=== PATIENT | female | born 1940 | race Caucasian/White ===

== ENCOUNTER 2021-10-31 10:15 | Emergency (ER) | payer OTHER ==
--- OUTSIDE RECORDS SUMMARY | 2021-10-31 10:18 | XMS REPORT | Continuity of Care Document ---
:1940 Author Organization [facility] t Address [address] [place] [address] Care Team Providers Name Role Phone Colleen Singh Attending Clinician Unavailable Millender Attending Clinician Unavailable Problems This patient has no known problems. Allergies, Adverse Reactions, Alerts This patient has no known allergies or adverse reactions. Medications This patient has no known medications. Procedures This patient has no known procedures. Encounters Start End Encounter Admission Attending Care Care Encounter Source Date/Time Date/Time Type Type Clinicians Facility Department ID 2021-09-29 Outpatient Singh, Na STLML[facility] ST[facility] [id number] 2 Common 09:09:02 [facility] 2021-07-03 Outpatient Singh, Na STLMLC STL[facility]C [id number] 2 Common 14:46:00 [facility] 2021-06-21 Outpatient Singh, Na STLMLC STLMLC [id number] 2 Common 14:22:28 [id number] [facility] 2021-06-21 Outpatient Singh, Na STLMLC STLMLC [id number] 2 Common 13:42:15 [id number] [facility] 2021-06-21 Outpatient Singh, Na STLMLC STLMLC [id number] 2 Common 13:29:49 [id number] [facility] 2021-06-21 Outpatient Singh, Na STLMLC STLMLC [id number] 2 Common 13:29:15 [id number] [facility] 2021-06-21 Outpatient Singh, Na STLMLC STLMLC [id number] 2 Common 13:13:13 [id number] [facility] 2021-06-21 Outpatient Singh, Na STLMLC STLMLC [id number] 2 Common 13:12:38 [id number] [facility] 2021-06-21 Outpatient Singh, Na STLMLC STLMLC [id number] 2 Common 12:39:38 [id number] [facility] 2021-06-21 Outpatient Singh, Na STLMLC STLMLC [id number] 2 Common 12:38:55 [id number] [facility] 2021-06-21 Outpatient Singh, Na STLMLC STLMLC [id number] 2 Common 12:05:32 [id number] [facility] 2021-06-21 Outpatient Singh, Na STLMLC STLMLC [id number] 2 Common 12:05:08 [id number] [facility] 2021-06-21 Outpatient Singh, Na STLMLC STLMLC [id number] 2 Common 12:04:34 [id number] [facility] 2021-06-21 Outpatient Millender, STLMLC STLMLC [id number]- Common 12:03:18 Elsy [id number] [facility] 2021-06-21 Outpatient Millender, STLMLC STLMLC [id number]- Common 11:49:01 Elsy [id number] [facility] 2021-06-21 Outpatient Millender, STLMLC STLMLC [id number]- Common 11:48:17 Elsy [id number] [facility] 2021-06-21 Outpatient Millender, STLMLC STLMLC [id number]- Common 11:40:18 Elsy [id number] [facility] 2021-10-03 2021-10-03 ambulatory STLMLC STLMLC [id number] Common 00:00:00 00:00:00 [facility] 2021-07-04 2021-07-04 ambulatory STLMLC STLMLC [id number] Common 00:00:00 00:00:00 [facility] 2021-05-11 2021-05-11 ambulatory STLMLC STLMLC [id number] Common 00:00:00 00:00:00 [facility] 2021-05-03 2021-05-03 ambulatory STLMLC STL[facility]C [id number] Common 00:00:00 00:00:00 [facility] 2021-04-17 2021-04-17 ambulatory STLMLC STL[facility]C [id number] Common 00:00:00 00:00:00 [facility] 2021-01-17 2021-01-17 Outpatient STLMLC STL[facility]C [id number] Common 00:00:00 00:00:00 [facility] 2020-12-28 2020-12-28 Outpatient STLMLC STL[facility]C [id number] Common 00:00:00 00:00:00 [facility] 2020-12-19 2020-12-19 Outpatient STLMLC STL[facility]C [id number] Common 00:00:00 00:00:00 [facility] 2020-12-16 2020-12-16 Outpatient [facility]LMLC STL[facility]C [id number] Common 00:00:00 00:00:00 [facility] 2020-12-08 2020-12-08 Outpatient [facility]C STL[facility]C [id number] Common 00:00:00 00:00:00 [facility] 2020-11-20 2020-11-20 Outpatient [facility]C ST[facility]C [id number] Common 00:00:00 00:00:00 [facility] 2020-11-04 2020-11-04 Outpatient [facility] ST[facility]C [id number] Common 00:00:00 00:00:00 [facility] 2020-08-05 2020-08-05 Outpatient [facility] ST[facility] [id number] Common 00:00:00 00:00:00 [facility] 2020-04-19 2020-04-19 Outpatient [facility] ST[facility]C [id number] Common 00:00:00 00:00:00 [facility] 2020-04-11 2020-04-11 [facility] [id number] Common 00:00:00 00:00:00 [facility] 2020-02-18 2020-02-18 [facility] [id number] Common 00:00:00 00:00:00 [facility] Results This patient has no known results.
[2021-10-31] MEDS ORDERED: NA CHLORIDE 0.9% 500 ML ONE (11:20)
[2021-10-31 11:32] LABS: Absolute Lymphocytes (CBC) 2.2 K/uL (0.7-4.9); Hematocrit 38.2 % (36.0-45.0); Lymphocytes % 35.4 % (15.3-44.8); MPV 9.4 fL (7.6-11.3); RBC Red Blood Cell Count 4.57 M/uL (3.86-4.86)
[2021-10-31 11:35] LABS: Protime INR 0.99
--- NOTE | 2021-10-31 11:38 | RAD REPORT ---
EXAM DESCRIPTION: CT - Head Brain Wo Cont - 10/31/2021 11:24 am CLINICAL HISTORY: Headache, new or worsening COMPARISON: No comparisons TECHNIQUE: Axial 5 mm thick images of the head were obtained without IV contrast. All CT scans are performed using dose optimization technique as appropriate and may include automated exposure control or mA/KV adjustment according to patient size. FINDINGS: No intracranial hemorrhage, mass, edema or shift of mid-line structures. No acute infarcti on changes seen. No abnormal extra-axial fluid collections. Ventricles are normal. No significant atr ophy or chronic ischemic change. Arterial tree calcifications are present. Mastoid air cells and visualized portions of the paranasal sinuses are clear. No acute bony findings. IMPRESSION: Negative non-contrast CT head examination for acute or significant finding.
[2021-10-31 12:03] LABS: ALT/SGPT 21 U/L (12-78); AST/SGOT 14 U/L (15-37); Albumin 3.8 g/dL (3.4-5.0); Alkaline Phosphatase 89 U/L (45-117); BUN Blood Urea Nitrogen 17 mg/dL (7-18); Bicarbonate 26 mmol/L (21-32); Bilirubin Total 0.3 mg/dL (0.2-1.0); Glomerular Filtration Rate 58 ml/min (=/>90); Glucose Level 124 mg/dL (74-106); Magnesium 2.2 mg/dL (1.8-2.4); Protein, Total 7.7 g/dL (6.4-8.2); Sodium Level 139 mmol/L (136-145)
[2021-10-31 12:04] LABS: Bilirubin Direct < 0.1 mg/dL (0-0.2)
--- NOTE | 2021-10-31 12:50 | EDPHYS ---
Physician Documentation [facility] Name: Sol Whittaker Age: 80 yrs Sex: Female : 1940 Arrival Date: 10/31/2021 Time: 10:19 Bed 6 Private MD: Shirley Singh ED Physician Jorge Colvin HPI: 10/31 12:41 This 80 yrs old Female presents to ER via Wheelchair with complaints of Dizziness. rn 12:41 The patient presents with dizziness. Onset: The symptoms/episode began/occurred 3 rn week(s) ago. Modifying factors: The symptoms are alleviated by lying down, the symptoms are aggravated by standing up, changing position. Severity of symptoms: At their worst the symptoms were moderate in the emergency department the symptoms have improved. The patient has experienced similar episodes in the past. The patient has been recently seen by a physician:. Reports intermittent dizziness, for 3 weeks, seen by pcp and told to stay hydrated. Pt reports worse in morning and when changing position. Was doing ok and then dizziness hit her again the last few days. Does not feel unsteady or falling, gets better on its own throughout the day, and best when not moving. NO chest pain/sob/abd pain/vomiting/diarrhea. No blood in stool. No recent head injury.. Historical: - Allergies: 10:27 MING INHIBITORS; ap3 10:27 Codeine; ap3 10:27 metoclopramide HCl; ap3 10:27 sulfamethoxazole; ap3 10:27 TRIMETHOPRIM; ap3 - PMHx: 10:27 Diabetes mellitus; Hypertensive disorder; ap3 - PSHx: 10:27 Appendectomy; Cholecystectomy; ap3 - Immunization history:: Client reports receiving the 2nd dose of the Covid vaccine. - Social history:: Smoking status: Patient/guardian denies using tobacco, the patient reports quitting approximately 30 years ago. - Family history:: not pertinent. - Hospitalizations: : No recent hospitalization is reported. ROS: 12:41 Constitutional: Negative for fever, chills, and weight loss, Eyes: Negative for injury, rn pain, redness, and discharge, Neck: Negative for injury, pain, and swelling, Cardiovascular: Negative for chest pain, palpitations, and edema, Respiratory: Negative for shortness of breath, cough, wheezing, and pleuritic chest pain, Abdomen/GI: Negative for abdominal pain, nausea, vomiting, diarrhea, and constipation, Back: Negative for injury and pain, : Negative for injury, bleeding, discharge, and swelling, MS/Extremity: Negative for injury and deformity, Skin: Negative for injury, rash, and discoloration, Neuro: Negative for headache, weakness, numbness, tingling, and seizure. Exam: 12:41 Constitutional: This is a well developed, well nourished patient who is awake, alert, rn and in no acute distress. Head/Face: Normocephalic, atraumatic. Eyes: Pupils equal round and reactive to light, extra-ocular motions intact. Lids and lashes normal. Conjunctiva and sclera are non-icteric and not injected. Cornea within normal limits. Periorbital areas with no swelling, redness, or edema. Neck: Trachea midline, no masses palpated, and no cervical lymphadenopathy. Supple, full range of motion without nuchal rigidity, or vertebral point tenderness. No Meningismus. Cardiovascular: Regular rate and rhythm. No pulse deficits. Respiratory: No increased work of breathing, no retractions or nasal flaring. Abdomen/GI: soft, non-tender, no masses Skin: Warm, dry MS/ Extremity: Pulses equal, no cyanosis. Neuro: Awake and alert, GCS 15, oriented to person, place, time, and situation. Cranial nerves II-XII grossly intact. Motor strength 5/5 in all extremities. Sensory grossly intact. Cerebellar exam normal. Vital Signs: 10:23 Pulse 72; Resp 17; Temp 97.7; Pulse Ox 97% ; Weight 79.83 kg; Height 5 ft. 6 in. ap3 (167.64 cm); 10:23 BP 155 / 79; ap3 11:49 BP 171 / 78; Pulse 64; Resp 14; Pulse Ox 93% ; bp 13:01 BP 165 / 84; Pulse 65; Resp 10; Pulse Ox 99% ; bp 10:23 Body Mass Index 28.41 (79.83 kg, 167.64 cm) ap3 MDM: 10:24 Patient medically screened. rn 12:41 Differential diagnosis: CVA, generalized weakness, hypovolemia, idiopathic dizziness, rn vertigo. Data reviewed: vital signs, nurses notes, lab test result(s), EKG, radiologic studies, CT scan, and as a result, I will discharge patient. Counseling: I had a detailed discussion with the patient and/or guardian regarding: the historical points, exam findings, and any diagnostic results supporting the discharge/admit diagnosis, lab results, radiology results, the need for outpatient follow up, to return to the emergency department if symptoms worsen or persist or if there are any questions or concerns that arise at home. Response to treatment: the patient's symptoms have markedly improved after treatment, and as a result, I will discharge patient. Special discussion: I discussed with the patient/guardian in detail that at this point there is no indication for admission to the hospital. It is understood, however, that if the symptoms persist or worsen the patient needs to return immediately for re-evaluation. Based on the history and exam findings, there is no indication for further emergent testing or inpatient evaluation. I discussed with the patient/guardian the need to see the neurologist for further evaluation of the symptoms. ED course: Pt improved without intervention, no acute findings in w/u here, normal renal function, normal h/h, neg ct head, no ischemia on ecg, stable vitals. Will dc home with neuro f/u if symptoms do not improve. Given return precautions.. 10/31 10:42 Order name: Glucose, Ancillary Testing; Complete Time: 10:46 EDMS 10/31 11:03 Order name: Basic Metabolic Panel; Complete Time: 12: rn 10/31 11:03 Order name: CBC with Diff; Complete Time: rn 10/31 11:03 Order name: Hepatic Function; Complete Time: 12: rn 10/31 11:03 Order name: Magnesium; Complete Time: 12: rn 10/31 11:03 Order name: Protime (+inr); Complete Time: rn 10/31 11:03 Order name: Ptt, Activated; Complete Time: : rn 10/31 11:03 Order name: CT Head Brain wo Cont; Complete Time: : rn 10/31 11:03 Order name: EKG; Complete Time: 11: rn 10/31 11:03 Order name: Cardiac monitoring; Complete Time: :10/31 13:10 Order name: Urine Dipstick-Ancillary EDMS 10/31 11:03 Order name: EKG - Nurse/Tech; Complete Time: 10/31 11:03 Order name: IV Saline Lock; Complete Time: 11:20 rn 10/31 11:03 Order name: Labs collected and sent; Complete Time: 11:20 rn 10/31 11:03 Order name: O2 Per Protocol; Complete Time: 11:04 rn 10/31 11:03 Order name: O2 Sat Monitoring; Complete Time: 11:04 rn 10/31 11:03 Order name: Urine Dipstick-Ancillary (obtain specimen); Complete Time: 13:18 rn Administered Medications: 11:15 Drug: NS 0.9% 500 ml Route: IV; Rate: bolus; Site: right forearm; bp 13:19 Follow up: IV Status: Completed infusion; IV Intake: 500ml bp 12:45 Drug: Meclizine 25 mg Route: PO; bp 13:18 Follow up: Response: Marked relief of symptoms bp 13:15 Drug: Cipro (ciprofloxacin) 500 mg Route: PO; bp 13:18 Follow up: Response: No adverse reaction bp Point of Care Testing: Blood Glucose: 10:30 Blood Glucose: 119 mg/dL; ap3 Ranges: Critical Glucose Levels:Adult <50 mg/dl or >400 mg/dl <40 mg/dl or >180 mg/dl Disposition Summary: 10/31/21 12:49 Discharge Ordered Location: Home rn Problem: new rn Symptoms: have improved rn Condition: Stable rn Diagnosis - Dizziness and giddiness rn - UTI/ Urinary tract infection, site not specified rn Followup: rn - With: Frederick Greer MD - When: As needed - Reason: Recheck today's complaints, Re-evaluation by your physician Discharge Instructions: - Discharge Summary Sheet rn - Dizziness rn - Urinary Tract Infection, Adult rn Forms: - Medication Reconciliation Form rn - Thank You Letter rn - 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
--- NOTE | 2021-10-31 12:50 | ER ---
Nurse's Notes [facility] Name: Sol Whittaker Age: 80 yrs Sex: Female : 1940 Arrival Date: 10/31/2021 Time: 10:19 Bed 6 Private MD: Shirley Singh Diagnosis: Dizziness and giddiness;UTI/ Urinary tract infection, site not specified Presentation: 10/31 10:23 Chief complaint: Patient states: that for a few weeks, she has had a few days where she ap3 wakes up feeling dizzy. Patient reports the dizzy feeling wears off as the day goes on. Patient states that she had a video call with her PCP, and was informed to come be evaluated by the ED. Coronavirus screen: At this time, the client does not indicate any symptoms associated with coronavirus-19. Ebola Screen: No symptoms or risks identified at this time. Initial Sepsis Screen: Does the patient meet any 2 criteria? No. Patient's initial sepsis screen is negative. Does the patient have a suspected source of infection? No. Patient's initial sepsis screen is negative. Risk Assessment: Do you want to hurt yourself or someone else? Patient reports no desire to harm self or others. Onset of symptoms was September 2021. 10:23 Method Of Arrival: Wheelchair ap3 10:25 Acuity: ANGELA 3 ap3 Triage Assessment: 10:27 General: Appears in no apparent distress. General: Behavior is calm, cooperative. Pain: ap3 Denies pain. Neuro: Reports dizziness. Cardiovascular: Patient's skin is warm and dry. Respiratory: Airway is patent Respiratory effort is even, unlabored. Historical: - Allergies: 10:27 MING INHIBITORS; ap3 10:27 Codeine; ap3 10:27 metoclopramide HCl; ap3 10:27 sulfamethoxazole; ap3 10:27 TRIMETHOPRIM; ap3 - PMHx: 10:27 Diabetes mellitus; Hypertensive disorder; ap3 - PSHx: 10:27 Appendectomy; Cholecystectomy; ap3 - Immunization history:: Client reports receiving the 2nd dose of the Covid vaccine. - Social history:: Smoking status: Patient/guardian denies using tobacco, the patient reports quitting approximately 30 years ago. - Family history:: not pertinent. - Hospitalizations: : No recent hospitalization is reported. Screenin:28 Abuse screen: Denies threats or abuse. Nutritional screening: No deficits noted. ap3 Tuberculosis screening: No symptoms or risk factors identified. 10:30 Fall Risk None identified. bp Assessment: 10:30 General: SEE TRIAGE NOTE. bp 11:49 Reassessment: No changes from previously documented assessment. Patient and/or family bp updated on plan of care and expected duration. Pain level reassessed. 13:19 Reassessment: PT D/C HOME VIA W/C WITH FAMILY, DX WITH DIZZINESS AND UTI. bp Vital Signs: 10:23 Pulse 72; Resp 17; Temp 97.7; Pulse Ox 97% ; Weight 79.83 kg; Height 5 ft. 6 in. ap3 (167.64 cm); 10:23 BP 155 / 79; ap3 11:49 BP 171 / 78; Pulse 64; Resp 14; Pulse Ox 93% ; bp 13:01 BP 165 / 84; Pulse 65; Resp 10; Pulse Ox 99% ; bp 10:23 Body Mass Index 28.41 (79.83 kg, 167.64 cm) ap3 ED Course: 10:19 Patient arrived in ED. am2 10:20 Shirley Singh MD is Private Physician. am2 10:24 Jorge Colvin MD is Attending Physician. rn 10:25 Triage completed. ap3 10:28 Arm band placed on right wrist. ap3 10:30 Patient has correct armband on for positive identification. Bed in low position. Call bp light in reach. Side rails up X2. 10:49 Pan Dorantes, RN is Primary Nurse. bp 11:10 Inserted saline lock: 20 gauge in right forearm, using aseptic technique. Blood bp collected. 11:26 CT Head Brain wo Cont In Process Unspecified. EDMS 12:49 Frederick Greer MD is Referral Physician. rn 13:18 No provider procedures requiring assistance completed. IV discontinued, intact, bp bleeding controlled, No redness/swelling at site. Pressure dressing applied. Administered Medications: 11:15 Drug: NS 0.9% 500 ml Route: IV; Rate: bolus; Site: right forearm; bp 13:19 Follow up: IV Status: Completed infusion; IV Intake: 500ml bp 12:45 Drug: Meclizine 25 mg Route: PO; bp 13:18 Follow up: Response: Marked relief of symptoms bp 13:15 Drug: Cipro (ciprofloxacin) 500 mg Route: PO; bp 13:18 Follow up: Response: No adverse reaction bp Medication: 10:30 VIS not applicable for this client. bp Point of Care Testing: Blood Glucose: 10:30 Blood Glucose: 119 mg/dL; ap3 Ranges: Intake: 13:19 IV: 500ml; Total: 500ml. bp Outcome: 12:49 Discharge ordered by . rn 13:18 Discharged to home via wheelchair, with family. bp 13:18 Condition: stable 13:18 Discharge instructions given to patient, Instructed on discharge instructions, follow up and referral plans. medication usage, Demonstrated understanding of instructions, follow-up care, medications, Prescriptions given X 2. 13:25 Patient left the ED. bp Signatures: Dispatcher [employer] EDMS Jorge Colvin MD MD rn Moreno, Amanda am2 Peltier, Brian RN RN bp Kathie Ag, RN RN ap3
[2021-10-31] MEDS ORDERED: MECLIZINE HCL 12.5 MG TAB ONE (12:52)
[2021-10-31 13:10] LABS: Urine Blood 1+ (Negative); Urine Glucose Negative (Negative); Urine Protein Negative (Negative); Urine Specific Gravity 1.015 (1.005-1.030); Urine pH 6.5 (5.0-7.0)
[2021-10-31] MEDS ORDERED: CIPROFLOXACIN HCL 500 MG TAB ONE (13:20)
[2021-10-31 13:36] VITALS: TEMP 97.7
[2021-10-31 13:41] VITALS: BP 165/84; O2SAT 99
--- NOTE | 2021-11-01 07:56 | EKG ---
Test Date: 2021-10-31 Test Time: 11:12:03 Train Attendant: SANGEETA MEASUREMENT RESULTS: Intervals: Rate: 61 SC: 174 QRSD: 80 QT: 418 QTc: [address]: P: 73 SC: 174 QRS: 73 T: 72 INTERPRETIVE STATEMENTS: Sinus rhythm with occasional premature ventricular complexes Otherwise normal ECG Compared to ECG 09/18/2015 08:17:24 Ventricular premature complex(es) now present Electronically Signed On 11-01-21 07:52:43 CDT by Oral Londono
== END 2021-10-31 13:25 | disposition home or self-care (01) ==
LOC: ER 10:15
DX: N39.0 Urinary tract infection, site not specified (principal); E11.9 Type 2 diabetes mellitus without complications; I10 Essential (primary) hypertension; Z88.2 Allergy status to sulfonamides; Z88.5 Allergy status to narcotic agent; Z91.018 Allergy to other foods
CPT/HCPCS: 96361; 93005; 85025; 80048; 36415; 83735; 85610; 82947; 80076; 85730; 81003; 70450; 96360; 99284; J8597; J7040

== ENCOUNTER 2023-09-24 07:47 | Emergency (ER) | payer OTHER ==
--- OUTSIDE RECORDS SUMMARY | 2023-09-24 07:58 | XMS REPORT | Continuity of Care Document ---
Author Name Unknown Address [address] [facility] [place]. [address] th[address] Address [address] [facility] [place]. [address] [place] [address] Care Team Providers Care Testing Director Name Role Phone Fabio Lucas Attending Clinician Unavailable Shirley MAR Attending Clinician Unavailable Elsy Rosado Attending Clinician Unavailable Payers Payer Name Policy Type Policy Number Effective Date Expiration Date Source [employer] Supplement Plan C1 [id number] 2018 00:00:00 [facility] MEDICARE NOVITAS MB [id number] 2007 00:00:00 [facility] Problems Condition Name Condition Details Condition Category Status Onset Date Resolution Date Last Treatment Date Treating Clinician Comments Source [id number] Chronic cystitis Problem [facility] [id number] Asymptomat ic bacteriuri a Problem [facility] [id number] Bilateral carpal tunnel syndrome Problem [facility] [id number] Type 2 diabetes mellitus with diabetic chronic kidney disease Problem [facility] [id number] Stage 3a chronic kidney disease (CKD) Problem [facility] [id number] Environmen rashad allergies Problem [facility] [id number] JIMBO (generaliz ed anxiety disorder) Problem [facility] [id number] Type 2 diabetes mellitus with other diabetic kidney complicati on Problem [facility] [id number] Moderate major depression , single episode Problem [facility] Type II diabetes mellitus without complicati on Controlled type 2 diabetes mellitus without complicati on, without long-term current use of insulin Problem [facility] [id number] Pain in left knee Problem [facility] [id number] Left arm pain Problem [facility] [id number] Other chronic pain Problem [facility] [id number] Abnormal laboratory test result Problem [facility] [id number] Bladder wall thickening Problem [facility] [id number] Acute cystitis with hematuria Problem [facility] [id number] Microscopi c hematuria Problem [facility] [id number] History of recurrent UTIs Problem [facility] [id number] Depression with anxiety Problem [facility] Gastroesop hageal reflux disease GERD without esophagiti s Problem [facility] [id number] Abnormal kidney function Problem [facility] [id number] Anemia, unspecifie d type Problem [facility] Hypertensi on Hypertensi on, unspecifie d type Problem [facility] [id number] 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 Problem [facility] Hyperlipid emia Hyperlipid emia, unspecifie d hyperlipid emia type Problem [facility] Low back pain Low back pain Problem [facility] [id number] Pain of lower extremity, unspecifie d laterality Problem [facility] [id number] Carotid atheroscle rosis, unspecifie d laterality Problem [facility] [id number] Difficulty sleeping Problem [facility] [id number] Diminished pulses in lower extremity Problem [facility] [id number] Motion sickness, sequela Problem [facility] [id number] Leukocytos is, unspecifie d type Problem [facility] [id number] Pain of left thumb Problem [facility] [id number] Seasonal allergic rhinitis, unspecifie d trigger Problem [facility] [id number] Right hip pain Problem [facility] [id number] Right leg pain Problem [facility] [id number] Bacterial infection of knee joint Problem [facility] [id number] Oral thrush Problem [facility] [id number] Polyarthra lgia Problem [facility] [id number] Dizziness Problem [facility] Allergies, Adverse Reactions, Alerts Allergy Name Allergy Type Status Severity Reaction(s) Onset Date Inactive Date Treating Clinician Comments Source metoclop ramide metoclop ramide Active Unknown [facility] sulfamet hoxazole / trimetho prim sulfamet hoxazole / trimetho prim Active Unknown [facility] Codeine Codeine Active Unknown [facility] Social History Social Habit Start Date Stop Date Quantity Comments Source History of Tobacco Use [facility] Sex Assigned At [facility] Smoking Status Start Date Stop Date Source Never Smoker [facility] Former Smoker 2023-04-26 00:00:00 2023-04-26 00:00:00 [facility] Medications Ordered Medication Name Filled Medication Name Start Date Stop Date Current Medication? Ordering Clinician Indication Dosage Frequency Signature (SIG) Comments Components Source Cephalexin 500 MG Cephalexin 500 MG 08-25 00:00: 00 No 1{capsu le} TID Cephalexin 500 MG Nitrofurant oin Monohyd Macro 100 MG Nitrofurant oin Monohyd Macro 100 MG 08-25 00:00: 00 No 1{capsu le_with _food} QD Nitrofuran toin Monohyd Macro 100 MG Cephalexin 500 MG Cephalexin 500 MG 08-25 00:00: 00 No 1{capsu le} TID Cephalexin 500 MG Nitrofurant oin Monohyd Macro 100 MG Nitrofurant oin Monohyd Macro 100 MG 08-25 00:00: 00 No 1{capsu le_with _food} QD Nitrofuran toin Monohyd Macro 100 MG Clotrimazol e-Betametha sone 1-0.05 % Clotrimazol e-Betametha sone 1-0.05 % 2022-05 00:00: 00 No 1{appli cation} BID Clotrimazo le-Betamet hasone 1-0.05 % Clotrimazol e-Betametha sone 1-0.05 % Clotrimazol e-Betametha sone 1-0.05 % 2022-05 00:00: 00 No 1{appli cation} BID Clotrimazo le-Betamet hasone 1-0.05 % Clotrimazol e-Betametha sone 1-0.05 % Clotrimazol e-Betametha sone 1-0.05 % 2022-05 00:00: 00 No 1{appli cation} BID Clotrimazo le-Betamet hasone 1-0.05 % Clotrimazol e-Betametha sone 1-0.05 % Clotrimazol e-Betametha sone 1-0.05 % 2022-05 00:00: 00 No 1{appli cation} BID Clotrimazo le-Betamet hasone 1-0.05 % Clotrimazol e-Betametha sone 1-0.05 % Clotrimazol e-Betametha sone 1-0.05 % 2022-05 00:00: 00 No 1{appli cation} BID Clotrimazo le-Betamet hasone 1-0.05 % Clotrimazol e-Betametha sone 1-0.05 % Clotrimazol e-Betametha sone 1-0.05 % 2022-05 00:00: 00 No 1{appli cation} BID Clotrimazo le-Betamet hasone 1-0.05 % Cephalexin 500 MG Cephalexin 500 MG 2022-05 00:00: 00 No 1{capsu le} QID Cephalexin 500 MG Clotrimazol e-Betametha sone 1-0.05 % Clotrimazol e-Betametha sone 1-0.05 % 2022-05 00:00: 00 No 1{appli cation} BID Clotrimazo le-Betamet hasone 1-0.05 % Cephalexin 500 MG Cephalexin 500 MG 2022-05 00:00: 00 No 1{capsu le} QID Cephalexin 500 MG Clotrimazol e-Betametha sone 1-0.05 % Clotrimazol e-Betametha sone 1-0.05 % 2022-05 00:00: 00 No 1{appli cation} BID Clotrimazo le-Betamet hasone 1-0.05 % Cephalexin 500 MG Cephalexin 500 MG 2022-05 00:00: 00 No 1{capsu le} QID Cephalexin 500 MG Clotrimazol e-Betametha sone 1-0.05 % Clotrimazol e-Betametha sone 1-0.05 % 2022-05 00:00: 00 No 1{appli cation} BID Clotrimazo le-Betamet hasone 1-0.05 % Clotrimazol e-Betametha sone 1-0.05 % Clotrimazol e-Betametha sone 1-0.05 % 2022-05 00:00: 00 No 1{appli cation} BID Clotrimazo le-Betamet hasone 1-0.05 % Clotrimazol e-Betametha sone 1-0.05 % Clotrimazol e-Betametha sone 1-0.05 % 2022-05 00:00: 00 No 1{appli cation} BID Clotrimazo le-Betamet hasone 1-0.05 % Clotrimazol e-Betametha sone 1-0.05 % Clotrimazol e-Betametha sone 1-0.05 % 2022-05 00:00: 00 No 1{appli cation} BID Clotrimazo le-Betamet hasone 1-0.05 % Clotrimazol e-Betametha sone 1-0.05 % Clotrimazol e-Betametha sone 1-0.05 % 2022-05 2- 00:00: 00 No 1{appli cation} BID Clotrimazo le-Betamet hasone 1-0.05 % Cephalexin 500 MG Cephalexin 500 MG 2022-05 2- 00:00: 00 No 1{capsu le} TID Cephalexin 500 MG Cephalexin 500 MG Cephalexin 500 MG 2022-05 2- 00:00: 00 No 1{capsu le} TID Cephalexin 500 MG Cephalexin 500 MG Cephalexin 500 MG 2022-05 2- 00:00: 00 No 1{capsu le} TID Cephalexin 500 MG Cephalexin 500 MG Cephalexin 500 MG 2022-05 2- 00:00: 00 No 1{capsu le} TID Cephalexin 500 MG Cephalexin 500 MG Cephalexin 500 MG 2022-05 2- 00:00: 00 No 1{capsu le} TID Cephalexin 500 MG Cephalexin 500 MG Cephalexin 500 MG 2022-05 2- 00:00: 00 No 1{capsu le} TID Cephalexin 500 MG Cephalexin 500 MG Cephalexin 500 MG 2022-05 2- 00:00: 00 No 1{capsu le} TID Cephalexin 500 MG Cephalexin 500 MG Cephalexin 500 MG 2022-05 2- 00:00: 00 No 1{capsu le} TID Cephalexin 500 MG Cephalexin 500 MG Cephalexin 500 MG 2022-05 2- 00:00: 00 No 1{capsu le} TID Cephalexin 500 MG Cephalexin 500 MG Cephalexin 500 MG 2022-05 2- 00:00: 00 No 1{capsu le} TID Cephalexin 500 MG Cephalexin 500 MG Cephalexin 500 MG 2022-05 2- 00:00: 00 No 1{capsu le} TID Cephalexin 500 MG Cephalexin 500 MG Cephalexin 500 MG 2022-05 2- 00:00: 00 No 1{capsu le} TID Cephalexin 500 MG Cephalexin 500 MG Cephalexin 500 MG 2022-05 2- 00:00: 00 No 1{capsu le} TID Cephalexin 500 MG Cephalexin 500 MG Cephalexin 500 MG 2022-05 2- 00:00: 00 No 1{capsu le} TID Cephalexin 500 MG Cephalexin 500 MG Cephalexin 500 MG 2022-05 2- 00:00: 00 No 1{capsu le} TID Cephalexin 500 MG Cephalexin 500 MG Cephalexin 500 MG 2022-05 2 00:00: 00 No 1{capsu le} TID Cephalexin 500 MG Azelastine HCl 0.1 % Azelastine HCl 0.1 % 2021-05 2 00:00: 00 No 2{spray s_in_ea ch_nost ril} QD Azelastine HCl 0.1 % Azelastine HCl 0.1 % Azelastine HCl 0.1 % 2021-05 2 00:00: 00 No 2{spray s_in_ea ch_nost ril} QD Azelastine HCl 0.1 % Azelastine HCl 0.1 % Azelastine HCl 0.1 % 2021-05 2 00:00: 00 No 2{spray s_in_ea ch_nost ril} QD Azelastine HCl 0.1 % Azelastine HCl 0.1 % Azelastine HCl 0.1 % 2021-05 00:00: 00 No 2{spray s_in_ea ch_nost ril} QD Azelastine HCl 0.1 % Clotrimazol e 10 MG Clotrimazol e 10 MG 2021-05 2 00:00: 00 05-10 00:00 :00 No Clotrimazo le 10 MG Clotrimazol e 10 MG Clotrimazol e 10 MG 2021-05 2 00:00: 00 05-10 00:00 :00 No Clotrimazo le 10 MG Clotrimazol e 10 MG Clotrimazol e 10 MG 2021-05 2 00:00: 00 05-10 00:00 :00 No Clotrimazo le 10 MG Nystatin [id number] UNIT/ML Nystatin 863346 UNIT/ML 11-08 00:00: 00 11-18 00:00 :00 No QID Nystatin 758842 UNIT/ML Rosuvastati n Calcium 20 MG Rosuvastati n Calcium 20 MG 2020-05 00:00: 00 No 1{table t} QD Rosuvastat in Calcium 20 MG Rosuvastati n Calcium 20 MG Rosuvastati n Calcium 20 MG 2020-05 00:00: 00 No 1{table t} QD Rosuvastat in Calcium 20 MG Rosuvastati n Calcium 20 MG Rosuvastati n Calcium 20 MG 2020-05 00:00: 00 No 1{table t} QD Rosuvastat in Calcium 20 MG Rosuvastati n Calcium 20 MG Rosuvastati n Calcium 20 MG 2020-05 00:00: 00 No 1{table t} QD Rosuvastat in Calcium 20 MG Rosuvastati n Calcium 20 MG Rosuvastati n Calcium 20 MG 2020-05 00:00: 00 No 1{table t} QD Rosuvastat in Calcium 20 MG Blood Glucose Test Strip Blood Glucose Test Strip 0 10-02 00:00: 00 No Blood Glucose Test Strip Blood Glucose Monitor Blood Glucose Monitor 0 10-02 00:00: 00 No Blood Glucose Monitor Blood Glucose Test Strip Blood Glucose Test Strip 0 10-02 00:00: 00 No Blood Glucose Test Strip Blood Glucose Test Strip Blood Glucose Test Strip 0 10-02 00:00: 00 No Blood Glucose Test Strip Blood Glucose Test Strip Blood Glucose Test Strip 0 10-02 00:00: 00 No Blood Glucose Test Strip Blood Glucose Test Strip Blood Glucose Test Strip 0 10-02 00:00: 00 No Blood Glucose Test Strip Blood Glucose Test Strip Blood Glucose Test Strip 0 10-02 00:00: 00 No Blood Glucose Test Strip Blood Glucose Test Strip Blood Glucose Test Strip 0 10-02 00:00: 00 No Blood Glucose Test Strip Blood Glucose Test Strip Blood Glucose Test Strip 0 10-02 00:00: 00 No Blood Glucose Test Strip Blood Glucose Test Strip Blood Glucose Test Strip 0 10-02 00:00: 00 No Blood Glucose Test Strip Blood Glucose Test Strip Blood Glucose Test Strip 0 10-02 00:00: 00 No Blood Glucose Test Strip Blood Glucose Test Strip Blood Glucose Test Strip 0 10-02 00:00: 00 No Blood Glucose Test Strip Blood Glucose Test Strip Blood Glucose Test Strip 10-02 00:00: 00 No Blood Glucose Test Strip Blood Glucose Test Strip Blood Glucose Test Strip 10-02 00:00: 00 No Blood Glucose Test Strip Blood Glucose Test Strip Blood Glucose Test Strip 10-02 00:00: 00 No Blood Glucose Test Strip Blood Glucose Test Strip Blood Glucose Test Strip 10-02 00:00: 00 No Blood Glucose Test Strip Blood Glucose Test Strip Blood Glucose Test Strip 10-02 00:00: 00 No Blood Glucose Test Strip Blood Glucose Test Strip Blood Glucose Test Strip 10-02 00:00: 00 No Blood Glucose Test Strip Cyclobenzap rine HCl 10 MG Cyclobenzap rine HCl 10 MG No 1{table t_as_ne eded} TID Cyclobenza veto HCl 10 MG Crestor 20 mg Crestor 20 mg No QD Crestor 20 mg busPIRone HCl 15 MG busPIRone HCl 15 MG No QD busPIRone HCl 15 MG D-Mannose 500 MG D-Mannose 500 MG No D-Mannose 500 MG Citalopram Hydrobromid e 20 MG Citalopram Hydrobromid e 20 MG No 1{table t} QD Citalopram Hydrobromi de 20 MG metFORMIN HCl 500 MG metFORMIN HCl 500 MG No metFORMIN HCl 500 MG Lansoprazol e 30 MG Lansoprazol e 30 MG No Lansoprazo le 30 MG Gabapentin 300 MG Gabapentin 300 MG No 1{table t} QD Gabapentin 300 MG Cozaar 25 MG Cozaar 25 MG No 1{table t} QD Cozaar 25 MG Cozaar 25 MG Cozaar 25 MG No QD Cozaar 25 MG Super B Complex Super B Complex No Super B Complex Famotidine 20 MG Famotidine 20 MG No 1{table t_at_be dtime_a s_neede d} QD Famotidine 20 MG Lansoprazol e 30 MG Lansoprazol e 30 MG No 1{capsu le_befo re_a_me al} QD Lansoprazo le 30 MG Amitriptyli ne HCl 50 MG Amitriptyli ne HCl 50 MG No QD Amitriptyl ine HCl 50 MG Crestor 20 mg Crestor 20 mg No QD Crestor 20 mg busPIRone HCl 15 MG busPIRone HCl 15 MG No QD busPIRone HCl 15 MG D-Mannose 500 MG D-Mannose 500 MG No D-Mannose 500 MG Citalopram Hydrobromid e 20 MG Citalopram Hydrobromid e 20 MG No 1{table t} QD Citalopram Hydrobromi de 20 MG metFORMIN HCl 500 MG metFORMIN HCl 500 MG No metFORMIN HCl 500 MG Gabapentin 300 MG Gabapentin 300 MG No 1{table t} QD Gabapentin 300 MG Lansoprazol e 30 MG Lansoprazol e 30 MG No 1{capsu le} QD Lansoprazo le 30 MG Crestor 20 mg Crestor 20 mg No QD Crestor 20 mg Cozaar 25 MG Cozaar 25 MG No QD Cozaar 25 MG Super B Complex Super B Complex No Super B Complex Famotidine 20 MG Famotidine 20 MG No 1{table t_at_be dtime_a s_neede d} QD Famotidine 20 MG Lansoprazol e 30 MG Lansoprazol e 30 MG No 1{capsu le_befo re_a_me al} QD Lansoprazo le 30 MG Crestor 20 mg Crestor 20 mg No QD Crestor 20 mg busPIRone HCl 15 MG busPIRone HCl 15 MG No QD busPIRone HCl 15 MG D-Mannose 500 MG D-Mannose 500 MG No D-Mannose 500 MG Citalopram Hydrobromid e 20 MG Citalopram Hydrobromid e 20 MG No 1{table t} QD Citalopram Hydrobromi de 20 MG metFORMIN HCl 500 MG metFORMIN HCl 500 MG No metFORMIN HCl 500 MG Gabapentin 300 MG Gabapentin 300 MG No 1{table t} QD Gabapentin 300 MG Lancets - Lancets - No Lancets - metFORMIN HCl 500 MG metFORMIN HCl 500 MG No metFORMIN HCl 500 MG Gabapentin 300 MG Gabapentin 300 MG No 1{table t} QD Gabapentin 300 MG Citalopram Hydrobromid e 20 MG Citalopram Hydrobromid e 20 MG No 1{table t} QD Citalopram Hydrobromi de 20 MG Famotidine 20 MG Famotidine 20 MG No 1{table t_at_be dtime_a s_neede d} QD Famotidine 20 MG Lansoprazol e 30 MG Lansoprazol e 30 MG No 1{capsu le_befo re_a_me al} QD Lansoprazo le 30 MG Crestor 20 mg Crestor 20 mg No QD Crestor 20 mg Ativan 2 MG Ativan 2 MG No QD At micheal 2 MG busPIRone HCl 15 MG busPIRone HCl 15 MG No QD busPIRone HCl 15 MG D-Mannose 500 MG D-Mannose 500 MG No D-Mannose 500 MG Cozaar 25 MG Cozaar 25 MG No QD Cozaar 25 MG Aspir-81 Aspir-81 No Aspir-81 busPIRone HCl 15 MG busPIRone HCl 15 MG No QD busPIRone HCl 15 MG metFORMIN HCl 500 MG metFORMIN HCl 500 MG No 1{table t_with_ a_meal} BID metFORMIN HCl 500 MG Super B Complex Super B Complex No Super B Complex metFORMIN HCl 500 MG metFORMIN HCl 500 MG No metFORMIN HCl 500 MG Gabapentin 300 MG Gabapentin 300 MG No 1{table t} QD Gabapentin 300 MG Citalopram Hydrobromid e 20 MG Citalopram Hydrobromid e 20 MG No 1{table t} QD Citalopram Hydrobromi de 20 MG Amoxicillin -Pot Clavulanate 500-125 MG Amoxicillin -Pot Clavulanate 500-125 MG No 1{table t} Amoxicilli n-Pot Clavulanat e 500-125 MG Famotidine 20 MG Famotidine 20 MG No 1{table t_at_be dtime_a s_neede d} QD Famotidine 20 MG Crestor 20 mg Crestor 20 mg No QD Crestor 20 mg busPIRone HCl 15 MG busPIRone HCl 15 MG No QD busPIRone HCl 15 MG Cozaar 25 MG Cozaar 25 MG No QD Cozaar 25 MG Lansoprazol e 30 MG Lansoprazol e 30 MG No 1{capsu le_befo re_a_me al} QD Lansoprazo le 30 MG D-Mannose 500 MG D-Mannose 500 MG No D-Mannose 500 MG Citalopram Hydrobromid e 20 MG Citalopram Hydrobromid e 20 MG No 1{table t} QD Citalopram Hydrobromi de 20 MG Aspir-81 Aspir-81 No Aspir-81 metFORMIN HCl 500 MG metFORMIN HCl 500 MG No metFORMIN HCl 500 MG Gabapentin 300 MG Gabapentin 300 MG No 1{table t} QD Gabapentin 300 MG Citalopram Hydrobromid e 20 MG Citalopram Hydrobromid e 20 MG No 1{table t} QD Citalopram Hydrobromi de 20 MG Famotidine 20 MG Famotidine 20 MG No 1{table t_at_be dtime_a s_neede d} QD Famotidine 20 MG Crestor 20 mg Crestor 20 mg No QD Crestor 20 mg busPIRone HCl 15 MG busPIRone HCl 15 MG No QD busPIRone HCl 15 MG Cozaar 25 MG Cozaar 25 MG No QD Cozaar 25 MG Lansoprazol e 30 MG Lansoprazol e 30 MG No 1{capsu le_befo re_a_me al} QD Lansoprazo le 30 MG D-Mannose 500 MG D-Mannose 500 MG No D-Mannose 500 MG Metoprolol Tartrate 25 MG Metoprolol Tartrate 25 MG No BID Metoprolol Tartrate 25 MG metFORMIN HCl 500 MG metFORMIN HCl 500 MG No 1{table t_with_ a_meal} BID metFORMIN HCl 500 MG Amitriptyli ne HCl 50 MG Amitriptyli ne HCl 50 MG No QD Amitriptyl ine HCl 50 MG Lancets - Lancets - No Lancets - Citalopram Hydrobromid e 20 MG Citalopram Hydrobromid e 20 MG No 1{table t} QD Citalopram Hydrobromi de 20 MG Amoxicillin -Pot Clavulanate 500-125 MG Amoxicillin -Pot Clavulanate 500-125 MG No 1{table t} Amoxicilli n-Pot Clavulanat e 500-125 MG busPIRone HCl 15 MG busPIRone HCl 15 MG No QD busPIRone HCl 15 MG Cozaar 25 MG Cozaar 25 MG No 1{table t} QD Cozaar 25 MG Metoprolol Tartrate 25 MG Metoprolol Tartrate 25 MG No Metoprolol Tartrate 25 MG Crestor 20 mg Crestor 20 mg No QD Crestor 20 mg Lansoprazol e 30 MG Lansoprazol e 30 MG No 1{capsu le} QD Lansoprazo le 30 MG Cyclobenzap rine HCl 10 MG Cyclobenzap rine HCl 10 MG No 1{table t_as_ne eded} TID Cyclobenza veto HCl 10 MG Ativan 2 MG Ativan 2 MG No QD At micheal 2 MG Lancets - Lancets - No Lancets - Losartan Potassium 25 MG Losartan Potassium 25 MG No Losartan Potassium 25 MG Gabapentin 600 MG Gabapentin 600 MG No QD Gabapentin 600 MG Gabapentin 300 MG Gabapentin 300 MG No QD Gabapentin 300 MG Lancets - Lancets - No Lancets - Metoprolol Tartrate 25 MG Metoprolol Tartrate 25 MG No Metoprolol Tartrate 25 MG Gabapentin 300 MG Gabapentin 300 MG No QD Gabapentin 300 MG Gabapentin 600 MG Gabapentin 600 MG No QD Gabapentin 600 MG Lansoprazol e 30 MG Lansoprazol e 30 MG No Lansoprazo le 30 MG Citalopram Hydrobromid e 20 MG Citalopram Hydrobromid e 20 MG No 1{table t} QD Citalopram Hydrobromi de 20 MG metFORMIN HCl 500 MG metFORMIN HCl 500 MG No metFORMIN HCl 500 MG Crestor 20 mg Crestor 20 mg No QD Crestor 20 mg busPIRone HCl 15 MG busPIRone HCl 15 MG No QD busPIRone HCl 15 MG Losartan Potassium 25 MG Losartan Potassium 25 MG No Losartan Potassium 25 MG Amitriptyli ne HCl 50 MG Amitriptyli ne HCl 50 MG No QD Amitriptyl ine HCl 50 MG Lancets - Lancets - No Lancets - Citalopram Hydrobromid e 20 MG Citalopram Hydrobromid e 20 MG No 1{table t} QD Citalopram Hydrobromi de 20 MG Losartan Potassium 25 MG Losartan Potassium 25 MG No Losartan Potassium 25 MG metFORMIN HCl 500 MG metFORMIN HCl 500 MG No metFORMIN HCl 500 MG Metoprolol Tartrate 25 MG Metoprolol Tartrate 25 MG No Metoprolol Tartrate 25 MG Lansoprazol e 30 MG Lansoprazol e 30 MG No Lansoprazo le 30 MG Gabapentin 300 MG Gabapentin 300 MG No QD Gabapentin 300 MG Amitriptyli ne HCl 50 MG Amitriptyli ne HCl 50 MG No QD Amitriptyl ine HCl 50 MG Gabapentin 600 MG Gabapentin 600 MG No QD Gabapentin 600 MG Crestor 20 mg Crestor 20 mg No QD Crestor 20 mg busPIRone HCl 15 MG busPIRone HCl 15 MG No QD busPIRone HCl 15 MG Lancets - Lancets - No Lancets - Gabapentin 600 MG Gabapentin 600 MG No QD Gabapentin 600 MG Metoprolol Tartrate 25 MG Metoprolol Tartrate 25 MG No Metoprolol Tartrate 25 MG Lansoprazol e 30 MG Lansoprazol e 30 MG No Lansoprazo le 30 MG Citalopram Hydrobromid e 20 MG Citalopram Hydrobromid e 20 MG No 1{table t} QD Citalopram Hydrobromi de 20 MG Losartan Potassium 25 MG Losartan Potassium 25 MG No Losartan Potassium 25 MG metFORMIN HCl 500 MG metFORMIN HCl 500 MG No metFORMIN HCl 500 MG busPIRone HCl 15 MG busPIRone HCl 15 MG No QD busPIRone HCl 15 MG Crestor 20 mg Crestor 20 mg No QD Crestor 20 mg Nystatin 297092 UNIT/ML Nystatin 602311 UNIT/ML No Nystatin 401190 UNIT/ML Gabapentin 300 MG Gabapentin 300 MG No QD Gabapentin 300 MG Amitriptyli ne HCl 50 MG Amitriptyli ne HCl 50 MG No QD Amitriptyl ine HCl 50 MG Lansoprazol e 30 MG Lansoprazol e 30 MG No Lansoprazo le 30 MG Amitriptyli ne HCl 50 MG Amitriptyli ne HCl 50 MG No QD Amitriptyl ine HCl 50 MG Lancets - Lancets - No Lancets - Gabapentin 600 MG Gabapentin 600 MG No QD Gabapentin 600 MG Metoprolol Tartrate 25 MG Metoprolol Tartrate 25 MG No Metoprolol Tartrate 25 MG Citalopram Hydrobromid e 20 MG Citalopram Hydrobromid e 20 MG No 1{table t} QD Citalopram Hydrobromi de 20 MG Losartan Potassium 25 MG Losartan Potassium 25 MG No Losartan Potassium 25 MG busPIRone HCl 15 MG busPIRone HCl 15 MG No QD busPIRone HCl 15 MG Crestor 20 mg Crestor 20 mg No QD Crestor 20 mg Nystatin 834844 UNIT/ML Nystatin 253313 UNIT/ML No Nystatin 649845 UNIT/ML Gabapentin 300 MG Gabapentin 300 MG No QD Gabapentin 300 MG metFORMIN HCl 500 MG metFORMIN HCl 500 MG No metFORMIN HCl 500 MG Nystatin 782211 UNIT/ML Nystatin 418978 UNIT/ML No Nystatin 949040 UNIT/ML Lansoprazol e 30 MG Lansoprazol e 30 MG No Lansoprazo le 30 MG Rosuvastati n Calcium 20 MG Rosuvastati n Calcium 20 MG No Rosuvastat in Calcium 20 MG Amitriptyli ne HCl 50 MG Amitriptyli ne HCl 50 MG No QD Amitriptyl ine HCl 50 MG Cozaar 25 MG Cozaar 25 MG No QD Cozaar 25 MG Lancets - Lancets - No Lancets - Crestor 20 mg Crestor 20 mg No QD Crestor 20 mg busPIRone HCl 15 MG busPIRone HCl 15 MG No QD busPIRone HCl 15 MG Citalopram Hydrobromid e 20 MG Citalopram Hydrobromid e 20 MG No 1{table t} QD Citalopram Hydrobromi de 20 MG metFORMIN HCl 500 MG metFORMIN HCl 500 MG No metFORMIN HCl 500 MG Gabapentin 600 MG Gabapentin 600 MG No QD Gabapentin 600 MG Nystatin 741863 UNIT/ML Nystatin 748200 UNIT/ML No Nystatin 354320 UNIT/ML Lansoprazol e 30 MG Lansoprazol e 30 MG No Lansoprazo le 30 MG Rosuvastati n Calcium 20 MG Rosuvastati n Calcium 20 MG No Rosuvastat in Calcium 20 MG Amitriptyli ne HCl 50 MG Amitriptyli ne HCl 50 MG No QD Amitriptyl ine HCl 50 MG Cozaar 25 MG Cozaar 25 MG No QD Cozaar 25 MG Lancets - Lancets - No Lancets - Crestor 20 mg Crestor 20 mg No QD Crestor 20 mg busPIRone HCl 15 MG busPIRone HCl 15 MG No QD busPIRone HCl 15 MG Citalopram Hydrobromid e 20 MG Citalopram Hydrobromid e 20 MG No 1{table t} QD Citalopram Hydrobromi de 20 MG metFORMIN HCl 500 MG metFORMIN HCl 500 MG No metFORMIN HCl 500 MG Gabapentin 600 MG Gabapentin 600 MG No QD Gabapentin 600 MG Nystatin 014062 UNIT/ML Nystatin 131972 UNIT/ML No Nystatin 176547 UNIT/ML Lansoprazol e 30 MG Lansoprazol e 30 MG No Lansoprazo le 30 MG Amitriptyli ne HCl 50 MG Amitriptyli ne HCl 50 MG No QD Amitriptyl ine HCl 50 MG Citalopram Hydrobromid e 20 MG Citalopram Hydrobromid e 20 MG No 1{table t} QD Citalopram Hydrobromi de 20 MG Cozaar 25 MG Cozaar 25 MG No QD Cozaar 25 MG Lancets - Lancets - No Lancets - Gabapentin 600 MG Gabapentin 600 MG No QD Gabapentin 600 MG busPIRone HCl 15 MG busPIRone HCl 15 MG No QD busPIRone HCl 15 MG Crestor 20 mg Crestor 20 mg No QD Crestor 20 mg Rosuvastati n Calcium 20 MG Rosuvastati n Calcium 20 MG No Rosuvastat in Calcium 20 MG metFORMIN HCl 500 MG metFORMIN HCl 500 MG No metFORMIN HCl 500 MG Citalopram Hydrobromid e 20 MG Citalopram Hydrobromid e 20 MG No 1{table t} QD Citalopram Hydrobromi de 20 MG busPIRone HCl 15 MG busPIRone HCl 15 MG No QD busPIRone HCl 15 MG Cozaar 25 MG Cozaar 25 MG No QD Cozaar 25 MG metFORMIN HCl 500 MG metFORMIN HCl 500 MG No metFORMIN HCl 500 MG Lancets - Lancets - No Lancets - Lansoprazol e 30 MG Lansoprazol e 30 MG No 1{capsu le_befo re_a_me al} QD Lansoprazo le 30 MG Gabapentin 300 MG Gabapentin 300 MG No 1{table t} QD Gabapentin 300 MG Crestor 20 mg Crestor 20 mg No QD Crestor 20 mg Citalopram Hydrobromid e 20 MG Citalopram Hydrobromid e 20 MG No 1{table t} QD Citalopram Hydrobromi de 20 MG busPIRone HCl 15 MG busPIRone HCl 15 MG No QD busPIRone HCl 15 MG Cozaar 25 MG Cozaar 25 MG No QD Cozaar 25 MG metFORMIN HCl 500 MG metFORMIN HCl 500 MG No metFORMIN HCl 500 MG Lancets - Lancets - No Lancets - Lansoprazol e 30 MG Lansoprazol e 30 MG No 1{capsu le_befo re_a_me al} QD Lansoprazo le 30 MG Gabapentin 300 MG Gabapentin 300 MG No 1{table t} QD Gabapentin 300 MG Crestor 20 mg Crestor 20 mg No QD Crestor 20 mg Citalopram Hydrobromid e 20 MG Citalopram Hydrobromid e 20 MG No 1{table t} QD Citalopram Hydrobromi de 20 MG busPIRone HCl 15 MG busPIRone HCl 15 MG No QD busPIRone HCl 15 MG Cozaar 25 MG Cozaar 25 MG No QD Cozaar 25 MG metFORMIN HCl 500 MG metFORMIN HCl 500 MG No metFORMIN HCl 500 MG Lancets - Lancets - No Lancets - Lansoprazol e 30 MG Lansoprazol e 30 MG No 1{capsu le_befo re_a_me al} QD Lansoprazo le 30 MG Gabapentin 300 MG Gabapentin 300 MG No 1{table t} QD Gabapentin 300 MG Crestor 20 mg Crestor 20 mg No QD Crestor 20 mg Citalopram Hydrobromid e 20 MG Citalopram Hydrobromid e 20 MG No 1{table t} QD Citalopram Hydrobromi de 20 MG busPIRone HCl 15 MG busPIRone HCl 15 MG No QD busPIRone HCl 15 MG Cozaar 25 MG Cozaar 25 MG No QD Cozaar 25 MG metFORMIN HCl 500 MG metFORMIN HCl 500 MG No metFORMIN HCl 500 MG Lancets - Lancets - No Lancets - Lansoprazol e 30 MG Lansoprazol e 30 MG No 1{capsu le_befo re_a_me al} QD Lansoprazo le 30 MG Gabapentin 300 MG Gabapentin 300 MG No 1{table t} QD Gabapentin 300 MG Crestor 20 mg Crestor 20 mg No QD Crestor 20 mg Gabapentin 300 MG Gabapentin 300 MG No 1{table t} QD Gabapentin 300 MG busPIRone HCl 15 MG busPIRone HCl 15 MG No QD busPIRone HCl 15 MG metFORMIN HCl 500 MG metFORMIN HCl 500 MG No metFORMIN HCl 500 MG Crestor 20 mg Crestor 20 mg No QD Crestor 20 mg D-Mannose 500 MG D-Mannose 500 MG No D-Mannose 500 MG Cozaar 25 MG Cozaar 25 MG No QD Cozaar 25 MG Lancets - Lancets - No Lancets - Famotidine 20 MG Famotidine 20 MG No 1{table t_at_be dtime_a s_neede d} QD Famotidine 20 MG Citalopram Hydrobromid e 20 MG Citalopram Hydrobromid e 20 MG No 1{table t} QD Citalopram Hydrobromi de 20 MG Lansoprazol e 30 MG Lansoprazol e 30 MG No 1{capsu le_befo re_a_me al} QD Lansoprazo le 30 MG Gabapentin 300 MG Gabapentin 300 MG No 1{table t} QD Gabapentin 300 MG busPIRone HCl 15 MG busPIRone HCl 15 MG No QD busPIRone HCl 15 MG metFORMIN HCl 500 MG metFORMIN HCl 500 MG No metFORMIN HCl 500 MG Crestor 20 mg Crestor 20 mg No QD Crestor 20 mg D-Mannose 500 MG D-Mannose 500 MG No D-Mannose 500 MG Cozaar 25 MG Cozaar 25 MG No QD Cozaar 25 MG Lancets - Lancets - No Lancets - Famotidine 20 MG Famotidine 20 MG No 1{table t_at_be dtime_a s_neede d} QD Famotidine 20 MG Citalopram Hydrobromid e 20 MG Citalopram Hydrobromid e 20 MG No 1{table t} QD Citalopram Hydrobromi de 20 MG Lansoprazol e 30 MG Lansoprazol e 30 MG No 1{capsu le_befo re_a_me al} QD Lansoprazo le 30 MG Citalopram Hydrobromid e 20 MG Citalopram Hydrobromid e 20 MG No 1{table t} QD Citalopram Hydrobromi de 20 MG busPIRone HCl 15 MG busPIRone HCl 15 MG No QD busPIRone HCl 15 MG Lancets - Lancets - No Lancets - Lansoprazol e 30 MG Lansoprazol e 30 MG No 1{capsu le_befo re_a_me al} QD Lansoprazo le 30 MG Crestor 20 mg Crestor 20 mg No QD Crestor 20 mg Gabapentin 300 MG Gabapentin 300 MG No 1{table t} QD Gabapentin 300 MG metFORMIN HCl 500 MG metFORMIN HCl 500 MG No metFORMIN HCl 500 MG Cozaar 25 MG Cozaar 25 MG No QD Cozaar 25 MG D-Mannose 500 MG D-Mannose 500 MG No D-Mannose 500 MG Famotidine 20 MG Famotidine 20 MG No 1{table t_at_be dtime_a s_neede d} QD Famotidine 20 MG Citalopram Hydrobromid e 20 MG Citalopram Hydrobromid e 20 MG No 1{table t} QD Citalopram Hydrobromi de 20 MG busPIRone HCl 15 MG busPIRone HCl 15 MG No QD busPIRone HCl 15 MG Lancets - Lancets - No Lancets - Lansoprazol e 30 MG Lansoprazol e 30 MG No 1{capsu le_befo re_a_me al} QD Lansoprazo le 30 MG Crestor 20 mg Crestor 20 mg No QD Crestor 20 mg Gabapentin 300 MG Gabapentin 300 MG No 1{table t} QD Gabapentin 300 MG metFORMIN HCl 500 MG metFORMIN HCl 500 MG No metFORMIN HCl 500 MG Cozaar 25 MG Cozaar 25 MG No QD Cozaar 25 MG D-Mannose 500 MG D-Mannose 500 MG No D-Mannose 500 MG Famotidine 20 MG Famotidine 20 MG No 1{table t_at_be dtime_a s_neede d} QD Famotidine 20 MG Citalopram Hydrobromid e 20 MG Citalopram Hydrobromid e 20 MG No 1{table t} QD Citalopram Hydrobromi de 20 MG busPIRone HCl 15 MG busPIRone HCl 15 MG No QD busPIRone HCl 15 MG Lancets - Lancets - No Lancets - Lansoprazol e 30 MG Lansoprazol e 30 MG No 1{capsu le_befo re_a_me al} QD Lansoprazo le 30 MG Crestor 20 mg Crestor 20 mg No QD Crestor 20 mg Gabapentin 300 MG Gabapentin 300 MG No 1{table t} QD Gabapentin 300 MG metFORMIN HCl 500 MG metFORMIN HCl 500 MG No metFORMIN HCl 500 MG Cozaar 25 MG Cozaar 25 MG No QD Cozaar 25 MG D-Mannose 500 MG D-Mannose 500 MG No D-Mannose 500 MG Famotidine 20 MG Famotidine 20 MG No 1{table t_at_be dtime_a s_neede d} QD Famotidine 20 MG Cozaar 25 MG Cozaar 25 MG No QD Cozaar 25 MG Super B Complex Super B Complex No Super B Complex Lansoprazol e 30 MG Lansoprazol e 30 MG No 1{capsu le_befo re_a_me al} QD Lansoprazo le 30 MG metFORMIN HCl 500 MG metFORMIN HCl 500 MG No metFORMIN HCl 500 MG Famotidine 20 MG Famotidine 20 MG No 1{table t_at_be dtime_a s_neede d} QD Famotidine 20 MG Crestor 20 mg Crestor 20 mg No QD Crestor 20 mg busPIRone HCl 15 MG busPIRone HCl 15 MG No QD busPIRone HCl 15 MG D-Mannose 500 MG D-Mannose 500 MG No D-Mannose 500 MG Citalopram Hydrobromid e 20 MG Citalopram Hydrobromid e 20 MG No 1{table t} QD Citalopram Hydrobromi de 20 MG Gabapentin 300 MG Gabapentin 300 MG No 1{table t} QD Gabapentin 300 MG Cozaar 25 MG Cozaar 25 MG No QD Cozaar 25 MG Super B Complex Super B Complex No Super B Complex Lansoprazol e 30 MG Lansoprazol e 30 MG No 1{capsu le_befo re_a_me al} QD Lansoprazo le 30 MG metFORMIN HCl 500 MG metFORMIN HCl 500 MG No metFORMIN HCl 500 MG Famotidine 20 MG Famotidine 20 MG No 1{table t_at_be dtime_a s_neede d} QD Famotidine 20 MG Crestor 20 mg Crestor 20 mg No QD Crestor 20 mg busPIRone HCl 15 MG busPIRone HCl 15 MG No QD busPIRone HCl 15 MG D-Mannose 500 MG D-Mannose 500 MG No D-Mannose 500 MG Citalopram Hydrobromid e 20 MG Citalopram Hydrobromid e 20 MG No 1{table t} QD Citalopram Hydrobromi de 20 MG Gabapentin 300 MG Gabapentin 300 MG No 1{table t} QD Gabapentin 300 MG Cozaar 25 MG Cozaar 25 MG No QD Cozaar 25 MG Super B Complex Super B Complex No Super B Complex Lansoprazol e 30 MG Lansoprazol e 30 MG No 1{capsu le_befo re_a_me al} QD Lansoprazo le 30 MG metFORMIN HCl 500 MG metFORMIN HCl 500 MG No metFORMIN HCl 500 MG Famotidine 20 MG Famotidine 20 MG No 1{table t_at_be dtime_a s_neede d} QD Famotidine 20 MG Crestor 20 mg Crestor 20 mg No QD Crestor 20 mg busPIRone HCl 15 MG busPIRone HCl 15 MG No QD busPIRone HCl 15 MG D-Mannose 500 MG D-Mannose 500 MG No D-Mannose 500 MG Citalopram Hydrobromid e 20 MG Citalopram Hydrobromid e 20 MG No 1{table t} QD Citalopram Hydrobromi de 20 MG Gabapentin 300 MG Gabapentin 300 MG No 1{table t} QD Gabapentin 300 MG Cozaar 25 MG Cozaar 25 MG No QD Cozaar 25 MG Super B Complex Super B Complex No Super B Complex Famotidine 20 MG Famotidine 20 MG No 1{table t_at_be dtime_a s_neede d} QD Famotidine 20 MG Lansoprazol e 30 MG Lansoprazol e 30 MG No 1{capsu le_befo re_a_me al} QD Lansoprazo le 30 MG Crestor 20 mg Crestor 20 mg No QD Crestor 20 mg busPIRone HCl 15 MG busPIRone HCl 15 MG No QD busPIRone HCl 15 MG D-Mannose 500 MG D-Mannose 500 MG No D-Mannose 500 MG Citalopram Hydrobromid e 20 MG Citalopram Hydrobromid e 20 MG No 1{table t} QD Citalopram Hydrobromi de 20 MG metFORMIN HCl 500 MG metFORMIN HCl 500 MG No metFORMIN HCl 500 MG Lansoprazol e 30 MG Lansoprazol e 30 MG No Lansoprazo le 30 MG Gabapentin 300 MG Gabapentin 300 MG No 1{table t} QD Gabapentin 300 MG Cozaar 25 MG Cozaar 25 MG No QD Cozaar 25 MG Super B Complex Super B Complex No Super B Complex Famotidine 20 MG Famotidine 20 MG No 1{table t_at_be dtime_a s_neede d} QD Famotidine 20 MG Immunizations Ordered Immunization Name Filled Immunization Name Date Status Comments Source Moderna COVID-19 Vaccine (Low Dose Booster) Moderna COVID-19 Vaccine (Low Dose Booster) 2021-05-03 15:03:00 Completed [facility] Moderna COVID-19 Vaccine (Low Dose Booster) Moderna COVID-19 Vaccine (Low Dose Booster) 2021-05-03 15:03:00 Completed [facility] Moderna COVID-19 Vaccine (Low Dose Booster) Moderna COVID-19 Vaccine (Low Dose Booster) 2021-05-03 15:03:00 Completed [facility] Moderna COVID-19 Vaccine (Low Dose Booster) Moderna COVID-19 Vaccine (Low Dose Booster) 2021-05-03 15:03:00 Completed [facility] Moderna COVID-19 Vaccine (Low Dose Booster) Moderna COVID-19 Vaccine (Low Dose Booster) 2021-05-03 15:03:00 Completed [facility] Moderna COVID-19 Vaccine (Low Dose Booster) Moderna COVID-19 Vaccine (Low Dose Booster) 2021-05-03 15:03:00 Completed [facility] Moderna COVID-19 Vaccine (Low Dose Booster) Moderna COVID-19 Vaccine (Low Dose Booster) 2021-05-03 15:03:00 Completed [facility] Moderna COVID-19 Vaccine (Low Dose Booster) Moderna COVID-19 Vaccine (Low Dose Booster) 2021-05-03 15:03:00 Completed [facility] Moderna COVID-19 Vaccine (Low Dose Booster) Moderna COVID-19 Vaccine (Low Dose Booster) 2021-05-03 15:03:00 Completed [facility] Moderna COVID-19 Vaccine (Low Dose Booster) Moderna COVID-19 Vaccine (Low Dose Booster) 2021-05-03 15:03:00 Completed [facility] Moderna COVID-19 Vaccine (Low Dose Booster) Moderna COVID-19 Vaccine (Low Dose Booster) 2021-05-03 15:03:00 Completed [facility] Moderna COVID-19 Vaccine (Low Dose Booster) Moderna COVID-19 Vaccine (Low Dose Booster) 2021-05-03 15:03:00 Completed [facility] Moderna COVID-19 Vaccine (Low Dose Booster) Moderna COVID-19 Vaccine (Low Dose Booster) 2021-05-03 15:03:00 Completed [facility] Moderna COVID-19 Vaccine (Low Dose Booster) Moderna COVID-19 Vaccine (Low Dose Booster) 2021-05-03 15:03:00 Completed [facility] Moderna COVID-19 Vaccine (Low Dose Booster) Moderna COVID-19 Vaccine (Low Dose Booster) 2021-05-03 15:03:00 Completed [facility] Moderna COVID-19 Vaccine (Low Dose Booster) Moderna COVID-19 Vaccine (Low Dose Booster) 2021-05-03 15:03:[address] [facility] Moderna COVID-19 Vaccine (Low Dose Booster) 2021-05-03 15:03:00 Completed [facility] Prevnar 13 (PCV13) Prevnar 13 (PCV13) 2021-03-23 09:02:00 Completed [facility] Prevnar 13 (PCV13) Prevnar 13 (PCV13) 2021-03-23 09:02:00 Completed [facility] Prevnar 13 (PCV13) Prevnar 13 (PCV13) 2021-03-23 09:02:00 Completed [facility] Prevnar 13 (PCV13) Prevnar 13 (PCV13) 2021-03-23 09:02:00 Completed [facility] Prevnar 13 (PCV13) Prevnar 13 (PCV13) 2021-03-23 09:02:00 Completed [facility] Prevnar 13 (PCV13) Prevnar 13 (PCV13) 2021-03-23 09:02:00 Completed [facility] Prevnar 13 (PCV13) Prevnar 13 (PCV13) 2021-03-23 09:02:00 Completed [facility] Prevnar 13 (PCV13) Prevnar 13 (PCV13) 2021-03-23 09:02:00 Completed [facility] Prevnar 13 (PCV13) Prevnar 13 (PCV13) 2021-03-23 09:02:00 Completed [facility] Prevnar 13 (PCV13) Prevnar 13 (PCV13) 2021-03-23 09:02:00 Completed [facility] Prevnar 13 (PCV13) Prevnar 13 (PCV13) 2021-03-23 09:02:00 Completed [facility] Prevnar 13 (PCV13) Prevnar 13 (PCV13) 2021-03-23 09:02:00 Completed [facility] Prevnar 13 (PCV13) Prevnar 13 (PCV13) 2021-03-23 09:02:00 Completed [facility] Prevnar 13 (PCV13) Prevnar 13 (PCV13) 2021-03-23 09:02:00 Completed [facility] Prevnar 13 (PCV13) Prevnar 13 (PCV13) 2021-03-23 09:02:00 Completed [facility] Prevnar 13 (PCV13) Prevnar 13 (PCV13) 2021-03-23 09:02:00 Completed [facility] Prevnar 13 (PCV13) Prevnar 13 (PCV13) 2021-03-23 09:02:00 Completed [facility] Prevnar 13 (PCV13) Prevnar 13 (PCV13) 2021-03-23 09:02:00 Completed [facility] Moderna COVID-19 Vaccine Moderna COVID-19 Vaccine 2020-09-14 15:04:00 Completed [facility] Moderna COVID-19 Vaccine Moderna COVID-19 Vaccine 2020-09-14 15:04:00 Completed [facility] Moderna COVID-19 Vaccine Moderna COVID-19 Vaccine 2020-09-14 15:04:00 Completed [facility] Moderna COVID-19 Vaccine Moderna COVID-19 Vaccine 2020-09-14 15:04:00 Completed [facility] Moderna COVID-19 Vaccine Moderna COVID-19 Vaccine 2020-09-14 15:04:00 Completed [facility] Moderna COVID-19 Vaccine Moderna COVID-19 Vaccine 2020-09-14 15:04:00 Completed [facility] Moderna COVID-19 Vaccine Moderna COVID-19 Vaccine 2020-09-14 15:04:00 Completed [facility] Moderna COVID-19 Vaccine Moderna COVID-19 Vaccine 2020-09-14 15:04:00 Completed [facility] Moderna COVID-19 Vaccine Moderna COVID-19 Vaccine 2020-09-14 15:04:00 Completed [facility] Moderna COVID-19 Vaccine Moderna COVID-19 Vaccine 2020-09-14 15:04:00 Completed [facility] Moderna COVID-19 Vaccine Moderna COVID-19 Vaccine 2020-09-14 15:04:00 Completed [facility] Moderna COVID-19 Vaccine Moderna COVID-19 Vaccine 2020-09-14 15:04:00 Completed [facility] Moderna COVID-19 Vaccine Moderna COVID-19 Vaccine 2020-09-14 15:04:00 Completed [facility] Moderna COVID-19 Vaccine Moderna COVID-19 Vaccine 2020-09-14 15:04:00 Completed [facility] Moderna COVID-19 Vaccine Moderna COVID-19 Vaccine 2020-09-14 15:04:00 Completed [facility] Moderna COVID-19 Vaccine Moderna COVID-19 Vaccine 2020-09-14 15:04:00 Completed [facility] Moderna COVID-19 Vaccine Moderna COVID-19 Vaccine 2020-09-14 15:04:00 Completed [facility] Moderna COVID-19 Vaccine Moderna COVID-19 Vaccine 2020-08-18 15:03:00 Completed [facility] Moderna COVID-19 Vaccine Moderna COVID-19 Vaccine 2020-08-18 15:03:00 Completed [facility] Moderna COVID-19 Vaccine Moderna COVID-19 Vaccine 2020-08-18 15:03:00 Completed [facility] Moderna COVID-19 Vaccine Moderna COVID-19 Vaccine 2020-08-18 15:03:00 Completed [facility] Moderna COVID-19 Vaccine Moderna COVID-19 Vaccine 2020-08-18 15:03:00 Completed [facility] Moderna COVID-19 Vaccine Moderna COVID-19 Vaccine 2020-08-18 15:03:00 Completed [facility] Moderna COVID-19 Vaccine Moderna COVID-19 Vaccine 2020-08-18 15:03:00 Completed [facility] Moderna COVID-19 Vaccine Moderna COVID-19 Vaccine 2020-08-18 15:03:00 Completed [facility] Moderna COVID-19 Vaccine Moderna COVID-19 Vaccine 2020-08-18 15:03:00 Completed [facility] Moderna COVID-19 Vaccine Moderna COVID-19 Vaccine 2020-08-18 15:03:00 Completed [facility] Moderna COVID-19 Vaccine Moderna COVID-19 Vaccine 2020-08-18 15:03:00 Completed [facility] Moderna COVID-19 Vaccine Moderna COVID-19 Vaccine 2020-08-18 15:03:00 Completed [facility] Moderna COVID-19 Vaccine Moderna COVID-19 Vaccine 2020-08-18 15:03:00 Completed [facility] Moderna COVID-19 Vaccine Moderna COVID-19 Vaccine 2020-08-18 15:03:00 Completed [facility] Moderna COVID-19 Vaccine Moderna COVID-19 Vaccine 2020-08-18 15:03:00 Completed [facility] Moderna COVID-19 Vaccine Moderna COVID-19 Vaccine 2020-08-18 15:03:00 Completed [facility] Moderna COVID-19 Vaccine Moderna COVID-19 Vaccine 2020-08-18 15:03:00 Completed [facility] FLUZONE HIGH DOSE OVER 65 FLUZONE HIGH DOSE OVER 65 2019-02-25 15:17:00 Completed [facility] FLUZONE HIGH DOSE OVER 65 FLUZONE HIGH DOSE OVER 65 2019-02-25 15:17:00 Completed [facility] FLUZONE HIGH DOSE OVER 65 FLUZONE HIGH DOSE OVER 65 2019-02-25 15:17:00 Completed [facility] FLUZONE HIGH DOSE OVER 65 FLUZONE HIGH DOSE OVER 65 2019-02-25 15:17:00 Completed [facility] FLUZONE HIGH DOSE OVER 65 FLUZONE HIGH DOSE OVER 65 2019-02-25 15:17:00 Completed [facility] FLUZONE HIGH DOSE OVER 65 FLUZONE HIGH DOSE OVER 65 2019-02-25 15:17:00 Completed [facility] FLUZONE HIGH DOSE OVER 65 FLUZONE HIGH DOSE OVER 65 2019-02-25 15:17:00 Completed [facility] FLUZONE HIGH DOSE OVER 65 FLUZONE HIGH DOSE OVER 65 2019-02-25 15:17:00 Completed [facility] FLUZONE HIGH DOSE OVER 65 FLUZONE HIGH DOSE OVER 65 2019-02-25 15:17:00 Completed [facility] FLUZONE HIGH DOSE OVER 65 FLUZONE HIGH DOSE OVER 65 2019-02-25 15:17:00 Completed [facility] FLUZONE HIGH DOSE OVER 65 FLUZONE HIGH DOSE OVER 65 2019-02-25 15:17:00 Completed [facility] FLUZONE HIGH DOSE OVER 65 FLUZONE HIGH DOSE OVER 65 2019-02-25 15:17:00 Completed [facility] FLUZONE HIGH DOSE OVER 65 FLUZONE HIGH DOSE OVER 65 2019-02-25 15:17:00 Completed [facility] FLUZONE HIGH DOSE OVER 65 FLUZONE HIGH DOSE OVER 65 2019-02-25 15:17:00 Completed [facility] FLUZONE HIGH DOSE OVER 65 FLUZONE HIGH DOSE OVER 65 2019-02-25 15:17:00 Completed [facility] FLUZONE HIGH DOSE OVER 65 FLUZONE HIGH DOSE OVER 65 2019-02-25 15:17:00 Completed [facility] FLUZONE HIGH DOSE OVER 65 FLUZONE HIGH DOSE OVER 65 2019-02-25 15:17:00 Completed [facility] FLUZONE HIGH DOSE OVER 65 FLUZONE HIGH DOSE OVER 65 2019-02-25 15:17:00 Completed [facility] FLUZONE HIGH DOSE OVER 65 FLUZONE HIGH DOSE OVER 65 2018-02-14 14:24:00 Completed [facility] FLUZONE HIGH DOSE OVER 65 FLUZONE HIGH DOSE OVER 65 2018-02-14 14:24:00 Completed [facility] FLUZONE HIGH DOSE OVER 65 FLUZONE HIGH DOSE OVER 65 2018-02-14 14:24:00 Completed [facility] FLUZONE HIGH DOSE OVER 65 FLUZONE HIGH DOSE OVER 65 2018-02-14 14:24:00 Completed [facility] FLUZONE HIGH DOSE OVER 65 FLUZONE HIGH DOSE OVER 65 2018-02-14 14:24:00 Completed [facility] FLUZONE HIGH DOSE OVER 65 FLUZONE HIGH DOSE OVER 65 2018-02-14 14:24:00 Completed [facility] FLUZONE HIGH DOSE OVER 65 FLUZONE HIGH DOSE OVER 65 2018-02-14 14:24:00 Completed [facility] FLUZONE HIGH DOSE OVER 65 FLUZONE HIGH DOSE OVER 65 2018-02-14 14:24:00 Completed [facility] FLUZONE HIGH DOSE OVER 65 FLUZONE HIGH DOSE OVER 65 2018-02-14 14:24:00 Completed [facility] FLUZONE HIGH DOSE OVER 65 FLUZONE HIGH DOSE OVER 65 2018-02-14 14:24:00 Completed [facility] FLUZONE HIGH DOSE OVER 65 FLUZONE HIGH DOSE OVER 65 2018-02-14 14:24:00 Completed [facility] FLUZONE HIGH DOSE OVER 65 FLUZONE HIGH DOSE OVER 65 2018-02-14 14:24:00 Completed [facility] FLUZONE HIGH DOSE OVER 65 FLUZONE HIGH DOSE OVER 65 2018-02-14 14:24:00 Completed [facility] FLUZONE HIGH DOSE OVER 65 FLUZONE HIGH DOSE OVER 65 2018-02-14 14:24:00 Completed [facility] FLUZONE HIGH DOSE OVER 65 FLUZONE HIGH DOSE OVER 65 2018-02-14 14:24:00 Completed [facility] FLUZONE HIGH DOSE OVER 65 FLUZONE HIGH DOSE OVER 65 2018-02-14 14:24:00 Completed [facility] FLUZONE HIGH DOSE OVER 65 FLUZONE HIGH DOSE OVER 65 2018-02-14 14:24:00 Completed [facility] FLUZONE HIGH DOSE OVER 65 FLUZONE HIGH DOSE OVER 65 2018-02-14 14:24:00 Completed [facility] Moderna COVID-19 Vaccine (Low Dose Booster) Moderna COVID-19 Vaccine (Low Dose Booster) Unknown Completed [facility] Moderna COVID-19 Vaccine Moderna COVID-19 Vaccine Unknown Completed [facility] Moderna COVID-19 Vaccine Moderna COVID-19 Vaccine Unknown Completed [facility] FLUZONE HIGH DOSE OVER 65 FLUZONE HIGH DOSE OVER 65 Unknown Completed [facility] FLUZONE HIGH DOSE OVER 65 FLUZONE HIGH DOSE OVER 65 Unknown Completed [facility] Prevnar 13 (PCV13) Prevnar 13 (PCV13) Unknown Completed [facility] Moderna COVID-19 Vaccine (Low Dose Booster) Moderna COVID-19 Vaccine (Low Dose Booster) Unknown Completed [facility] Moderna COVID-19 Vaccine Moderna COVID-19 Vaccine Unknown Completed [facility] Moderna COVID-19 Vaccine Moderna COVID-19 Vaccine Unknown Completed [facility] FLUZONE HIGH DOSE OVER 65 FLUZONE HIGH DOSE OVER 65 Unknown Completed [facility] FLUZONE HIGH DOSE OVER 65 FLUZONE HIGH DOSE OVER 65 Unknown Completed [facility] Prevnar 13 (PCV13) Prevnar 13 (PCV13) Unknown Completed [facility] MODERNA COVID-19 VACCINE (LOW DOSE BOOSTER) MODERNA COVID-19 VACCINE (LOW DOSE BOOSTER) Unknown Completed [facility] Moderna COVID-19 Vaccine Moderna COVID-19 Vaccine Unknown Completed [facility] Moderna COVID-19 Vaccine Moderna COVID-19 Vaccine Unknown Completed [facility] FLUZONE HIGH DOSE OVER 65 FLUZONE HIGH DOSE OVER 65 Unknown Completed [facility] FLUZONE HIGH DOSE OVER 65 FLUZONE HIGH DOSE OVER 65 Unknown Completed [facility] Prevnar 13 (PCV13) Prevnar 13 (PCV13) Unknown Completed [facility] MODERNA COVID-19 VACCINE (LOW DOSE BOOSTER) MODERNA COVID-19 VACCINE (LOW DOSE BOOSTER) Unknown Completed [facility] Moderna COVID-19 Vaccine Moderna COVID-19 Vaccine Unknown Completed [facility] Moderna COVID-19 Vaccine Moderna COVID-19 Vaccine Unknown Completed [facility] FLUZONE HIGH DOSE OVER 65 FLUZONE HIGH DOSE OVER 65 Unknown Completed [facility] FLUZONE HIGH DOSE OVER 65 FLUZONE HIGH DOSE OVER 65 Unknown Completed [facility] Prevnar 13 (PCV13) Prevnar 13 (PCV13) Unknown Completed [facility] MODERNA COVID-19 VACCINE (LOW DOSE BOOSTER) MODERNA COVID-19 VACCINE (LOW DOSE BOOSTER) Unknown Completed [facility] Moderna COVID-19 Vaccine Moderna COVID-19 Vaccine Unknown Completed [facility] Moderna COVID-19 Vaccine Moderna COVID-19 Vaccine Unknown Completed [facility] FLUZONE HIGH DOSE OVER 65 FLUZONE HIGH DOSE OVER 65 Unknown Completed [facility] FLUZONE HIGH DOSE OVER 65 FLUZONE HIGH DOSE OVER 65 Unknown Completed [facility] Prevnar 13 (PCV13) Prevnar 13 (PCV13) Unknown Completed [facility] MODERNA COVID-19 VACCINE (LOW DOSE BOOSTER) MODERNA COVID-19 VACCINE (LOW DOSE BOOSTER) Unknown Completed [facility] Moderna COVID-19 Vaccine Moderna COVID-19 Vaccine Unknown Completed [facility] Moderna COVID-19 Vaccine Moderna COVID-19 Vaccine Unknown Completed [facility] FLUZONE HIGH DOSE OVER 65 FLUZONE HIGH DOSE OVER 65 Unknown Completed [facility] FLUZONE HIGH DOSE OVER 65 FLUZONE HIGH DOSE OVER 65 Unknown Completed [facility] Prevnar 13 (PCV13) Prevnar 13 (PCV13) Unknown Completed [facility] MODERNA COVID-19 VACCINE (LOW DOSE BOOSTER) MODERNA COVID-19 VACCINE (LOW DOSE BOOSTER) Unknown Completed [facility] Moderna COVID-19 Vaccine Moderna COVID-19 Vaccine Unknown Completed [facility] Moderna COVID-19 Vaccine Moderna COVID-19 Vaccine Unknown Completed [facility] FLUZONE HIGH DOSE OVER 65 FLUZONE HIGH DOSE OVER 65 Unknown Completed [facility] FLUZONE HIGH DOSE OVER 65 FLUZONE HIGH DOSE OVER 65 Unknown Completed [facility] Prevnar 13 (PCV13) Prevnar 13 (PCV13) Unknown Completed [facility] Moderna COVID-19 Vaccine (Low Dose Booster) Moderna COVID-19 Vaccine (Low Dose Booster) Unknown Completed [facility] Moderna COVID-19 Vaccine Moderna COVID-19 Vaccine Unknown Completed [facility] Moderna COVID-19 Vaccine Moderna COVID-19 Vaccine Unknown Completed [facility] FLUZONE HIGH DOSE OVER 65 FLUZONE HIGH DOSE OVER 65 Unknown Completed [facility] FLUZONE HIGH DOSE OVER 65 FLUZONE HIGH DOSE OVER 65 Unknown Completed [facility] Prevnar 13 (PCV13) Prevnar 13 (PCV13) Unknown Completed [facility] Moderna COVID-19 Vaccine (Low Dose Booster) Moderna COVID-19 Vaccine (Low Dose Booster) Unknown Completed [facility] Moderna COVID-19 Vaccine Moderna COVID-19 Vaccine Unknown Completed [facility] Moderna COVID-19 Vaccine Moderna COVID-19 Vaccine Unknown Completed [facility] FLUZONE HIGH DOSE OVER 65 FLUZONE HIGH DOSE OVER 65 Unknown Completed [facility] FLUZONE HIGH DOSE OVER 65 FLUZONE HIGH DOSE OVER 65 Unknown Completed [facility] Prevnar 13 (PCV13) Prevnar 13 (PCV13) Unknown Completed [facility] Moderna COVID-19 Vaccine (Low Dose Booster) Moderna COVID-19 Vaccine (Low Dose Booster) Unknown Completed [facility] Moderna COVID-19 Vaccine Moderna COVID-19 Vaccine Unknown Completed [facility] Moderna COVID-19 Vaccine Moderna COVID-19 Vaccine Unknown Completed [facility] FLUZONE HIGH DOSE OVER 65 FLUZONE HIGH DOSE OVER 65 Unknown Completed [facility] FLUZONE HIGH DOSE OVER 65 FLUZONE HIGH DOSE OVER 65 Unknown Completed [facility] Prevnar 13 (PCV13) Prevnar 13 (PCV13) Unknown Completed [facility] Moderna COVID-19 Vaccine (Low Dose Booster) Moderna COVID-19 Vaccine (Low Dose Booster) Unknown Completed [facility] Moderna COVID-19 Vaccine Moderna COVID-19 Vaccine Unknown Completed [facility] Moderna COVID-19 Vaccine Moderna COVID-19 Vaccine Unknown Completed [facility] FLUZONE HIGH DOSE OVER 65 FLUZONE HIGH DOSE OVER 65 Unknown Completed [facility] FLUZONE HIGH DOSE OVER 65 FLUZONE HIGH DOSE OVER 65 Unknown Completed [facility] Prevnar 13 (PCV13) Prevnar 13 (PCV13) Unknown Completed [facility] Moderna COVID-19 Vaccine (Low Dose Booster) Moderna COVID-19 Vaccine (Low Dose Booster) Unknown Completed [facility] Moderna COVID-19 Vaccine Moderna COVID-19 Vaccine Unknown Completed [facility] Moderna COVID-19 Vaccine Moderna COVID-19 Vaccine Unknown Completed [facility] FLUZONE HIGH DOSE OVER 65 FLUZONE HIGH DOSE OVER 65 Unknown Completed [facility] FLUZONE HIGH DOSE OVER 65 FLUZONE HIGH DOSE OVER 65 Unknown Completed [facility] Prevnar 13 (PCV13) Prevnar 13 (PCV13) Unknown Completed [facility] Moderna COVID-19 Vaccine (Low Dose Booster) Moderna COVID-19 Vaccine (Low Dose Booster) Unknown Completed [facility] Moderna COVID-19 Vaccine Moderna COVID-19 Vaccine Unknown Completed [facility] Moderna COVID-19 Vaccine Moderna COVID-19 Vaccine Unknown Completed [facility] FLUZONE HIGH DOSE OVER 65 FLUZONE HIGH DOSE OVER 65 Unknown Completed [facility] FLUZONE HIGH DOSE OVER 65 FLUZONE HIGH DOSE OVER 65 Unknown Completed [facility] Prevnar 13 (PCV13) Prevnar 13 (PCV13) Unknown Completed [facility] Moderna COVID-19 Vaccine (Low Dose Booster) Moderna COVID-19 Vaccine (Low Dose Booster) Unknown Completed [facility] Moderna COVID-19 Vaccine Moderna COVID-19 Vaccine Unknown Completed [facility] Moderna COVID-19 Vaccine Moderna COVID-19 Vaccine Unknown Completed [facility] FLUZONE HIGH DOSE OVER 65 FLUZONE HIGH DOSE OVER 65 Unknown Completed [facility] FLUZONE HIGH DOSE OVER 65 FLUZONE HIGH DOSE OVER 65 Unknown Completed [facility] Prevnar 13 (PCV13) Prevnar 13 (PCV13) Unknown Completed [facility] Moderna COVID-19 Vaccine (Low Dose Booster) Moderna COVID-19 Vaccine (Low Dose Booster) Unknown Completed [facility] Moderna COVID-19 Vaccine Moderna COVID-19 Vaccine Unknown Completed [facility] Moderna COVID-19 Vaccine Moderna COVID-19 Vaccine Unknown Completed [facility] FLUZONE HIGH DOSE OVER 65 FLUZONE HIGH DOSE OVER 65 Unknown Completed [facility] FLUZONE HIGH DOSE OVER 65 FLUZONE HIGH DOSE OVER 65 Unknown Completed [facility] Prevnar 13 (PCV13) Prevnar 13 (PCV13) Unknown Completed [facility] Moderna COVID-19 Vaccine (Low Dose Booster) Moderna COVID-19 Vaccine (Low Dose Booster) Unknown Completed [facility] Moderna COVID-19 Vaccine Moderna COVID-19 Vaccine Unknown Completed [facility] Moderna COVID-19 Vaccine Moderna COVID-19 Vaccine Unknown Completed [facility] FLUZONE HIGH DOSE OVER 65 FLUZONE HIGH DOSE OVER 65 Unknown Completed [facility] FLUZONE HIGH DOSE OVER 65 FLUZONE HIGH DOSE OVER 65 Unknown Completed [facility] Prevnar 13 (PCV13) Prevnar 13 (PCV13) Unknown Completed [facility] Moderna COVID-19 Vaccine (Low Dose Booster) Moderna COVID-19 Vaccine (Low Dose Booster) Unknown Completed [facility] Moderna COVID-19 Vaccine Moderna COVID-19 Vaccine Unknown Completed [facility] Moderna COVID-19 Vaccine Moderna COVID-19 Vaccine Unknown Completed [facility] FLUZONE HIGH DOSE OVER 65 FLUZONE HIGH DOSE OVER 65 Unknown Completed [facility] FLUZONE HIGH DOSE OVER 65 FLUZONE HIGH DOSE OVER 65 Unknown Completed [facility] Prevnar 13 (PCV13) Prevnar 13 (PCV13) Unknown Completed [facility] Moderna COVID-19 Vaccine (Low Dose Booster) Moderna COVID-19 Vaccine (Low Dose Booster) Unknown Completed [facility] Moderna COVID-19 Vaccine Moderna COVID-19 Vaccine Unknown Completed [facility] Moderna COVID-19 Vaccine Moderna COVID-19 Vaccine Unknown Completed [facility] FLUZONE HIGH DOSE OVER 65 FLUZONE HIGH DOSE OVER 65 Unknown Completed [facility] FLUZONE HIGH DOSE OVER 65 FLUZONE HIGH DOSE OVER 65 Unknown Completed [facility] Prevnar 13 (PCV13) Prevnar 13 (PCV13) Unknown Completed [facility] Moderna COVID-19 Vaccine (Low Dose Booster) Moderna COVID-19 Vaccine (Low Dose Booster) Unknown Completed [facility] Moderna COVID-19 Vaccine Moderna COVID-19 Vaccine Unknown Completed [facility] Moderna COVID-19 Vaccine Moderna COVID-19 Vaccine Unknown Completed [facility] FLUZONE HIGH DOSE OVER 65 FLUZONE HIGH DOSE OVER 65 Unknown Completed [facility] FLUZONE HIGH DOSE OVER 65 FLUZONE HIGH DOSE OVER 65 Unknown Completed [facility] Prevnar 13 (PCV13) Prevnar 13 (PCV13) Unknown Completed [facility] Moderna COVID-19 Vaccine (Low Dose Booster) Moderna COVID-19 Vaccine (Low Dose Booster) Unknown Completed [facility] Moderna COVID-19 Vaccine Moderna COVID-19 Vaccine Unknown Completed [facility] Moderna COVID-19 Vaccine Moderna COVID-19 Vaccine Unknown Completed [facility] FLUZONE HIGH DOSE OVER 65 FLUZONE HIGH DOSE OVER 65 Unknown Completed [facility] FLUZONE HIGH DOSE OVER 65 FLUZONE HIGH DOSE OVER 65 Unknown Completed [facility] Prevnar 13 (PCV13) Prevnar 13 (PCV13) Unknown Completed [facility] Vital Signs Vital Name Observation Time Observation Value Comments S ource height 2023-08-20 15:30:00 64 [in_i] Commo n [facility] weight 2023-08-20 15:30:00 160.8 [lb_av] Co mmon [facility] temperature 2023-08-20 15:30:00 97.7 [degF] Com mon [facility] bmi 2023-08-20 15:30:00 27.6 kg/m2 Commo n [facility] oximetry 2023-08-20 15:30:00 96 % Commo n [facility] respiratory rate 2023-08-20 15:30:00 18 /min Common [facility] blood pressure systolic 2023-08-20 15:30:00 143 mm[Hg[facility] diastolic 2023-08-20 15:30:00 69 mm[Hg] [facility] height 2023-06-12 10:10:00 64 [in_i] Commo n [facility] weight 2023-06-12 10:10:00 175 [lb_av] Comm on [facility] temperature 2023-06-12 10:10:00 98 [degF] Comm on [facility] bmi 2023-06-12 10:10:00 30.04 kg/m2 Comm on [facility] blood pressure systolic 2023-06-12 10:10:00 110 mm[Hg] [facility] blood pressure diastolic 2023-06-12 10:10:00 60 mm[Hg] Common [facility] height 2023-05-16 09:30:00 64 [in_i] Commo n [facility] weight 2023-05-16 09:30:00 162.2 [lb_av] Co mmon [facility] temperature 2023-05-16 09:30:00 98.8 [degF] Com mon [facility] bmi 2023-05-16 09:30:00 27.84 kg/m2 Comm on [facility] oximetry 2023-05-16 09:30:00 97 % Commo n [facility] respiratory rate 2023-05-16 09:30:00 16 /min Common [facility] blood pressure systolic 2023-05-16 09:30:00 103 mm[Hg] [facility] blood pressure diastolic 2023-05-16 09:30:00 58 mm[Hg] Common [facility] height 2023-04-17 15:45:00 64 [in_i] Commo n [facility] weight 2023-04-17 15:45:00 161.4 [lb_av] Co [facility] temperature 2023-04-17 15:45:00 97.6 [degF] Com mon [facility] bmi 2023-04-17 15:45:00 27.7 kg/m2 Commo n [facility] oximetry 2023-04-17 15:45:00 99 % Commo n [facility] respiratory rate 2023-04-17 15:45:00 18 /min [facility] blood pressure systolic 2023-04-17 15:45:00 135 mm[Hg] Common [facility] blood pressure diastolic 2023-04-17 15:45:00 67 mm[Hg] [facility] height 2023-02-01 10:40:00 64 [in_i] Commo n [facility] weight 2023-02-01 10:40:00 164.0 [lb_av] Co on [facility] temperature 2023-02-01 10:40:00 97.0 [degF] Com [facility] bmi 2023-02-01 10:40:00 28.15 kg/m2 Comm on [facility] oximetry 2023-02-01 10:40:00 97 % Commo n [facility] respiratory rate 2023-02-01 10:40:00 18 /min Common [facility] blood pressure systolic 2023-02-01 10:40:00 126 mm[Hg] [facility] blood pressure diastolic 2023-02-01 10:40:00 68 mm[Hg] Common [facility] height 2023-02-01 10:30:00 64 [in_i] Commo n [facility] weight 2023-02-01 10:30:00 164.0 [lb_av] Co mmon [facility] temperature 2023-02-01 10:30:00 97.0 [degF] Com [facility] bmi 2023-02-01 10:30:00 28.15 kg/m2 Comm on [facility] oximetry 2023-02-01 10:30:00 97 % Commo n [facility] respiratory rate 2023-02-01 10:30:00 18 /min Common [facility] blood pressure systolic 2023-02-01 10:30:00 126 mm[Hg] [facility] blood pressure diastolic 2023-02-01 10:30:00 68 mm[Hg] Common [facility] height 2022-08-17 09:00:00 64 [in_i] Commo n [facility] weight 2022-08-17 09:00:00 161.6 [lb_av] Co [facility] temperature 2022-08-17 09:00:00 97.2 [degF] Com [facility] bmi 2022-08-17 09:00:00 27.74 kg/m2 Comm on [facility] oximetry 2022-08-17 09:00:00 97 % Commo n [facility] respiratory rate 2022-08-17 09:00:00 17 /min Common [facility] blood pressure systolic 2022-08-17 09:00:00 132 mm[Hg] Common [facility] blood pressure diastolic 2022-08-17 09:00:00 65 mm[Hg] [facility] height 2022-05-04 16:20:00 64 [in_i] Commo n [facility] weight 2022-05-04 16:20:00 158.0 [lb_av] Co [facility] temperature 2022-05-04 16:20:00 97.3 [degF] Com [facility] bmi 2022-05-04 16:20:00 27.12 kg/m2 Comm on [facility] oximetry 2022-05-04 16:20:00 96 % Commo n [facility] respiratory rate 2022-05-04 16:20:00 16 /min Common [facility] blood pressure systolic 2022-05-04 16:20:00 100 mm[Hg] [facility] blood pressure diastolic 2022-05-04 16:20:00 68 mm[Hg] Common [facility] height 2022-02-02 15:20:00 66 [in_i] Commo n [facility] weight 2022-02-02 15:20:00 164.6 [lb_av] Co [facility] temperature 2022-02-02 15:20:00 97.5 [degF] Com [facility] bmi 2022-02-02 15:20:00 26.56 kg/m2 Comm on [facility] oximetry 2022-02-02 15:20:00 95 % Commo n [facility] respiratory rate 2022-02-02 15:20:00 15 /min [facility] blood pressure systolic 2022-02-02 15:20:00 112 mm[Hg] [facility] blood pressure diastolic 2022-02-02 15:20:00 66 mm[Hg] [facility] height 2022-02-02 14:20:00 66 [in_i] Commo n [facility] weight 2022-02-02 14:20:00 164.6 [lb_av] Co [facility] temperature 2022-02-02 14:20:00 97.5 [degF] Com [facility] bmi 2022-02-02 14:20:00 26.56 kg/m2 Comm on [facility] oximetry 2022-02-02 14:20:00 95 % Commo n [facility] respiratory rate 2022-02-02 14:20:00 15 /min Common [facility] blood pressure systolic 2022-02-02 14:20:00 112 mm[Hg] [facility] blood pressure diastolic 2022-02-02 14:20:00 66 mm[Hg] Common [facility] height 2021-11-14 09:40:00 66 [in_i] Commo n [facility] weight 2021-11-14 09:40:00 172 [lb_av] Comm on [facility] temperature 2021-11-14 09:40:00 97.7 [degF] Com [facility] bmi 2021-11-14 09:40:00 27.76 kg/m2 Comm on [facility] height 2021-10-24 16:40:00 66 [in_i] Commo n [facility] weight 2021-10-24 16:40:00 122 [lb_av] Comm on [facility] temperature 2021-10-24 16:40:00 97.2 [degF] Com [facility] bmi 2021-10-24 16:40:00 19.69 kg/m2 Comm on [facility] height 2021-10-03 11:00:00 66.00 [in_i] Com [facility] weight 2021-10-03 11:00:00 122.2 [lb_av] Co mmon [facility] temperature 2021-10-03 11:00:00 97.2 [degF] Com [facility] bmi 2021-10-03 11:00:00 19.72 kg/m2 Comm on [facility] oximetry 2021-10-03 11:00:00 97 % Commo n [facility] respiratory rate 2021-10-03 11:00:00 16 /min Common [facility] blood pressure systolic 2021-10-03 11:00:00 120 mm[Hg] [facility] blood pressure diastolic 2021-10-03 11:00:00 74 mm[Hg] Common [facility] height 2021-07-04 14:40:00 66.00 [in_i] Com [facility] weight 2021-07-04 14:40:00 173 [lb_av] Comm on [facility] temperature 2021-07-04 14:40:00 97.8 [degF] Com [facility] bmi 2021-07-04 14:40:00 27.92 kg/m2 Comm on [facility] oximetry 2021-07-04 14:40:00 95 % Commo n [facility] respiratory rate 2021-07-04 14:40:00 16 /min [facility] blood pressure systolic 2021-07-04 14:40:00 110 mm[Hg] Common [facility] blood pressure diastolic 2021-07-04 14:40:00 62 mm[Hg] [facility] height 2021-04-17 08:40:00 66.00 [in_i] Com [facility] weight 2021-04-17 08:40:00 176 [lb_av] Comm on [facility] bmi 2021-04-17 08:40:00 28.4 kg/m2 Commo n [facility] blood pressure systolic 2021-04-17 08:40:00 115 mm[Hg] [facility] blood pressure diastolic 2021-04-17 08:40:00 75 mm[Hg] [facility] Procedures Procedure Date / Time Performed Performing Clinicia n Source PVR 2023-04-26 00:00:00 Common S [facility] PVR 2023-04-17 00:00:00 Common S [facility] Encounters Start Date/Time End Date/Time Encounter Type Admission Type Attending [facility] Care Department Encounter ID Source 2023-06-10 15:03:00 Outpatient Fabio Lucas [facility] ST[facility] [id number] [facility] 2022-12-14 14:16:00 Outpatient Fabio Lucas [facility] ST[facility] [id number] [facility] 2022-08-10 09:58:00 Outpatient Fabio Lucas [facility] ST[facility] [id number] [facility] 2022-06-14 13:29:00 Outpatient MAR, Na STLMLC ST[facility] [id number] [facility] 2022-05-02 08:37:00 Outpatient Mar, Na [facility]MLC ST[facility] [id number] [facility] 2022-04-12 16:21:00 Outpatient Mar, Na [facility]ML[facility] ST[facility] [id number] [facility] 2022-01-31 09:28:00 Outpatient Mar, Na [facility] ST[facility] [id number] [facility] 2021-11-08 11:15:01 Outpatient Mar, Na [facility] ST[facility] [id number] [facility] 2021-09-29 09:09:02 Outpatient Mar, Na [facility] ST[facility] [id number] [facility] 2021-07-03 14:46:00 Outpatient Mar, Na [facility] ST[facility] [id number] [facility] 2021-06-21 14:22:28 Outpatient Mar, Na [facility] ST[facility] [id number] [facility] 2021-06-21 13:42:15 Outpatient Mar, Na [facility] ST[facility] [id number] [facility] 2021-06-21 13:29:49 Outpatient Mar, Na [facility] ST[facility] [id number] [facility] 2021-06-21 13:29:15 Outpatient Mar, Na [facility] ST[facility] [id number] [facility] 2021-06-21 13:13:13 Outpatient Mar, Na [facility] ST[facility] [id number] [facility] 2021-06-21 13:12:38 Outpatient Mar, Na [facility] ST[facility] [id number] [facility] 2021-06-21 12:39:38 Outpatient Mar, Na [facility] ST[facility] [id number] [facility] 2021-06-21 12:38:55 Outpatient Mar, Na [facility] ST[facility] [id number] [facility] 2021-06-21 12:05:32 Outpatient Mar, Na [facility] ST[facility] [id number] [facility] 2021-06-21 12:05:08 Outpatient Mar, Na [facility] ST[facility] [id number] [facility] 2021-06-21 12:04:34 Outpatient Mar, Na [facility] ST[facility] [id number] [facility] 2021-06-21 12:03:18 Outpatient Alphonso Rosadoen [facility] ST[facility] [id number] [facility] 2021-06-21 11:49:01 Outpatient MillenderAlphonsoen STLMLC ST[facility] [id number] [facility] 2021-06-21 11:48:17 Outpatient ArashenderAlphonsoen STLMLC ST[facility] [id number] [facility] 2021-06-21 11:40:18 Outpatient ArashenderAlphonsoen STLMLC ST[facility]C [id number] [facility] 2023-09-11 00:00:00 2023-09-11 00:00:00 (TEL) STLMLC ST[facility]C [id number] [facility] 2023-08-26 00:00:00 2023-08-26 00:00:00 (TEL) [facility]MLC ST[facility] [id number] [facility] 2023-08-26 00:00:00 2023-08-26 00:00:00 (TEL) ST[facility]C ST[facility] [id number] [facility] 2023-08-20 00:00:00 2023-08-20 00:00:00 OFFICE VISIT ESTAB PT LEVEL 3 [facility] ST[facility] [id number] [facility] 2023-06-12 00:00:00 2023-06-12 00:00:00 OFFICE VISIT ESTAB PT LEVEL 4 [facility] [id number] [facility] 2023-05-24 00:00:00 2023-05-24 00:00:00 (TEL) ST[facility]C ST[facility] [id number] [facility] 2023-05-16 00:00:00 2023-05-16 00:00:00 OFFICE VISIT ESTAB PT LEVEL 4 [facility] [id number] [facility] [facility] 2023-05-03 00:00:00 2023-05-03 00:00:00 (TEL) STLMLC STLMLC [id number] [facility] 2023-04-26 00:00:00 2023-04-26 00:00:00 (NV) Nurse Visit STLMLC STLMLC [id number] [facility] 2023-04-25 00:00:00 2023-04-25 00:00:00 (TEL) STLMLC STLMLC [id number] [facility] 2023-04-17 00:00:00 2023-04-17 00:00:00 OFFICE VISIT NEW PT LEVEL 3 STLMLC STLMLC [id number] [facility] 2023-02-01 00:00:00 2023-02-01 00:00:00 OFFICE VISIT ESTAB PT LEVEL 4 STLMLC STLMLC [id number] [facility] 2023-02-01 00:00:00 2023-02-01 00:00:00 SUB ANNUAL [facility] WELLNESS VISIT STLMLC STLMLC [id number] [facility] 2023-01-25 00:00:00 2023-01-25 00:00:00 (TEL) STLMLC STLMLC [id number] [facility] 2022-12-20 00:00:00 2022-12-20 00:00:00 (TEL) STLMLC STLMLC [id number] [facility] 2022-12-14 00:00:00 2022-12-14 00:00:00 (TEL) STLMLC STLMLC [id number] [facility] 2022-10-09 00:00:00 2022-10-09 00:00:00 (TEL) STLMLC STLMLC [id number] [facility] 2022-09-27 00:00:00 2022-09-27 00:00:00 (TEL) STLMLC STLMLC [id number] [facility] 2022-08-17 00:00:00 2022-08-17 00:00:00 OFFICE VISIT ESTAB PT LEVEL 4 STLMLC STLMLC [id number] [facility] 2022-08-10 00:00:00 2022-08-10 00:00:00 (TEL) STLMLC STLMLC [id number] [facility] 2022-05-04 00:00:00 2022-05-04 00:00:00 (TEL) STLMLC STLMLC [id number] [facility] 2022-05-04 00:00:00 2022-05-04 00:00:00 OFFICE VISIT EST PT LEVEL 3 STLMLC STLMLC [id number] [facility] 2022-04-26 00:00:00 2022-04-26 00:00:00 (TEL) STLMLC STLMLC [id number] [facility] 2022-04-26 00:00:00 2022-04-26 00:00:00 OL DIG E/M SVC 11-20 MIN STLMLC STLMLC [id number] [facility] 2022-04-11 00:00:00 2022-04-11 00:00:00 (TEL) STLMLC STLMLC [id number] [facility] 2022-02-02 00:00:00 2022-02-02 00:00:00 SUB ANNUAL M[facility] WELLNESS VISIT STLMLC STLMLC [id number] [facility] 2022-02-02 00:00:00 2022-02-02 00:00:00 OFFICE VISIT EST PT LEVEL 3 STLMLC STLMLC [id number] [facility] 2021 00:00:00 2021 00:00:00 (TEL) STLMLC STLMLC [id number] [facility] 2021-11-14 00:00:00 2021-11-14 00:00:00 OFFICE VISIT ESTAB PT LEVEL 1 STLMLC STLMLC [id number] [facility] 2021-11-08 00:00:00 2021-11-08 00:00:00 (TEL) STLMLC STLMLC [id number] [facility] 2021-11-08 00:00:00 2021-11-08 00:00:00 OL DIG E/M SVC 11-20 MIN STLMLC STLMLC [id number] [facility] 2021-10-24 00:00:00 2021-10-24 00:00:00 (TEL) STLMLC STLMLC [id number] [facility] 2021-10-24 00:00:00 2021-10-24 00:00:00 OFFICE VISIT EST PT LEVEL 3 STLMLC STLMLC [id number] [facility] 2021-10-03 00:00:00 2021-10-03 00:00:00 OFFICE VISIT ESTAB PT LEVEL 4 STLMLC STLMLC [id number] [facility] 2021-07-04 00:00:00 2021-07-04 00:00:00 OFFICE VISIT ESTAB PT LEVEL 4 STLMLC STLMLC [id number] [facility] 2021-05-11 00:00:00 2021-05-11 00:00:00 (TEL) STLMLC STLMLC [id number] [facility] 2021-05-03 00:00:00 2021-05-03 00:00:00 (COVID Inj) COVID Injection STLMLC STLMLC [id number] [facility] 2021-04-17 00:00:00 2021-04-17 00:00:00 OL DIG E/M SVC 11-20 MIN STLMLC STLMLC [id number] [facility] 2021-01-17 00:00:00 2021-01-17 00:00:00 Outpatient STLMLC STLMLC [id number] [facility] 2020-12-28 00:00:00 2020-12-28 00:00:00 Outpatient STLMLC STLMLC [id number] [facility] 2020-12-19 00:00:00 2020-12-19 00:00:00 Outpatient STLMLC STLMLC [id number] [facility] 2020-12-16 00:00:00 2020-12-16 00:00:00 Outpatient STLMLC STLMLC [id number] [facility] 2020-12-08 00:00:00 2020-12-08 00:00:00 Outpatient STLMLC STLMLC [id number] [facility] 2020-11-20 00:00:00 2020-11-20 00:00:00 Outpatient STLMLC STLMLC [id number] [facility] 2020-11-04 00:00:00 2020-11-04 00:00:00 Outpatient STLMLC STLMLC [id number] [facility] 2020-08-05 00:00:00 2020-08-05 00:00:00 Outpatient STLMLC STLMLC [id number] [facility] 2020-04-19 00:00:00 2020-04-19 00:00:00 Outpatient STLMLC STLMLC [id number] [facility] 2020-04-11 00:00:00 2020-04-11 00:00:00 Outpatient STLMLC STLMLC [id number] [facility] 2020-02-18 00:00:00 2020-02-18 00:00:00 Outpatient STLMLC STLMLC [id number] [facility] Results Test Description Test Time Test Comments Results Result Comments Source CYTOLOGY, URINE W/REFL FISH 00:00:00 CLINICAL INFORMATIONPATHOLOGISTREPORT NOTESSCREENER
--- NOTE | 2023-09-24 09:15 | RAD REPORT ---
EXAM DESCRIPTION: US - Abdomen Exam Limited - 09/24/2023 8:29 am CLINICAL HISTORY: Abdominal pain. COMPARISON: None. FINDINGS: Cholecystectomy. The biliary tree is normal caliber. IMPRESSION: Cholecystectomy without visualization of an abnormality
[2023-09-24 09:46] LABS: Specific Gravity 1.006 (1.005-1.030); Sqamous Epithelial None Seen /HPF (None Seen); Urine Bacteria None Seen /HPF (<20); Urine Bilirubin NEGATIVE (Negative); Urine Blood 1+ (Negative); Urine Clarity Clear (Clear); Urine Color Colorless (Yellow); Urine Culture Reflex Order NOT NEEDED; Urine Glucose NEGATIVE (Negative); Urine Ketones NEGATIVE (Negative); Urine Microscopic Reflex YN ORDER UMIC; Urine Nitrite NEGATIVE (Negative); Urine Protein NEGATIVE (Negative); Urine RBC <5 /HPF (None Seen); Urine Urobilinogen Normal (Normal); Urine WBC <5 /HPF (<5); Urine pH 6.5 (5.0-7.0)
[2023-09-24 09:48] LABS: Absolute Basophils 0.1 K/uL (0-0.5); Absolute Eosinophils 0.2 K/uL (0-0.5); Absolute Lymphocytes (CBC) 2.5 K/uL (0.7-4.9); Absolute Monocytes 1.2 K/uL (0.1-1.3); Absolute Neutrophil 7.2 K/uL (1.8-8.0); Basophils % 0.5 % (0-1.3); Eosinophils % 1.7 % (0-4.4); Hematocrit 38.6 % (36.0-45.0); Hemoglobin 12.5 g/dL (12.0-15.0); Lymphocytes % 22.5 % (15.3-44.8); MCH 28.6 pg (27.0-35.0); MCHC 32.3 g/dL (32.0-36.0); MCV 88.5 fL (80-100); MPV 9.7 fL (7.6-11.3); Monocytes % 10.4 % (3.3-12.3); Neutrophils % 64.9 % (41.7-73.7); Platelets 224 thou/uL (152-406); RBC Red Blood Cell Count 4.37 M/uL (3.86-4.86); Red Cell Distribution Width 13.4 % (12.1-15.2)
[2023-09-24 10:00] LABS: Albumin 3.7 g/dL (3.4-5.0); Albumin/Globulin Ratio 0.9 (1.1-1.8); Anion Gap 8.9 mEq/L (5.0-15.0); Bilirubin Total 0.7 mg/dL (0.2-1.0); Globulin 4.1 g/dL (2.3-3.5); Potassium 3.9 mEq/L (3.5-5.1); Protein, Total 7.8 g/dL (6.4-8.2)
--- NOTE | 2023-09-24 10:34 | RAD REPORT ---
EXAM DESCRIPTION: CT - Abdomen Pelvis W Contrast - 09/24/2023 10:05 am CLINICAL HISTORY: Abdominal pain COMPARISON: 2022 TECHNIQUE: Computed axial tomography of the abdomen pelvis was obtained. 100 cc Isovue-300 was admin istered intravenously. Oral contrast was not requested which limits evaluation of bowel and appendix All CT scans are performed using dose optimization technique as appropriate and may include automated exposure control or mA/KV adjustment according to patient size. FINDINGS: A cholecystectomy. The liver, spleen, pancreas, adrenal and kidneys appear unremarkable. Extrarenal pelves are present There is no evidence of diverticulitis. Hysterectomy. No adnexal mass A small umbilical hernia. Spondylosis lumbar spine. Atherosclerosis IMPRESSION: No acute abnormality is displayed.
--- NOTE | 2023-09-24 10:46 | ER ---
Nurse's Notes [facility] Name: Sol Whittaker Age: 82 yrs Sex: Female : 1940 Arrival Date: 09/24/2023 Time: 07:47 Bed 5 Private MD: Fabio Lucas Diagnosis: Upper abdominal pain, unspecified;Low back pain Presentation: 09/23 08:04 Chief complaint: Patient states: RUQ pain radiating to back since Saturday , now my iw left side hurts and there's pain in my back , has been on an antibiotic for chronic UTI. Coronavirus screen: At this time, the client does not indicate any symptoms associated with coronavirus-19. Ebola Screen: Patient negative for fever greater than or equal to 101.5 degrees Fahrenheit, and additional compatible Ebola Virus Disease symptoms Patient denies exposure to infectious person. Patient denies travel to an Ebola-affected area in the 21 days before illness onset. No symptoms or risks identified at this time. Initial Sepsis Screen: Does the patient meet any 2 criteria? No. Patient's initial sepsis screen is negative. Does the patient have a suspected source of infection? No. Patient's initial sepsis screen is negative. Risk Assessment: Do you want to hurt yourself or someone else? Patient reports no desire to harm self or others. Onset of symptoms was September 21, 2023. 08:04 Method Of Arrival: Ambulatory iw 08:04 Acuity: ANGELA 3 iw Historical: - Allergies: 08:05 MING INHIBITORS; iw 08:05 Codeine; iw 08:05 metoclopramide HCl; iw 08:05 sulfamethoxazole; iw 08:05 TRIMETHOPRIM; iw - PMHx: 08:05 diabetes mellitus; Hypertensive disorder; iw - PSHx: 08:05 Cholecystectomy; Appendectomy; iw - Immunization history:: Client reports receiving the 2nd dose of the Covid vaccine, Flu vaccine is not up to date. - Infectious Disease History:: Denies. - Social history:: Smoking status: Patient/guardian denies using tobacco, but has a distant history of tobacco abuse. - Family history:: not pertinent. - Hospitalizations: : No recent hospitalization is reported. Screenin:36 [facility] ED Fall Risk Assessment (Adult) History of falling in the last 3 months, ld1 including since admission No falls in past 3 months (0 pts). Abuse screen: Denies threats or abuse. Denies injuries from another. Nutritional screening: No deficits noted. Tuberculosis screening: No symptoms or risk factors identified. Assessment: 09:35 General: Appears in no apparent distress. comfortable, Behavior is calm, cooperative, ld1 appropriate for age. 09:35 Pain: Complains of pain in abdomen Pain does not radiate. Pain currently is 9 out of 10 ld1 on a pain scale. Quality of pain is described as throbbing, Pain began suddenly. Neuro: Level of Consciousness is awake, alert, obeys commands, Oriented to person, place, time, situation. Cardiovascular: Capillary refill < 3 seconds Patient's skin is warm and dry. Respiratory: Airway is patent Respiratory effort is even, unlabored. GI: Abdomen is flat, non-distended. : No signs and/or symptoms were reported regarding the genitourinary system. EENT: No signs and/or symptoms were reported regarding the EENT system. Derm: No signs and/or symptoms reported regarding the dermatologic system. Musculoskeletal: No signs and/or symptoms reported regarding the musculoskeletal system. 10:01 Reassessment: Patient and/or family updated on plan of care and expected duration. Pain rs5 level reassessed. Patient is alert, oriented x 3, equal unlabored respirations, skin warm/dry/pink. Patient states feeling better. Patient states symptoms have improved. 10:30 Reassessment: No changes from previously documented assessment. rs5 Vital Signs: 08:05 BP 170 / 82; Resp 16; Temp 98.4; Pulse Ox 98% on R/A; Pain 7/10; iw 08:09 BP 143 / 64; Pulse 87; Resp 16; Pulse Ox 98% on R/A; Weight 76.2 kg; Height 5 ft. 6 in. iw ; 09:35 BP 165 / 71; Pulse 75; Resp 18; Pulse Ox 94% on R/A; ld1 10:38 BP 170 / 64; Pulse 74; Resp 18; Pulse Ox 98% on R/A; ap3 08:09 Body Mass Index 27.12 (76.20 kg, 167.64 cm) iw 08:05 Pain Scale: Adult iw ED Course: 07:49 Patient arrived in ED. rg4 07:49 Shirley Singh MD is Private Physician. rg4 07:49 Fabio Lucas DO is Private Physician. rg4 07:50 Jorge Colvin MD is Attending Physician. rn 08:05 Triage completed. iw 08:06 Arm band placed on. iw 08:17 Josr Colunga RN is Primary Nurse. rs5 08:31 US Abdomen Limited In Process Unspecified. EDMS 09:35 Primary Nurse role handed off by Josr Colunga RN ld1 09:35 Allie Edmonds, QUANG is Primary Nurse. ld1 09:35 Urinalysis w/ reflexes Sent. ld1 09:35 CBC with Diff Sent. ld1 09:35 CMP Sent. ld1 09:35 Lipase Sent. ld1 09:36 Patient has correct armband on for positive identification. Placed in gown. Bed in low ld1 position. Call light in reach. Side rails up X2. monitor technician on. Pulse ox on. NIBP on. Door closed. Noise minimized. Warm blanket given. 09:36 No provider procedures requiring assistance completed. Inserted saline lock: 22 gauge ld1 in left forearm, using aseptic technique. Blood collected. 10:06 CT Abd/Pelvis - IV Contrast Only In Process Unspecified. EDMS 10:56 IV discontinued, intact, bleeding controlled, No redness/swelling at site. ld1 Administered Medications: No medications were administered Medication: 09:36 VIS not applicable for this client. ld1 Outcome: 10:45 Discharge ordered by . rn 10:55 Discharged to home ambulatory, ld1 10:55 Condition: stable 10:55 Discharge instructions given to patient, Instructed on discharge instructions, follow up and referral plans. Demonstrated understanding of instructions, follow-up care, 10:56 Patient left the ED. ld1 Signatures: Dispatcher [employer] EDMS Juliet Moseley RN RN iw Jorge Colvin MD MD rn Garcia, Rubi rg4 Kathie gA RN RN ap3 Allie Edmonds RN RN ld1 Josr Colunga, QUANG RN rs5 Corrections: (The following items were deleted from the chart) 08:06 08:04 Chief complaint: Patient states: RUQ pain radiating to back since Saturday , now iw my left side hurts and there's pain in my back iw 08:09 08:05 BP 170 / 82; Resp 16bpm; Pulse Ox 98% RA; Temp 98.4F; iw iw
--- NOTE | 2023-09-24 10:46 | EDPHYS ---
Physician Documentation [facility] Name: Sol Whittaker Age: 82 yrs Sex: Female : 1940 Arrival Date: 09/24/2023 Time: 07:47 Bed 5 Private MD: Fabio Lucas ED Physician Jorge Colvin HPI: 09/23 08:12 This 82 yrs old Female presents to ER via Ambulatory with complaints of Flank Pain. rn 08:12 The patient complains of pain in the right mid back. The pain radiates to the abdomen. rn Onset: The symptoms/episode began/occurred 4 day(s) ago. Modifying factors: The symptoms are alleviated by nothing. the symptoms are aggravated by movement. Associated signs and symptoms: Pertinent negatives: diarrhea, fever, urinary frequency, hematuria, nausea, pain radiating to the lower extremities, vomiting. Severity of pain: At its worst the pain was moderate in the emergency department the pain has improved. The patient has not experienced similar symptoms in the past. Patient reports right upper quadrant pain that began several days ago, radiates to the left abdomen and to the mid back. Patient recently started on her second antibiotic for chronic UTI. No fever. No chest pain or shortness of breath. No trauma. Denies hematuria.. Historical: - Allergies: 08:05 MING INHIBITORS; iw 08:05 Codeine; iw 08:05 metoclopramide HCl; iw 08:05 sulfamethoxazole; iw 08:05 TRIMETHOPRIM; iw - PMHx: 08:05 diabetes mellitus; Hypertensive disorder; iw - PSHx: 08:05 Cholecystectomy; Appendectomy; iw - Immunization history:: Client reports receiving the 2nd dose of the Covid vaccine, Flu vaccine is not up to date. - Infectious Disease History:: Denies. - Social history:: Smoking status: Patient/guardian denies using tobacco, but has a distant history of tobacco abuse. - Family history:: not pertinent. - Hospitalizations: : No recent hospitalization is reported. ROS: 08:12 Constitutional: Negative for fever, chills, and weight loss, Cardiovascular: Negative rn for chest pain, palpitations, and edema, Respiratory: Negative for shortness of breath, cough, wheezing, and pleuritic chest pain, Abdomen/GI: Positive for right upper quadrant abdominal pain Back: Positive for mid back pain : Negative for injury, bleeding, discharge, and swelling, MS/Extremity: Negative for injury and deformity, Neuro: Negative for headache, weakness, numbness, tingling, and seizure, Exam: 08:12 Constitutional: This is a well developed, well nourished patient who is awake, alert, rn and in no acute distress. Cardiovascular: Regular rate and rhythm. No pulse deficits. Respiratory: Speaking full sentences, unlabored. No increased work of breathing Abdomen/GI: Soft, mild right upper quadrant and left upper quadrant tenderness. No rebound. No distention Back: No spinal or CVA tenderness Vital Signs: 08:05 BP 170 / 82; Resp 16; Temp 98.4; Pulse Ox 98% on R/A; Pain 7/10; iw 08:09 BP 143 / 64; Pulse 87; Resp 16; Pulse Ox 98% on R/A; Weight 76.2 kg; Height 5 ft. 6 in. iw ; 09:35 BP 165 / 71; Pulse 75; Resp 18; Pulse Ox 94% on R/A; ld1 10:38 BP 170 / 64; Pulse 74; Resp 18; Pulse Ox 98% on R/A; ap3 08:09 Body Mass Index 27.12 (76.20 kg, 167.64 cm) iw 08:05 Pain Scale: Adult iw MDM: 07:50 Patient medically screened. rn 10:44 Differential diagnosis: nephrolithiasis, pyelonephritis, UTI, Pancreatitis, colitis, rn enteritis, side effect of new antibiotic, muscular pain, nonspecific pain. Data reviewed: vital signs, nurses notes, lab test result(s), radiologic studies, CT scan, ultrasound, and as a result, I will discharge patient. Counseling: I had a detailed discussion with the patient and/or guardian regarding the historical points, exam findings, and any diagnostic results supporting the discharge/admit diagnosis, lab results, radiology results, the need for outpatient follow up, to return to the emergency department if symptoms worsen or persist or if there are any questions or concerns that arise at home. Special discussion: Based on the patient's Hx, exam, and Dx evaluation, there is no indication for emergent surgery or inpatient Tx. It is understood by the patient/guardian that if the Sx's persist or worsen they need to return immediately for re-evaluation. I discussed with the patient/guardian in detail that at this point there is no indication for admission to the hospital. It is understood, however, that if the symptoms persist or worsen the patient needs to return immediately for re-evaluation. ED course: No acute findings and workup here. CT abdomen pelvis and ultrasound without acute findings. Labs unremarkable. Patient states more pain with movement. Possible side effect of new antibiotics she just started. Still mild signs of inflammation in the urine so needs to complete her antibiotics and will follow-up with PCP for reevaluation. I have personally reviewed all of the results, including but not limited to blood tests and imaging deemed necessary to safely discharge this patient at this time. All results given to and printed out for patient. I personally went over all the results with the patient and answered all questions. Patient will follow-up with PCP and or specialist as discussed. Return precautions given and understood.. 09/23 08:11 Order name: CBC with Diff; Complete Time: 10:05 09/23 08:11 Order name: CMP; Complete Time: 10:05 09/23 08:11 Order name: Lipase; Complete Time: 10:05 09/23 08:11 Order name: Urinalysis w/ reflexes; Complete Time: 10:05 rn 09/23 08:11 Order name: CT Abd/Pelvis - IV Contrast Only; Complete Time: 10:37 rn 09/23 08:11 Order name: US Abdomen Limited; Complete Time: 10:05 rn 09/23 08:11 Order name: IV Saline Lock; Complete Time: 09:35 rn 09/23 08:11 Order name: Labs collected and sent; Complete Time: 09:35 rn Administered Medications: No medications were administered Disposition Summary: 09/24/23 10:45 Discharge Ordered Notes: Location: Home rn Problem: new rn Symptoms: have improved rn Condition: Stable rn Diagnosis - Upper abdominal pain, unspecified rn - Low back pain rn Followup: rn - With: Private Physician - When: As needed - Reason: Recheck today's complaints, Re-evaluation by your physician Discharge Instructions: - Discharge Summary Sheet rn - Abdominal Pain, Adult rn - Acute Back Pain, Adult rn Forms: - Medication Reconciliation Form rn - Antibiotic college intern - Prescription Opioid Use rn - Patient Portal Instructions rn - Leadership Thank You Letter rn Prescriptions: - Cyclobenzaprine 5 mg Oral Tablet - take 1 tablet ORAL route 3 times per day As needed; 15 tablet; Refills: 0, rn Product Selection Permitted Signatures: Dispatcher [employer] Juliet Amor, QUANG RN iw Jorge Colvin MD MD rn
[2023-09-24 11:14] VITALS: BP 170/64; TEMP 98.4; O2SAT 98
== END 2023-09-24 10:56 | disposition home or self-care (01) ==
LOC: ER 07:47
DX: R10.11 Right upper quadrant pain (principal); M54.50 Low back pain, unspecified; E11.9 Type 2 diabetes mellitus without complications; I10 Essential (primary) hypertension; Z88.2 Allergy status to sulfonamides; Z88.5 Allergy status to narcotic agent
CPT/HCPCS: 85025; 81001; 36415; 83690; 80053; 74177; 76705; 99284; Q9967

== ENCOUNTER 2024-08-01 23:10 | Inpatient (IN) | payer OTHER ==
--- OUTSIDE RECORDS SUMMARY | 2024-08-01 23:15 | XMS REPORT | Continuity of Care Document ---
Author Name Unknown Address [address] [place] [address] [facility] Address [address] [place] [address] Care Team Providers Care Personal Lines Insurance Advisor Name Role Phone Fabio Lucas Primary Care Physician [phone] Fabio Lucas Attending Clinician Unavailable Shirley MAR Attending Clinician Unavailable Elsy Rosado Attending Clinician Unavailable Doctor Unassigned, [place] Attending Clinician U eduin Napoles MD, Crow Macias Attending Clinician [phone] [place] Attending Clinician Unavailabl e [place] Attending Clinician Unavailabl e Payers Payer Name Policy Type Policy Number Effective Date Expiration Date Source [employer] Supplement Plan C1 [id number] 2018 00:00:00 [facility] MEDICARE NOVITAS MB [id number] 2007 00:00:00 [facility] Problems Condition Name Condition Details Condition Category Status Onset Date Resolution Date Last Treatment Date Treating Clinician Comments Source [id number] Chronic cystitis Problem [facility] [id number] Asymptomat ic bacteriuri a Problem [facility] [id number] Congenital meatal stenosis Problem [facility] [id number] Lesion of bladder Problem [facility] [id number] Recurrent UTI Problem [facility] Aphthous ulcer of mouth Canker sores oral Problem [facility] [id number] Bilateral carpal tunnel syndrome Problem [facility] [id number] Type 2 diabetes mellitus with diabetic chronic kidney disease Problem [facility] [id number] Stage 3a chronic kidney disease (CKD) Problem [facility] [id number] Environmen rashad allergies Problem [facility] [id number] JIMBO (generaliz ed anxiety disorder) Problem [facility] [id number] Type 2 diabetes mellitus with other diabetic kidney complicati on Problem [facility] [id number] Moderate major depression , single episode Problem [facility] Type II diabetes mellitus without complicati on Controlled type 2 diabetes mellitus without complicati on, without long-term current use of insulin Problem [facility] [id number] Pain in right knee Problem [facility] [id number] Left arm pain Problem [facility] [id number] Other chronic pain Problem [facility] [id number] Abnormal laboratory test result Problem [facility] [id number] Bladder wall thickening Problem [facility] [id number] Acute cystitis with hematuria Problem [facility] [id number] Microscopi c hematuria Problem [facility] [id number] History of recurrent UTIs Problem [facility] [id number] Depression with anxiety Problem [facility] Gastroesop hageal reflux disease GERD without esophagiti s Problem [facility] [id number] Abnormal kidney function Problem [facility] [id number] Anemia, unspecifie d type Problem [facility] Hypertensi on Hypertensi on, unspecifie d type Problem [facility] [id number] 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 Problem [facility] Hyperlipid emia Hyperlipid emia, unspecifie d hyperlipid emia type Problem [facility] Low back pain Low back pain Problem [facility] [id number] Pain of lower extremity, unspecifie d laterality Problem [facility] [id number] Carotid atheroscle rosis, unspecifie d laterality Problem [facility] [id number] Difficulty sleeping Problem [facility] [id number] Diminished pulses in lower extremity Problem [facility] [id number] Motion sickness, sequela Problem [facility] [id number] Leukocytos is, unspecifie d type Problem [facility] [id number] Pain of left thumb Problem [facility] [id number] Seasonal allergic rhinitis, unspecifie d trigger Problem [facility] [id number] Right hip pain Problem [facility] [id number] Right leg pain Problem [facility] [id number] Bacterial infection of knee joint Problem [facility] [id number] Oral thrush Problem [facility] [id number] Polyarthra lgia Problem [facility] [id number] Dizziness Problem [facility] Allergies, Adverse Reactions, Alerts Allergy Name Allergy Type Status Severity Reaction(s) Onset Date Inactive Date Treating Clinician Comments Source Metoclop ramide Propensi ty to adverse reaction s Active Unknown - See comments 10-02 00:00: 00 Grinding teeth [facility] Sulfa (Sulfona mide Antibiot ics) Propensi ty to adverse reaction s Active Unknown - See comments 10-02 00:00: 00 Upset stomach [facility] METOCLOP RAMIDE DRUG INGREDI Active Unknown-Cmnt 10-02 00:00: 00 [facility] RANJIT INHIBITO RS Drug Class Active Unknown-Cmnt 10-02 00:00: 00 [facility] CODEINE DRUG INGREDI Active Unknown-Cmnt 10-02 00:00: 00 [facility] SULFA (SULFONA MIDE ANTIBIOT ICS) Drug Class Active Unknown-Cmnt 10-02 00:00: 00 [facility] Ranjit Inhibito rs Propensi ty to adverse reaction s Active Unknown - See comments 10-02 00:00: 00 Scratchy throat [facility] Codeine Propensi ty to adverse reaction s Active Unknown - See comments 10-02 00:00: 00 hypervent ilate [facility] metoclop ramide metoclop ramide Active Unknown [facility] sulfamet hoxazole / trimetho prim sulfamet hoxazole / trimetho prim Active Unknown [facility] NO KNOWN ALLERGIE S Drug Class Active [facility] Social History Social Habit Start Date Stop Date Quantity Comments Source [facility] Use [facility] History of Social function 2023-10-03 00:00:00 2023-10-03 00:00:00 [facility] Sex assigned at 1940 00:00:00 1940 00:00:00 [facility] Smoking Status Start Date Stop Date Source Former Smoker 2024-06-22 00:00:00 2024-06-22 00:00:00 [facility] Never Smoker [facility] Tobacco smoking consumption unknown [facility] Medications Ordered Medication Name Filled Medication Name Start Date Stop Date Current Medication? Ordering Clinician Indication Dosage Frequency Signature (SIG) Comments Components Source Estradiol 0.1 MG/GM Estradiol 0.1 MG/GM 06-18 00:00: 00 No Estradiol 0.1 MG/GM Cephalexin 500 MG Cephalexin 500 MG 06-18 00:00: 00 No 1{capsu le} TID Cephalexin 500 MG diclofenac 50 mg EC tablet 10-02 00:00: 00 Yes [id number] 50mg Take 1 tablet by mouth in the morning and 1 tablet in the evening. Take with meals. [facility] cyclobenzap rine 5 mg tablet 2024-0 4-30 00:00: 00 Yes [facility] metFORMIN 500 mg tablet 4-25 00:00: 00 Yes [facility] busPIRone 15 mg tablet 4-13 00:00: 00 Yes [facility] lansoprazol e 30 mg capsule 4-05 00:00: 00 Yes [facility] Nitrofurant oin&Nit. Macrocryst 100 mg capsule 4-04 00:00: 00 Yes [facility] cephALEXin 500 mg capsule 4-02 00:00: 00 Yes [facility] citalopram 20 mg tablet 3-30 00:00: 00 Yes [facility] DULoxetine 20 mg capsule 3-06 00:00: 00 Yes [facility] gabapentin 300 mg capsule 3-06 00:00: 00 Yes [facility] rosuvastati n 20 mg tablet 3-03 00:00: 00 Yes [facility] Rosuvastati n Calcium 20 MG Rosuvastati n Calcium 20 MG 2020-05 2-16 00:00: 00 No 1{table t} QD Rosuvastat in Calcium 20 MG Crestor 20 mg Crestor 20 mg No QD Crestor 20 mg D-Mannose 500 MG D-Mannose 500 MG No 1{capsu le} BID D-Mannose 500 MG Cozaar 25 MG Cozaar 25 MG No 1{table t} QD Cozaar 25 MG Super B Complex Super B Complex No Super B Complex Immunizations Ordered Immunization Name Filled Immunization Name Date Status Comments Source Moderna COVID-19 Vaccine (Low Dose Booster) Moderna COVID-19 Vaccine (Low Dose Booster) 2021-05-03 15:03:00 Completed [facility] Moderna COVID-19 Vaccine (Low Dose Booster) Moderna COVID-19 Vaccine (Low Dose Booster) 2021-05-03 15:03:00 Completed [facility] Moderna COVID-19 Vaccine (Low Dose Booster) Moderna COVID-19 Vaccine (Low Dose Booster) 2021-05-03 15:03:00 Completed [facility] Moderna COVID-19 Vaccine (Low Dose Booster) Moderna COVID-19 Vaccine (Low Dose Booster) 2021-05-03 15:03:00 Completed [facility] Moderna COVID-19 Vaccine (Low Dose Booster) Moderna COVID-19 Vaccine (Low Dose Booster) 2021-05-03 15:03:00 Completed [facility] Moderna COVID-19 Vaccine (Low Dose Booster) Moderna COVID-19 Vaccine (Low Dose Booster) 2021-05-03 15:03:00 Completed [facility] Moderna COVID-19 Vaccine (Low Dose Booster) Moderna COVID-19 Vaccine (Low Dose Booster) 2021-05-03 15:03:00 Completed [facility] Moderna COVID-19 Vaccine (Low Dose Booster) Moderna COVID-19 Vaccine (Low Dose Booster) 2021-05-03 15:03:00 Completed [facility] Moderna COVID-19 Vaccine (Low Dose Booster) Moderna COVID-19 Vaccine (Low Dose Booster) 2021-05-03 15:03:00 Completed [facility] Prevnar 13 (PCV13) Prevnar 13 (PCV13) 2021-03-23 09:02:00 Completed [facility] Prevnar 13 (PCV13) Prevnar 13 (PCV13) 2021-03-23 09:02:00 Completed [facility] Prevnar 13 (PCV13) Prevnar 13 (PCV13) 2021-03-23 09:02:00 Completed [facility] Prevnar 13 (PCV13) Prevnar 13 (PCV13) 2021-03-23 09:02:00 Completed [facility] Prevnar 13 (PCV13) Prevnar 13 (PCV13) 2021-03-23 09:02:00 Completed [facility] Prevnar 13 (PCV13) Prevnar 13 (PCV13) 2021-03-23 09:02:00 Completed [facility] Prevnar 13 (PCV13) Prevnar 13 (PCV13) 2021-03-23 09:02:00 Completed [facility] Prevnar 13 (PCV13) Prevnar 13 (PCV13) 2021-03-23 09:02:00 Completed [facility] Prevnar 13 (PCV13) Prevnar 13 (PCV13) 2021-03-23 09:02:00 Completed [facility] Moderna COVID-19 Vaccine Moderna COVID-19 Vaccine 2020-09-14 15:04:00 Completed [facility] Moderna COVID-19 Vaccine Moderna COVID-19 Vaccine 2020-09-14 15:04:00 Completed [facility] Moderna COVID-19 Vaccine Moderna COVID-19 Vaccine 2020-09-14 15:04:00 Completed [facility] Moderna COVID-19 Vaccine Moderna COVID-19 Vaccine 2020-09-14 15:04:00 Completed [facility] Moderna COVID-19 Vaccine Moderna COVID-19 Vaccine 2020-09-14 15:04:00 Completed [facility] Moderna COVID-19 Vaccine Moderna COVID-19 Vaccine 2020-09-14 15:04:00 Completed [facility] Moderna COVID-19 Vaccine Moderna COVID-19 Vaccine 2020-09-14 15:04:00 Completed [facility] Moderna COVID-19 Vaccine Moderna COVID-19 Vaccine 2020-09-14 15:04:00 Completed [facility] Moderna COVID-19 Vaccine Moderna COVID-19 Vaccine 2020-09-14 15:04:00 Completed [facility] Moderna COVID-19 Vaccine Moderna COVID-19 Vaccine 2020-08-18 15:03:00 Completed [facility] Moderna COVID-19 Vaccine Moderna COVID-19 Vaccine 2020-08-18 15:03:00 Completed [facility] Moderna COVID-19 Vaccine Moderna COVID-19 Vaccine 2020-08-18 15:03:00 Completed [facility] Moderna COVID-19 Vaccine Moderna COVID-19 Vaccine 2020-08-18 15:03:00 Completed [facility] Moderna COVID-19 Vaccine Moderna COVID-19 Vaccine 2020-08-18 15:03:00 Completed [facility] Moderna COVID-19 Vaccine Moderna COVID-19 Vaccine 2020-08-18 15:03:00 Completed [facility] Moderna COVID-19 Vaccine Moderna COVID-19 Vaccine 2020-08-18 15:03:00 Completed [facility] Moderna COVID-19 Vaccine Moderna COVID-19 Vaccine 2020-08-18 15:03:00 Completed [facility] Moderna COVID-19 Vaccine Moderna COVID-19 Vaccine 2020-08-18 15:03:00 Completed [facility] FLUZONE HIGH DOSE OVER 65 FLUZONE HIGH DOSE OVER 65 2019-02-25 15:17:00 Completed [facility] FLUZONE HIGH DOSE OVER 65 FLUZONE HIGH DOSE OVER 65 2019-02-25 15:17:00 Completed [facility] FLUZONE HIGH DOSE OVER 65 FLUZONE HIGH DOSE OVER 65 2019-02-25 15:17:00 Completed [facility] FLUZONE HIGH DOSE OVER 65 FLUZONE HIGH DOSE OVER 65 2019-02-25 15:17:00 Completed [facility] FLUZONE HIGH DOSE OVER 65 FLUZONE HIGH DOSE OVER 65 2019-02-25 15:17:00 Completed [facility] FLUZONE HIGH DOSE OVER 65 FLUZONE HIGH DOSE OVER 65 2019-02-25 15:17:00 Completed [facility] FLUZONE HIGH DOSE OVER 65 FLUZONE HIGH DOSE OVER 65 2019-02-25 15:17:00 Completed [facility] FLUZONE HIGH DOSE OVER 65 FLUZONE HIGH DOSE OVER 65 2019-02-25 15:17:00 Completed [facility] FLUZONE HIGH DOSE OVER 65 FLUZONE HIGH DOSE OVER 65 2019-02-25 15:17:00 Completed [facility] FLUZONE HIGH DOSE OVER 65 FLUZONE HIGH DOSE OVER 65 2018-02-14 14:24:00 Completed [facility] FLUZONE HIGH DOSE OVER 65 FLUZONE HIGH DOSE OVER 65 2018-02-14 14:24:00 Completed [facility] FLUZONE HIGH DOSE OVER 65 FLUZONE HIGH DOSE OVER 65 2018-02-14 14:24:00 Completed [facility] FLUZONE HIGH DOSE OVER 65 FLUZONE HIGH DOSE OVER 65 2018-02-14 14:24:00 Completed [facility] FLUZONE HIGH DOSE OVER 65 FLUZONE HIGH DOSE OVER 65 2018-02-14 14:24:00 Completed [facility] FLUZONE HIGH DOSE OVER 65 FLUZONE HIGH DOSE OVER 65 2018-02-14 14:24:00 Completed [facility] FLUZONE HIGH DOSE OVER 65 FLUZONE HIGH DOSE OVER 65 2018-02-14 14:24:00 Completed [facility] FLUZONE HIGH DOSE OVER 65 FLUZONE HIGH DOSE OVER 65 2018-02-14 14:24:00 Completed [facility] FLUZONE HIGH DOSE OVER 65 FLUZONE HIGH DOSE OVER 65 2018-02-14 14:24:00 Completed [facility] Moderna COVID-19 Vaccine (Low Dose Booster) Moderna COVID-19 Vaccine (Low Dose Booster) Unknown Completed [facility] Moderna COVID-19 Vaccine Moderna COVID-19 Vaccine Unknown Completed [facility] FLUZONE HIGH DOSE OVER 65 FLUZONE HIGH DOSE OVER 65 Unknown Completed [facility] Prevnar 13 (PCV13) Prevnar 13 (PCV13) Unknown Completed [facility] Moderna COVID-19 Vaccine (Low Dose Booster) Moderna COVID-19 Vaccine (Low Dose Booster) Unknown Completed [facility] Moderna COVID-19 Vaccine Moderna COVID-19 Vaccine Unknown Completed [facility] FLUZONE HIGH DOSE OVER 65 FLUZONE HIGH DOSE OVER 65 Unknown Completed [facility] Prevnar 13 (PCV13) Prevnar 13 (PCV13) Unknown Completed [facility] MODERNA COVID-19 VACCINE (LOW DOSE BOOSTER) MODERNA COVID-19 VACCINE (LOW DOSE BOOSTER) Unknown Completed [facility] Moderna COVID-19 Vaccine Moderna COVID-19 Vaccine Unknown Completed [facility] FLUZONE HIGH DOSE OVER 65 FLUZONE HIGH DOSE OVER 65 Unknown Completed [facility] Prevnar 13 (PCV13) Prevnar 13 (PCV13) Unknown Completed [facility] MODERNA COVID-19 VACCINE (LOW DOSE BOOSTER) MODERNA COVID-19 VACCINE (LOW DOSE BOOSTER) Unknown Completed [facility] Moderna COVID-19 Vaccine Moderna COVID-19 Vaccine Unknown Completed [facility] FLUZONE HIGH DOSE OVER 65 FLUZONE HIGH DOSE OVER 65 Unknown Completed [facility] Prevnar 13 (PCV13) Prevnar 13 (PCV13) Unknown Completed [facility] MODERNA COVID-19 VACCINE (LOW DOSE BOOSTER) MODERNA COVID-19 VACCINE (LOW DOSE BOOSTER) Unknown Completed [facility] Moderna COVID-19 Vaccine Moderna COVID-19 Vaccine Unknown Completed [facility] FLUZONE HIGH DOSE OVER 65 FLUZONE HIGH DOSE OVER 65 Unknown Completed [facility] Prevnar 13 (PCV13) Prevnar 13 (PCV13) Unknown Completed [facility] MODERNA COVID-19 VACCINE (LOW DOSE BOOSTER) MODERNA COVID-19 VACCINE (LOW DOSE BOOSTER) Unknown Completed [facility] Moderna COVID-19 Vaccine Moderna COVID-19 Vaccine Unknown Completed [facility] FLUZONE HIGH DOSE OVER 65 FLUZONE HIGH DOSE OVER 65 Unknown Completed [facility] Prevnar 13 (PCV13) Prevnar 13 (PCV13) Unknown Completed [facility] MODERNA COVID-19 VACCINE (LOW DOSE BOOSTER) MODERNA COVID-19 VACCINE (LOW DOSE BOOSTER) Unknown Completed [facility] Moderna COVID-19 Vaccine Moderna COVID-19 Vaccine Unknown Completed [facility] FLUZONE HIGH DOSE OVER 65 FLUZONE HIGH DOSE OVER 65 Unknown Completed [facility] Prevnar 13 (PCV13) Prevnar 13 (PCV13) Unknown Completed [facility] MODERNA COVID-19 VACCINE (LOW DOSE BOOSTER) MODERNA COVID-19 VACCINE (LOW DOSE BOOSTER) Unknown Completed [facility] Moderna COVID-19 Vaccine Moderna COVID-19 Vaccine Unknown Completed [facility] FLUZONE HIGH DOSE OVER 65 FLUZONE HIGH DOSE OVER 65 Unknown Completed [facility] Prevnar 13 (PCV13) Prevnar 13 (PCV13) Unknown Completed [facility] MODERNA COVID-19 VACCINE (LOW DOSE BOOSTER) MODERNA COVID-19 VACCINE (LOW DOSE BOOSTER) Unknown Completed [facility] Moderna COVID-19 Vaccine Moderna COVID-19 Vaccine Unknown Completed [facility] FLUZONE HIGH DOSE OVER 65 FLUZONE HIGH DOSE OVER 65 Unknown Completed [facility] Prevnar 13 (PCV13) Prevnar 13 (PCV13) Unknown Completed [facility] MODERNA COVID-19 VACCINE (LOW DOSE BOOSTER) MODERNA COVID-19 VACCINE (LOW DOSE BOOSTER) Unknown Completed [facility] Moderna COVID-19 Vaccine Moderna COVID-19 Vaccine Unknown Completed [facility] FLUZONE HIGH DOSE OVER 65 FLUZONE HIGH DOSE OVER 65 Unknown Completed [facility] Prevnar 13 (PCV13) Prevnar 13 (PCV13) Unknown Completed [facility] Fluad (IIV) - SDS - 0.5mL Fluad (IIV) - SDS - 0.5mL Unknown Completed [facility] Moderna COVID-19 Vaccine (Low Dose Booster) Moderna COVID-19 Vaccine (Low Dose Booster) Unknown Completed [facility] Moderna COVID-19 Vaccine Moderna COVID-19 Vaccine Unknown Completed [facility] FLUZONE HIGH DOSE OVER 65 FLUZONE HIGH DOSE OVER 65 Unknown Completed [facility] Prevnar 13 (PCV13) Prevnar 13 (PCV13) Unknown Completed [facility] Moderna COVID-19 Vaccine (Low Dose Booster) Moderna COVID-19 Vaccine (Low Dose Booster) Unknown Completed [facility] Moderna COVID-19 Vaccine Moderna COVID-19 Vaccine Unknown Completed [facility] FLUZONE HIGH DOSE OVER 65 FLUZONE HIGH DOSE OVER 65 Unknown Completed [facility] Prevnar 13 (PCV13) Prevnar 13 (PCV13) Unknown Completed [facility] Moderna COVID-19 Vaccine (Low Dose Booster) Moderna COVID-19 Vaccine (Low Dose Booster) Unknown Completed [facility] Moderna COVID-19 Vaccine Moderna COVID-19 Vaccine Unknown Completed [facility] FLUZONE HIGH DOSE OVER 65 FLUZONE HIGH DOSE OVER 65 Unknown Completed [facility] Prevnar 13 (PCV13) Prevnar 13 (PCV13) Unknown Completed [facility] Moderna COVID-19 Vaccine (Low Dose Booster) Moderna COVID-19 Vaccine (Low Dose Booster) Unknown Completed [facility] Moderna COVID-19 Vaccine Moderna COVID-19 Vaccine Unknown Completed [facility] FLUZONE HIGH DOSE OVER 65 FLUZONE HIGH DOSE OVER 65 Unknown Completed [facility] Prevnar 13 (PCV13) Prevnar 13 (PCV13) Unknown Completed [facility] Moderna COVID-19 Vaccine (Low Dose Booster) Moderna COVID-19 Vaccine (Low Dose Booster) Unknown Completed [facility] Moderna COVID-19 Vaccine Moderna COVID-19 Vaccine Unknown Completed [facility] FLUZONE HIGH DOSE OVER 65 FLUZONE HIGH DOSE OVER 65 Unknown Completed [facility] Prevnar 13 (PCV13) Prevnar 13 (PCV13) Unknown Completed [facility] Moderna COVID-19 Vaccine (Low Dose Booster) Moderna COVID-19 Vaccine (Low Dose Booster) Unknown Completed [facility] Moderna COVID-19 Vaccine Moderna COVID-19 Vaccine Unknown Completed [facility] FLUZONE HIGH DOSE OVER 65 FLUZONE HIGH DOSE OVER 65 Unknown Completed [facility] Prevnar 13 (PCV13) Prevnar 13 (PCV13) Unknown Completed [facility] Moderna COVID-19 Vaccine (Low Dose Booster) Moderna COVID-19 Vaccine (Low Dose Booster) Unknown Completed [facility] Moderna COVID-19 Vaccine Moderna COVID-19 Vaccine Unknown Completed [facility] FLUZONE HIGH DOSE OVER 65 FLUZONE HIGH DOSE OVER 65 Unknown Completed [facility] Prevnar 13 (PCV13) Prevnar 13 (PCV13) Unknown Completed [facility] Moderna COVID-19 Vaccine (Low Dose Booster) Moderna COVID-19 Vaccine (Low Dose Booster) Unknown Completed [facility] Moderna COVID-19 Vaccine Moderna COVID-19 Vaccine Unknown Completed [facility] FLUZONE HIGH DOSE OVER 65 FLUZONE HIGH DOSE OVER 65 Unknown Completed [facility] Prevnar 13 (PCV13) Prevnar 13 (PCV13) Unknown Completed [facility] Moderna COVID-19 Vaccine (Low Dose Booster) Moderna COVID-19 Vaccine (Low Dose Booster) Unknown Completed [facility] Moderna COVID-19 Vaccine Moderna COVID-19 Vaccine Unknown Completed [facility] FLUZONE HIGH DOSE OVER 65 FLUZONE HIGH DOSE OVER 65 Unknown Completed [facility] Prevnar 13 (PCV13) Prevnar 13 (PCV13) Unknown Completed [facility] Moderna COVID-19 Vaccine (Low Dose Booster) Moderna COVID-19 Vaccine (Low Dose Booster) Unknown Completed [facility] Moderna COVID-19 Vaccine Moderna COVID-19 Vaccine Unknown Completed [facility] FLUZONE HIGH DOSE OVER 65 FLUZONE HIGH DOSE OVER 65 Unknown Completed [facility] Prevnar 13 (PCV13) Prevnar 13 (PCV13) Unknown Completed [facility] Moderna COVID-19 Vaccine (Low Dose Booster) Moderna COVID-19 Vaccine (Low Dose Booster) Unknown Completed [facility] Moderna COVID-19 Vaccine Moderna COVID-19 Vaccine Unknown Completed [facility] FLUZONE HIGH DOSE OVER 65 FLUZONE HIGH DOSE OVER 65 Unknown Completed [facility] Prevnar 13 (PCV13) Prevnar 13 (PCV13) Unknown Completed [facility] Moderna COVID-19 Vaccine (Low Dose Booster) Moderna COVID-19 Vaccine (Low Dose Booster) Unknown Completed [facility] Moderna COVID-19 Vaccine Moderna COVID-19 Vaccine Unknown Completed [facility] FLUZONE HIGH DOSE OVER 65 FLUZONE HIGH DOSE OVER 65 Unknown Completed [facility] Prevnar 13 (PCV13) Prevnar 13 (PCV13) Unknown Completed [facility] Moderna COVID-19 Vaccine (Low Dose Booster) Moderna COVID-19 Vaccine (Low Dose Booster) Unknown Completed [facility] Moderna COVID-19 Vaccine Moderna COVID-19 Vaccine Unknown Completed [facility] FLUZONE HIGH DOSE OVER 65 FLUZONE HIGH DOSE OVER 65 Unknown Completed [facility] Prevnar 13 (PCV13) Prevnar 13 (PCV13) Unknown Completed [facility] Vital Signs Vital Name Observation Time Observation Value Comments S ource height 2024-06-22 14:30:00 64 [in_i] Commo n [facility] weight 2024-06-22 14:30:00 159.2 [lb_av] Co mmon [facility] temperature 2024-06-22 14:30:00 97.5 [degF] Com mon [facility] bmi 2024-06-22 14:30:00 27.32 kg/m2 Comm on [facility] oximetry 2024-06-22 14:30:00 96 % Commo n [facility] respiratory rate 2024-06-22 14:30:00 16 /min Common [facility] blood pressure systolic 2024-06-22 14:30:00 124 mm[Hg] [facility] blood pressure diastolic 2024-06-22 14:30:00 62 mm[Hg] [facility] height 2024-06-18 14:45:00 64 [in_i] Commo n [facility] weight 2024-06-18 14:45:00 162 [lb_av] Comm on [facility] temperature 2024-06-18 14:45:00 97.1 [degF] Com mon [facility] bmi 2024-06-18 14:45:00 27.8 kg/m2 Commo n [facility] oximetry 2024-06-18 14:45:00 96 % Commo n [facility] respiratory rate 2024-06-18 14:45:00 18 /min [facility] blood pressure systolic 2024-06-18 14:45:00 144 mm[Hg] [facility] blood pressure diastolic 2024-06-18 14:45:00 71 mm[Hg] [facility] height 2024-03-18 14:30:00 64 [in_i] Commo n [facility] weight 2024-03-18 14:30:00 163.6 [lb_av] Co mmon [facility] temperature 2024-03-18 14:30:00 97.9 [degF] Com [facility] [place] bmi 2024-03-18 14:30:00 28.08 kg/m2 Comm on [facility] oximetry 2024-03-18 14:30:00 96 % Commo n [facility] respiratory rate 2024-03-18 14:30:00 18 /min Common [facility] blood pressure systolic 2024-03-18 14:30:00 109 mm[Hg] [facility] blood pressure diastolic 2024-03-18 14:30:00 71 mm[Hg] [facility] height 2024-02-11 14:30:00 64 [in_i] Commo n [facility] weight 2024-02-11 14:30:00 162 [lb_av] Comm on [facility] temperature 2024-02-11 14:30:00 97.4 [degF] Com [facility] [place] bmi 2024-02-11 14:30:00 27.8 kg/m2 Commo n [facility] oximetry 2024-02-11 14:30:00 94 % Commo n [facility] blood pressure systolic 2024-02-11 14:30:00 128 mm[Hg] [facility] blood pressure diastolic 2024-02-11 14:30:00 74 mm[Hg] [facility] height 2024-02-11 14:20:00 64 [in_i] Commo n [facility] weight 2024-02-11 14:20:00 162 [lb_av] Comm on [facility] temperature 2024-02-11 14:20:00 97.4 [degF] Com [facility] [place] bmi 2024-02-11 14:20:00 27.8 kg/m2 Commo n [facility] oximetry 2024-02-11 14:20:00 94 % Commo n [facility] blood pressure systolic 2024-02-11 14:20:00 128 mm[Hg] [facility] blood pressure diastolic 2024-02-11 14:20:00 74 mm[Hg] [facility] height 2024-02-11 14:20:00 64 [in_i] Commo n [facility] weight 2024-02-11 14:20:00 162 [lb_av] Comm on [facility] temperature 2024-02-11 14:20:00 97.4 [degF] Com mon [facility] bmi 2024-02-11 14:20:00 27.8 kg/m2 Commo n [facility] oximetry 2024-02-11 14:20:00 94 % Commo n [facility] blood pressure systolic 2024-02-11 14:20:00 128 mm[Hg] [facility] blood pressure diastolic 2024-02-11 14:20:00 74 mm[Hg] Common [facility] height 2023-11-20 14:00:00 64 [in_i] Commo n [facility] weight 2023-11-20 14:00:00 164.4 [lb_av] Co mmon [facility] temperature 2023-11-20 14:00:00 97.7 [degF] Com [facility] [place] bmi 2023-11-20 14:00:00 28.22 kg/m2 Comm on [facility] oximetry 2023-11-20 14:00:00 98 % Commo n [facility] respiratory rate 2023-11-20 14:00:00 18 /min Common [facility] blood pressure systolic 2023-11-20 14:00:00 129 mm[Hg] [facility] blood pressure diastolic 2023-11-20 14:00:00 70 mm[Hg] Common [facility] height 2023-11-11 14:00:00 64 [in_i] Commo n [facility] weight 2023-11-11 14:00:00 160 [lb_av] Comm on [facility] temperature 2023-11-11 14:00:00 97.7 [degF] Com mon [facility] bmi 2023-11-11 14:00:00 27.46 kg/m2 Comm on [facility] oximetry 2023-11-11 14:00:00 97 % Commo n [facility] blood pressure systolic 2023-11-11 14:00:00 134 mm[Hg] [facility] blood pressure diastolic 2023-11-11 14:00:00 78 mm[Hg] [facility] Systolic blood pressure 2023-10-03 15:20:00 135 mm[Hg] [facility] Diastolic blood pressure 2023-10-03 15:20:00 86 mm[Hg] [facility] Heart rate 2023-10-03 15:20:00 82 /min [facility] Body height 2023-10-03 15:20:00 167.6 cm [facility] Body weight 2023-10-03 15:20:00 73.301 kg [facility] BMI 2023-10-03 15:20:00 26.08 kg/m2 [facility] height 2023-08-20 15:30:00 64 [in_i] Commo n [facility] weight 2023-08-20 15:30:00 160.8 [lb_av] Co mmon [facility] temperature 2023-08-20 15:30:00 97.7 [degF] Com mon [facility] bmi 2023-08-20 15:30:00 27.6 kg/m2 Commo n [facility] oximetry 2023-08-20 15:30:00 96 % Commo n [facility] respiratory rate 2023-08-20 15:30:00 18 /min Common [facility] blood pressure systolic 2023-08-20 15:30:00 143 mm[Hg] [facility] blood pressure diastolic 2023-08-20 15:30:00 69 mm[Hg] Common [facility] height 2023-06-12 10:10:00 64 [in_i] Commo n [facility] weight 2023-06-12 10:10:00 175 [lb_av] Comm on [facility] temperature 2023-06-12 10:10:00 98 [degF] Comm on [facility] bmi 2023-06-12 10:10:00 30.04 kg/m2 Comm on [facility] blood pressure systolic 2023-06-12 10:10:00 110 mm[Hg] [facility] blood pressure diastolic 2023-06-12 10:10:00 60 mm[Hg] Common [facility] height 2023-05-16 09:30:00 64 [in_i] Commo n [facility] weight 2023-05-16 09:30:00 162.2 [lb_av] Co mmon [facility] temperature 2023-05-16 09:30:00 98.8 [degF] Com mon [facility] bmi 2023-05-16 09:30:00 27.84 kg/m2 Comm on [facility] oximetry 2023-05-16 09:30:00 97 % Commo n [facility] respiratory rate 2023-05-16 09:30:00 16 /min Common [facility] blood pressure systolic 2023-05-16 09:30:00 103 mm[Hg] [facility] blood pressure diastolic 2023-05-16 09:30:00 58 mm[Hg] [facility] height 2023-04-17 15:45:00 64 [in_i] Commo n [facility] weight 2023-04-17 15:45:00 161.4 [lb_av] Co mmon [facility] temperature 2023-04-17 15:45:00 97.6 [degF] Com mon [facility] bmi 2023-04-17 15:45:00 27.7 kg/m2 Commo n [facility] oximetry 2023-04-17 15:45:00 99 % Commo n [facility] respiratory rate 2023-04-17 15:45:00 18 /min [facility] blood pressure systolic 2023-04-17 15:45:00 135 mm[Hg] [facility] blood pressure diastolic 2023-04-17 15:45:00 67 mm[Hg] [facility] height 2023-02-01 10:40:00 64 [in_i] Commo n [facility] weight 2023-02-01 10:40:00 164.0 [lb_av] Co [facility] temperature 2023-02-01 10:40:00 97.0 [degF] Com [facility] [place] bmi 2023-02-01 10:40:00 28.15 kg/m2 Comm on [facility] oximetry 2023-02-01 10:40:00 97 % Commo n [facility] respiratory rate 2023-02-01 10:40:00 18 /min [facility] blood pressure systolic 2023-02-01 10:40:00 126 mm[Hg] [facility] blood pressure diastolic 2023-02-01 10:40:00 68 mm[Hg] [facility] height 2023-02-01 10:30:00 64 [in_i] Commo n [facility] weight 2023-02-01 10:30:00 164.0 [lb_av] Co [facility] temperature 2023-02-01 10:30:00 97.0 [degF] Com [facility] [place] bmi 2023-02-01 10:30:00 28.15 kg/m2 Comm on [facility] oximetry 2023-02-01 10:30:00 97 % Commo n [facility] respiratory rate 2023-02-01 10:30:00 18 /min Common [facility] blood pressure systolic 2023-02-01 10:30:00 126 mm[Hg] [facility] blood pressure diastolic 2023-02-01 10:30:00 68 mm[Hg] [facility] height 2022-08-17 09:00:00 64 [in_i] Commo n [facility] weight 2022-08-17 09:00:00 161.6 [lb_av] Co mmon [facility] temperature 2022-08-17 09:00:00 97.2 [degF] Com mon [facility] bmi 2022-08-17 09:00:00 27.74 kg/m2 Comm on [facility] oximetry 2022-08-17 09:00:00 97 % Commo n [facility] respiratory rate 2022-08-17 09:00:00 17 /min [facility] blood pressure systolic 2022-08-17 09:00:00 132 mm[Hg] [facility] blood pressure diastolic 2022-08-17 09:00:00 65 mm[Hg] Common [facility] height 2022-05-04 16:20:00 64 [in_i] Commo n [facility] weight 2022-05-04 16:20:00 158.0 [lb_av] Co mmon [facility] temperature 2022-05-04 16:20:00 97.3 [degF] Com mon [facility] bmi 2022-05-04 16:20:00 27.12 kg/m2 Comm on [facility] oximetry 2022-05-04 16:20:00 96 % Commo n [facility] respiratory rate 2022-05-04 16:20:00 16 /min Common [facility] blood pressure systolic 2022-05-04 16:20:00 100 mm[Hg] [facility] blood pressure diastolic 2022-05-04 16:20:00 68 mm[Hg] [facility] height 2022-02-02 15:20:00 66 [in_i] Commo n [facility] weight 2022-02-02 15:20:00 164.6 [lb_av] Co mmon [facility] temperature 2022-02-02 15:20:00 97.5 [degF] Com mon [facility] bmi 2022-02-02 15:20:00 26.56 kg/m2 Comm on [facility] oximetry 2022-02-02 15:20:00 95 % Commo n [facility] respiratory rate 2022-02-02 15:20:00 15 /min [facility] blood pressure systolic 2022-02-02 15:20:00 112 mm[Hg] [facility] blood pressure diastolic 2022-02-02 15:20:00 66 mm[Hg] [facility] height 2022-02-02 14:20:00 66 [in_i] Commo n [facility] weight 2022-02-02 14:20:00 164.6 [lb_av] Co mmon [facility] temperature 2022-02-02 14:20:00 97.5 [degF] Com mon [facility] bmi 2022-02-02 14:20:00 26.56 kg/m2 Comm on [facility] oximetry 2022-02-02 14:20:00 95 % Commo n [facility] respiratory rate 2022-02-02 14:20:00 15 /min [facility] blood pressure systolic 2022-02-02 14:20:00 112 mm[Hg] [facility] blood pressure diastolic 2022-02-02 14:20:00 66 mm[Hg] Common [facility] height 2021-11-14 09:40:00 66 [in_i] Commo n [facility] weight 2021-11-14 09:40:00 172 [lb_av] Comm on [facility] temperature 2021-11-14 09:40:00 97.7 [degF] Com mon [facility] bmi 2021-11-14 09:40:00 27.76 kg/m2 Comm on [facility] height 2021-10-24 16:40:00 66 [in_i] Commo n [facility] weight 2021-10-24 16:40:00 122 [lb_av] Comm on [facility] temperature 2021-10-24 16:40:00 97.2 [degF] Com [facility] [place] bmi 2021-10-24 16:40:00 19.69 kg/m2 Comm on [facility] height 2021-10-03 11:00:00 66.00 [in_i] Com [facility] [place] weight 2021-10-03 11:00:00 122.2 [lb_av] Co mmon [facility] temperature 2021-10-03 11:00:00 97.2 [degF] Com [facility] [place] bmi 2021-10-03 11:00:00 19.72 kg/m2 Comm on [facility] oximetry 2021-10-03 11:00:00 97 % Commo n [facility] respiratory rate 2021-10-03 11:00:00 16 /min Common [facility] blood pressure systolic 2021-10-03 11:00:00 120 mm[Hg] Common [facility] blood pressure diastolic 2021-10-03 11:00:00 74 mm[Hg] Common [facility] height 2021-07-04 14:40:00 66.00 [in_i] Com [facility] [place] weight 2021-07-04 14:40:00 173 [lb_av] Comm on [facility] temperature 2021-07-04 14:40:00 97.8 [degF] Com [facility] [place] bmi 2021-07-04 14:40:00 27.92 kg/m2 Comm on [facility] oximetry 2021-07-04 14:40:00 95 % Commo n [facility] respiratory rate 2021-07-04 14:40:00 16 /min Common [facility] blood pressure systolic 2021-07-04 14:40:00 110 mm[Hg] [facility] blood pressure diastolic 2021-07-04 14:40:00 62 mm[Hg] [facility] height 2021-04-17 08:40:00 66.00 [in_i] Com [facility] [place] weight 2021-04-17 08:40:00 176 [lb_av] Comm on [facility] bmi 2021-04-17 08:40:00 28.4 kg/m2 Commo n [facility] blood pressure systolic 2021-04-17 08:40:00 115 mm[Hg] [facility] blood pressure diastolic 2021-04-17 08:40:00 75 mm[Hg] [facility] Procedures Procedure Date / Time Performed Performing Clinicia n Source PVR 2024-03-18 00:00:00 [facility] REFERRAL- REQUEST/RESPONSE 2023-10-02 15:06:38 Doctor Unassigned, [place] [facility] REFERRAL- REQUEST/RESPONSE 2023-09-23 20:38:01 Doctor Unassigned, [place] [facility] PVR 2023-04-26 00:00:00 [facility] PVR 2023-04-17 00:00:00 [facility] Encounters Start Date/Time End Date/Time Encounter Type Admission Type Attending Clinicians Care Facility Care Department Encounter ID Source 2024-03-04 14:59:00 Outpatient Lucas, Fabio STLMLC STLMLC [id number] [facility] 2023-11-11 14:07:00 Outpatient Lucas, Fabio STLMLC STLMLC [id number] [facility] 2023-06-10 15:03:00 Outpatient Lucas, Fabio STLMLC STLMLC [id number] [facility] 2022-12-14 14:16:00 Outpatient Lucas, Fabio STLMLC STLMLC [id number] [facility] 2022-08-10 09:58:00 Outpatient Lucas, Fabio STLMLC STLMLC [id number] [facility] 2022-06-14 13:29:00 Outpatient MAR, Na STLMLC STLMLC [id number] [facility] 2022-05-02 08:37:00 Outpatient Mar, Na STLMLC STLMLC [id number] [facility] 2022-04-12 16:21:00 Outpatient Mar, Na STLMLC STLMLC [id number] [facility] 2022-01-31 09:28:00 Outpatient Mar, Na STLMLC STLMLC [id number] [facility] 2021-11-08 11:15:01 Outpatient Mar, Na STLMLC STLMLC [id number] [facility] 2021-09-29 09:09:02 Outpatient Mar, Na STLMLC STLMLC [id number] [facility] 2021-07-03 14:46:00 Outpatient Mar, Na STLMLC STLMLC [id number] [facility] 2021-06-21 14:22:28 Outpatient Mar, Na STLMLC STLMLC [id number] [facility] 2021-06-21 13:42:15 Outpatient Mar, Na STLMLC STLMLC [id number] [facility] 2021-06-21 13:29:49 Outpatient Mar, Na STLMLC STLMLC [id number] [facility] 2021-06-21 13:29:15 Outpatient Mar, Na STLMLC STLMLC [id number] [facility] 2021-06-21 13:13:13 Outpatient Mar, Na STLMLC STLMLC [id number] [facility] 2021-06-21 13:12:38 Outpatient Mar, Na STLMLC STLMLC [id number] [facility] 2021-06-21 12:39:38 Outpatient Mar, Na STLMLC STLMLC [id number] [facility] 2021-06-21 12:38:55 Outpatient Mar, Na STLMLC STLMLC [id number] [facility] 2021-06-21 12:05:32 Outpatient Mar, Na STLMLC STLMLC [id number] [facility] 2021-06-21 12:05:08 Outpatient Mar, Na STLMLC STLMLC [id number] [facility] 2021-06-21 12:04:34 Outpatient Mar, Na STLMLC STLMLC [id number] [facility] 2021-06-21 12:03:18 Outpatient Alphonso Rosadoen STLMLC STLMLC [id number] [facility] 2021-06-21 11:49:01 Outpatient Elsy Rosado STLMLC STLMLC [id number] [facility] 2021-06-21 11:48:17 Outpatient Elsy Rosado STLMLC STLMLC [id number] [facility] 2021-06-21 11:40:18 Outpatient Elsy Rosado ST[facility] [id number] [facility] 2024-07-17 00:00:00 2024-07-17 00:00:00 (TEL) STLMLC STLC [id number] [facility] 2023-10-02 00:00:00 2024-07-11 07:50:22 Orders Only Doctor Unassigned, [place] Doctor Unassigned, [place] [facility] [id number] [facility] 2023-09-23 00:00:00 2024-07-11 02:09:26 Orders Only Doctor Unassigned, [place] Doctor Unassigned, [place] [facility] ([facility]) [id number] [facility] 2024-06-22 00:00:00 2024-06-22 00:00:00 OFFICE VISIT ESTAB PT LEVEL 4 STLMLC STLC [id number] [facility] 2024-06-18 00:00:00 2024-06-18 00:00:00 OFFICE VISIT ESTAB PT LEVEL 4 [facility]LMLC STLC [id number] [facility] 2024-06-02 00:00:00 2024-06-02 00:00:00 (TEL) STLMLC STLMLC [id number] [facility] 2024-05-13 00:00:00 2024-05-13 00:00:00 (TEL) STLMLC STLMLC [id number] [facility] 2024-04-21 00:00:00 2024-04-21 00:00:00 (TEL) STLMLC STLMLC [id number] [facility] 2024-04-17 00:00:00 2024-04-17 00:00:00 ([place]) Nurse Visit STLMLC STLMLC [id number] [facility] 2024-04-15 00:00:00 2024-04-15 00:00:00 (TEL) STLMLC STLMLC [id number] [facility] 2024-03-18 00:00:00 2024-03-18 00:00:00 OFFICE VISIT ESTAB PT LEVEL 3 STLMLC STLMLC [id number] [facility] 2024-02-11 00:00:00 2024-02-11 00:00:00 OFFICE VISIT ESTAB PT LEVEL 4 STLMLC STLMLC [id number] [facility] 2024-02-11 00:00:00 2024-02-11 00:00:00 SUB ANNUAL [facility] WELLNESS VISIT STLMLC STLMLC [id number] [facility] 2024-02-03 00:00:00 2024-02-03 00:00:00 (TEL) STLMLC STLMLC [id number] [facility] 2023-11-20 00:00:00 2023-11-20 00:00:00 OFFICE VISIT ESTAB PT LEVEL 4 STLMLC STLMLC [id number] [facility] 2023-11-11 00:00:00 2023-11-11 00:00:00 OFFICE VISIT ESTAB PT LEVEL 4 STLMLC STLMLC [id number] [facility] 2023-10-03 10:20:20 2023-10-03 23:59:00 [facility] [id number] [facility] 2023-10-03 10:30:00 2023-10-03 10:40:48 Outpatient R [facility] [id number] [facility] 2023-10-03 10:30:00 2023-10-03 10:40:48 [facility] [id number] [facility] 2023-09-23 00:00:00 2023-09-23 00:00:00 (TEL) STLMLC STLMLC [id number] [facility] 2023-09-23 00:00:00 2023-09-23 00:00:00 (TEL) STLMLC STLMLC [id number] [facility] 2023-09-11 00:00:00 2023-09-11 00:00:00 (TEL) STLMLC STLMLC [id number] [facility] 2023-08-26 00:00:00 2023-08-26 00:00:00 (TEL) STLMLC STLMLC [id number] [facility] 2023-08-26 00:00:00 2023-08-26 00:00:00 (TEL) STLMLC STLMLC [id number] [facility] 2023-08-20 00:00:00 2023-08-20 00:00:00 OFFICE VISIT ESTAB PT LEVEL 3 STLMLC STLMLC [id number] [facility] 2023-06-12 00:00:00 2023-06-12 00:00:00 OFFICE VISIT ESTAB PT LEVEL 4 STLMLC STLMLC [id number] [facility] 2023-05-24 00:00:00 2023-05-24 00:00:00 (TEL) STLMLC STLMLC [id number] [facility] 2023-05-16 00:00:00 2023-05-16 00:00:00 OFFICE VISIT ESTAB PT LEVEL 4 STLMLC STLMLC [id number] [facility] 2023-05-03 00:00:00 2023-05-03 00:00:00 (TEL) STLMLC STLMLC [id number] [facility] 2023-04-26 00:00:00 2023-04-26 00:00:00 ([place]) Nurse Visit STLMLC STLMLC [id number] [facility] 2023-04-25 00:00:00 2023-04-25 00:00:00 (TEL) STLMLC STLMLC [id number] [facility] 2023-04-17 00:00:00 2023-04-17 00:00:00 OFFICE VISIT NEW PT LEVEL 3 STLMLC STLMLC [id number] [facility] 2023-02-01 00:00:00 2023-02-01 00:00:00 OFFICE VISIT ESTAB PT LEVEL 4 STLMLC STLMLC [id number] [facility] 2023-02-01 00:00:00 2023-02-01 00:00:00 SUB ANNUAL [facility] WELLNESS VISIT STLMLC STLMLC [id number] [facility] 2023-01-25 00:00:00 2023-01-25 00:00:00 (TEL) STLMLC STLMLC [id number] [facility] 2022-12-20 00:00:00 2022-12-20 00:00:00 (TEL) STLMLC STLMLC [id number] [facility] 2022-12-14 00:00:00 2022-12-14 00:00:00 (TEL) STLMLC STLMLC [id number] [facility] 2022-10-09 00:00:00 2022-10-09 00:00:00 (TEL) STLMLC STLMLC [id number] [facility] 2022-09-27 00:00:00 2022-09-27 00:00:00 (TEL) STLMLC STLMLC [id number] [facility] 2022-08-17 00:00:00 2022-08-17 00:00:00 OFFICE VISIT ESTAB PT LEVEL 4 STLMLC STLMLC [id number] [facility] 2022-08-10 00:00:00 2022-08-10 00:00:00 (TEL) STLMLC STLMLC [id number] [facility] 2022-05-04 00:00:00 2022-05-04 00:00:00 (TEL) STLMLC STLMLC [id number] [facility] 2022-05-04 00:00:00 2022-05-04 00:00:00 OFFICE VISIT EST PT LEVEL 3 STLMLC STLMLC [id number] [facility] 2022-04-26 00:00:00 2022-04-26 00:00:00 (TEL) STLMLC STLMLC [id number] [facility] 2022-04-26 00:00:00 2022-04-26 00:00:00 OL DIG E/M SVC 11-20 MIN STLMLC STLMLC [id number] [facility] 2022-04-11 00:00:00 2022-04-11 00:00:00 (TEL) STLMLC STLMLC [id number] [facility] 2022-02-02 00:00:00 2022-02-02 00:00:00 SUB ANNUAL [facility] WELLNESS VISIT STLMLC STLMLC [id number] [facility] 2022-02-02 00:00:00 2022-02-02 00:00:00 OFFICE VISIT EST PT LEVEL 3 STLMLC STLMLC [id number] [facility] 2021 00:00:00 2021 00:00:00 (TEL) STLMLC STLMLC [id number] [facility] 2021-11-14 00:00:00 2021-11-14 00:00:00 OFFICE VISIT ESTAB PT LEVEL 1 STLMLC STLMLC [id number] [facility] 2021-11-08 00:00:00 2021-11-08 00:00:00 (TEL) STLMLC STLMLC [id number] [facility] 2021-11-08 00:00:00 2021-11-08 00:00:00 OL DIG E/M SVC 11-20 MIN STLMLC STLMLC [id number] [facility] 2021-10-24 00:00:00 2021-10-24 00:00:00 (TEL) STLMLC STLMLC [id number] [facility] 2021-10-24 00:00:00 2021-10-24 00:00:00 OFFICE VISIT EST PT LEVEL 3 STLMLC STLMLC [id number] [facility] 2021-10-03 00:00:00 2021-10-03 00:00:00 OFFICE VISIT ESTAB PT LEVEL 4 [facility] ST[facility]C [id number] [facility] 2021-07-04 00:00:00 2021-07-04 00:00:00 OFFICE VISIT ESTAB PT LEVEL 4 [facility] ST[facility]C [id number] [facility] 2021-05-11 00:00:00 2021-05-11 00:00:00 (TEL) [facility]LMLC STLMLC [id number] [facility] 2021-05-03 00:00:00 2021-05-03 00:00:00 (COVID Inj) COVID Injection [facility]LMLC STLMLC [id number] [facility] 2021-04-17 00:00:00 2021-04-17 00:00:00 OL DIG E/M SVC 11-20 MIN [facility]C ST[facility]C [id number] [facility] 2021-01-17 00:00:00 2021-01-17 00:00:00 Outpatient [facility]C ST[facility]C [id number] [facility] 2020-12-28 00:00:00 2020-12-28 00:00:00 Outpatient [facility]C ST[facility]C [id number] [facility] 2020-12-19 00:00:00 2020-12-19 00:00:00 Outpatient [facility]C [facility]C [id number] [facility] 2020-12-16 00:00:00 2020-12-16 00:00:00 Outpatient [facility] ST[facility]C [id number] [facility] 2020-12-08 00:00:00 2020-12-08 00:00:00 Outpatient [facility] ST[facility]C [id number] [facility] 2020-11-20 00:00:00 2020-11-20 00:00:00 Outpatient [facility]C [id number] [facility] 2020-11-04 00:00:00 2020-11-04 00:00:00 Outpatient [facility]C STL[facility]C [id number] [facility] 2020-08-05 00:00:00 2020-08-05 00:00:00 Outpatient STLMLC STLMLC [id number] [facility] 2020-04-19 00:00:00 2020-04-19 00:00:00 Outpatient STLMLC STLMLC [id number] [facility] 2020-04-11 00:00:00 2020-04-11 00:00:00 Outpatient STLMLC STLMLC [id number] [facility] 2020-02-18 00:00:00 2020-02-18 00:00:00 Outpatient STLMLC STLMLC [id number] [facility] Results Test Description Test Time Test Comments Results Result Co mments Source REFERRAL- REQUEST/[id number] 15:06:38[facility] by an unspecified provider. [facility][id number] 20:38:01 Ordered by an unspecified provider.[facility] W/REFL [id number] 00:00:00CLINICAL INFORMATIONPATHOLOGISTREPORT NOTESSCREENERDEXA, BONE DENSITY AXIAL SKELEDEXA, BONE DENSITY AXIAL SKELE
[2024-08-01] MEDS ORDERED: NALOXONE 0.4 MG/ML VIAL ONE (23:20)
[2024-08-01] MEDS ORDERED: NA CHLORIDE 0.9% 1,000 ML ONE (23:21)
[2024-08-01 23:50] LABS: Absolute Eosinophils 0.4 K/uL (0-0.5); Absolute Lymphocytes (CBC) 2.5 K/uL (0.7-4.9); Absolute Monocytes 0.5 K/uL (0.1-1.3); Absolute Neutrophil 2.9 K/uL (1.8-8.0); Basophils % 0.5 % (0-1.3); Eosinophils % 5.9 % (0-4.4); Hematocrit 35.8 % (36.0-45.0); Hemoglobin 11.8 g/dL (12.0-15.0); Lymphocytes % 39.2 % (15.3-44.8); MCH 29.1 pg (27.0-35.0); MCHC 32.9 g/dL (32.0-36.0); MCV 88.3 fL (80-100); MPV 9.6 fL (7.6-11.3); Monocytes % 8.5 % (3.3-12.3); Neutrophils % 45.9 % (41.7-73.7); Nucleated Red Blood Cells % 0.1 % (0-0); Platelets 207 thou/uL (152-406); RBC Red Blood Cell Count 4.05 M/uL (3.86-4.86); Red Cell Distribution Width 13.2 % (12.1-15.2)
[2024-08-01 23:54] LABS: PT Prothrombin Time 10.8 SECONDS (10-13.0); Protime INR 0.94
[2024-08-02 00:04] LABS: ALT/SGPT 23 U/L (13-56); AST/SGOT 13 U/L (15-37); Albumin 3.4 g/dL (3.4-5.0); Alkaline Phosphatase 77 U/L (45-117); Anion Gap 10.8 mEq/L (5.0-15.0); BUN Blood Urea Nitrogen 27 mg/dL (7-18); Bicarbonate 27 mEq/L (21-32); Bilirubin Total 0.3 mg/dL (0.2-1.0); Globulin 3.3 g/dL (2.3-3.5); Glomerular Filtration Rate 45 ml/min (=/>90); Glucose Level 151 mg/dL (74-106); Potassium 3.8 mEq/L (3.5-5.1); Protein, Total 6.7 g/dL (6.4-8.2); Sodium Level 138 mEq/L (136-145); Troponin High Sensitivity 6.8 pg/mL (<58.9)
[2024-08-02 00:06] LABS: Bilirubin Direct < 0.2 mg/dL (0-0.2); Bilirubin Indirect, Calculated 0.1 mg/dL (0.2-0.8)
--- NOTE | 2024-08-02 00:29 | RAD REPORT ---
ADDENDUM #1 THIS REPORT CONTAINS FINDINGS THAT MAY BE CRITICAL TO PATIENT CARE: I communicated the above findings by telephone with Dr. Shant Walters on 08/02/2024 12:06 AM BEAUTY [employer]IST who demonstrated understanding of the above finding(s)/recommendation(s). 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 Sagittal and cor onal reformatted images were created and reviewed. This CT exam was performed using one or more of the following dose reduction techniques: automated exposure control, adjustment of the mA and/or kV according to patient size, and/or use of iterative reconstruction technique. COMPARISON: CT of the head October 31, 2021 FINDINGS: BRAIN: Unremarkable. The ruiz-white matter differentiation is preserved . No hemorrhage. No s ignificant white matter disease. No edema. No extra-axial fluid collections. VENTRICLES: Unremarkable. No ventriculomegaly. BONES/JOINTS: No acute fracture. SOFT TISSUES: Unremarkable. SINUSES: Unremarkable as visualized. No acute sinusitis. MASTOID AIR CELLS: Unremarkable as visualized. No mastoid effusion. ORBITS: Unremarkable as visualized. IMPRESSION: No acute intracranial findings. Electronically signed by: Ivy Curran MD 08/02/2024 12:01 AM BEAUT[employer] ARTIST RP Due to temporary technical issues with the PACS/Stuffle reporting system, reports are being wilberto d by the in-house radiologist without review as a courtesy to ensure prompt reporting the interpreting radiologist is fully responsible for the content of the report. Transcribed Date/Time: 08/02/2024 12:29 AM
[2024-08-02] MEDS ORDERED: NA CHLORIDE 0.9% 1,000 ML ONE ×2 (00:37→05:54)
[2024-08-02] MEDS ORDERED: NOREPINEPHRINE BITARTRATE/D5W 4 MG/250 ML BAG IV ONE (01:04)
--- NOTE | 2024-08-02 01:20 | RAD REPORT ---
EXAM: CT Angiography Head With Intravenous Contrast CLINICAL HISTORY: The patient is 83 years old and is Female; ams TECHNIQUE: Axial computed tomographic angiography images of the head with intravenous contrast. S agittal and coronal reformatted images were created and reviewed. This CT exam was performed using one or more of the following dose reduction techniques: automated exposure control, adjustmen t of the mA and/or kV according to patient size, and/or use of iterative reconstruction technique. MIP reconstructed images were created and reviewed. COMPARISON: No relevant prior studies available. FINDINGS: Right internal carotid artery: No acute findings. Intracranial segment is patent with no signif icant stenosis. No aneurysm. Right anterior cerebral artery: Unremarkable. No occlusion or significant stenosis. No aneury sm. Right middle cerebral artery: Unremarkable. No occlusion or significant stenosis. No aneurysm . Right posterior cerebral artery: Unremarkable. No occlusion or significant stenosis. No aneur ysm. Right vertebral artery: Unremarkable as visualized. Left internal carotid artery: No acute findings. Intracranial segment is patent with no signifi cant stenosis. No aneurysm. Left anterior cerebral artery: Unremarkable. No occlusion or significant stenosis. No aneurys m. Left middle cerebral artery: Unremarkable. No occlusion or significant stenosis. No aneurysm. Left posterior cerebral artery: origin left OPHTHALMOLOGIST. No occlusion or significant stenosis. No aneurysm. Left vertebral artery: Unremarkable as visualized. Basilar artery: Unremarkable. No occlusion or significant stenosis. No aneurysm. * A single impression for all exams can be found at the end of this report EXAM: CT Angiography Neck With Intravenous Contrast CLINICAL HISTORY: The patient is 83 years old and is Female; ams TECHNIQUE: Routine carotid CT angiography protocol was performed with intravenous contrast. NASCE T criteria using the distal ICAs for comparison were used for evaluation of stenoses. Sagittal and coronal reformatted images were created and reviewed. This CT exam was performed using one or m ore of the following dose reduction techniques: automated exposure control, adjustment of the mA and/or kV according to patient size, and/or use of iterative reconstruction technique. MIP reconstr ucted images were created and reviewed. COMPARISON: None. FINDINGS: Limitations: Evaluation limited by artifact. VASCULATURE: Right common carotid artery: Unremarkable. No occlusion or significant stenosis. No dissectio n. Right internal carotid artery: Unremarkable. Extracranial segment is patent with no occlusion o r significant stenosis. No dissection. Right external carotid artery: Unremarkable. No occlusion. Right vertebral artery: Unremarkable. No occlusion or significant stenosis. No dissection. Left common carotid artery: Unremarkable. No occlusion or significant stenosis. No dissection . Left internal carotid artery: Unremarkable. Extracranial segment is patent with no occlusion or significant stenosis. No dissection. Left external carotid artery: Unremarkable. No occlusion. Left vertebral artery: Unremarkable. No occlusion or significant stenosis. No dissection. NECK: Bones/joints: Unremarkable. No acute fracture. Soft tissues: Unremarkable. Lung apices: Clear. CAROTID STENOSIS REFERENCE USING NASCET CRITERIA: % ICA stenosis = (1 - narrowest ICA diameter/diameter of distal cervical ICA) x 100. Mild - <50% stenosis. Moderate - 50-69% stenosis. Severe - 70-94% stenosis. Near occlusion - 95-99% stenosis. Occluded - 100% stenosis. * A single impression for all exams can be found at the end of this report Due to temporary technical issues with the PACS/Rapport scribe reporting system, reports are being signed by the in-house radiologist without review as a courtesy to ensure prompt reporting the interpreting radiologist is fully responsible for the content of the report. Transcribed Date/Time: 08/02/2024 1:19 AM
--- NOTE | 2024-08-02 01:58 | RAD REPORT ---
EXAM: XR Chest, 1 View CLINICAL HISTORY: The patient is 83 years old and is Female; ams TECHNIQUE: Frontal view of the chest. COMPARISON: No relevant prior studies available. FINDINGS: Lungs: Unremarkable. No consolidation. Pleural space: Blunting of the left costophrenic angle which may indicate left pleural effusion. No pneumothorax. Heart: Unremarkable. Mediastinum: Unremarkable. Normal mediastinal contour. Bones/joints: No acute findings. IMPRESSION: XR Chest, 1 View: Blunting of the left costophrenic angle which may indicate left pleural effusion. Electronically signed by: Douglas James MD 08/02/2024 01:16 AM [facility] 8 Due to temporary technical issues with the PACS/[employer] Interactive reporting system, reports are being wilberto d by the in-house radiologist without review as a courtesy to ensure prompt reporting the interpreting radiologist is fully responsible for the content of the report. Transcribed Date/Time: 08/02/2024 1:58 AM
--- NOTE | 2024-08-02 05:00 | ER ---
Nurse's Notes [facility] Name: Sol Whittaker Age: 83 yrs Sex: Female : 1940 Arrival Date: 08/01/2024 Time: 23:10 Bed 3 Private MD: Diagnosis: Altered mental status, unspecified;Hypotension, unspecified Presentation: 08/01 23:32 Chief complaint: Patient was visiting daughter upstairs when she went unresponsive. cp4 Patient is alert to painful stimuli. Last known well was 2251. Coronavirus screen: Client denies travel out of the [place] in the last 14 days. At this time, the client does not indicate any symptoms associated with coronavirus-19. Ebola Screen: Patient negative for fever greater than or equal to 101.5 degrees Fahrenheit, and additional compatible Ebola Virus Disease symptoms Patient denies exposure to infectious person. Patient denies travel to an Ebola-affected area in the 21 days before illness onset. No symptoms or risks identified at this time. Initial Sepsis Screen: Does the patient meet any 2 criteria? No. Patient's initial sepsis screen is negative. Does the patient have a suspected source of infection? No. Patient's initial sepsis screen is negative. Risk Assessment: Do you want to hurt yourself or someone else? Patient reports no desire to harm self or others. Onset of symptoms was August 01, 2024. 23:32 Method Of Arrival: Stretcher cp4 23:32 Acuity: ANGELA 2 cp4 Triage Assessment: 23:36 General: Appears in no apparent distress. comfortable, Behavior is drowsy, cp4 uncooperative. Pain: Unable to use pain scale. Patient is unresponsive. EENT: No deficits noted. Neuro: Level of Consciousness is stuporous, Oriented to. Cardiovascular:. 23:39 Respiratory: Airway is patent Respiratory effort is even, unlabored. GI: No deficits cp4 noted. : No deficits noted. Derm: No deficits noted. Musculoskeletal: No deficits noted. Historical: - Allergies: 23:36 MING INHIBITORS; cp4 23:36 Codeine; cp4 23:36 metoclopramide HCl; cp4 23:36 sulfamethoxazole; cp4 23:36 TRIMETHOPRIM; cp4 - PMHx: 23:36 diabetes mellitus; Hypertensive disorder; cp4 - PSHx: 23:36 Appendectomy; Cholecystectomy; cp4 - Immunization history:: Adult Immunizations unknown. - Infectious Disease History:: Denies. - Social history:: Smoking status: unknown. Screenin:41 [facility] ED Fall Risk Assessment (Adult) History of falling in the last 3 months, cp4 including since admission No falls in past 3 months (0 pts) Confusion or Disorientation Yes (5 pts) Intoxicated or Sedated No (0 pts) Impaired Gait No (0 pts) Mobility Assist Device Used No (0 pt) Altered Elimination No (0 pt) Score/Fall Risk Level 3 or more points = High Risk Oriented to surroundings, Maintained a safe environment, Assessed \T\ reinforced patient's understanding of fall precautions, Hourly rounding (assess needs \T\ fall precautionary measures) done. Abuse screen: Denies threats or abuse. Denies injuries from another. Nutritional screening: No deficits noted. Tuberculosis screening: No symptoms or risk factors identified. 08/02 04:35 [place] Swallow Protocol Exclusion Criteria: Unable to remain alert for testing: Yes cp4 Notified: Shant Walters MD. Assessment: 08/01 23:41 Reassessment: Granddaughter states patient has her daughter's and her own medications cp4 in a box and is possible that she took the wrong medication. 08/02 00:30 Reassessment: Patient appears in no apparent distress at this time. Patient and/or cp4 family updated on plan of care and expected duration. Pain level reassessed. Reassessment:. 01:30 Reassessment: Patient appears in no apparent distress at this time. Patient and/or cp4 family updated on plan of care and expected duration. Pain level reassessed. 01:30 Reassessment: Patient appears in no apparent distress at this time. Patient and/or cp4 family updated on plan of care and expected duration. Pain level reassessed. Patient still sleeping. Arousable by painful stimuli. 04:35 Reassessment: Attempted to take patient off of levophed drip but pressure dropped cp4 again. Levophed restarted. 04:44 Reassessment: Patient trying to crawl out of bed. Patient speaking in garbled language. cp4 Tech sitting on patient. 04:55 Reassessment: Patient states she needs to pee. Patient changed and placed on purewick. cp4 Vital Signs: 08/01 23:39 BP 82 / 52; Pulse 63; Resp 16; Temp 98.4; Pulse Ox 100% ; Weight 81.65 kg; Height 5 ft. cp4 6 in. ; Pain 0/10; 08/02 00:15 BP 100 / 69; Pulse 60; Resp 16; Pulse Ox 98% on 2 lpm NC; cp4 00:39 BP 67 / 40; Pulse 63; Resp 16; Pulse Ox 97% ; cp4 01:20 BP 75 / 57; Pulse 66; Resp 16; Pulse Ox 96% ; cp4 01:31 BP 84 / 42; Pulse 75; Resp 16; Pulse Ox 96% ; cp4 01:59 BP 100 / 65; Pulse 71; Resp 16; Pulse Ox 97% ; cp4 03:15 BP 96 / 70; Pulse 69; Resp 15; Pulse Ox 95% ; cp4 03:45 BP 108 / 61; Pulse 65; Resp 15; Pulse Ox 96% ; cp4 04:06 BP 135 / 74; Pulse 72; Resp 15; Pulse Ox 100% ; cp4 04:34 BP 96 / 73; Pulse 65; Resp 15; Pulse Ox 99% ; cp4 04:55 BP 134 / 86; Pulse 70; Resp 15; Pulse Ox 100% ; cp4 05:16 BP 120 / 70; Pulse 88; Resp 15; Pulse Ox 100% ; cp4 05:41 BP 128 / 76; Pulse 71; Resp 14; Pulse Ox 100% ; cp4 06:23 BP 134 / 66; Pulse 67; Resp 15; Pulse Ox 100% on 2 lpm NC; cp4 06:32 BP 101 / 69; Pulse 64; Resp 14; Pulse Ox 100% ; cp4 06:58 BP 104 / 83; Pulse 68; Resp 14; Pulse Ox 99% ; cp4 08/01 23:39 Body Mass Index 29.05 (81.65 kg, 167.64 cm) cp4 08/01 23:39 Pain Scale: Adult cp4 ED Course: 08/01 23:20 Patient arrived in ED. vk 23:21 Shant Walters MD is Attending Physician. rt 23:28 EKG done, by ED staff. bf2 23:29 CT Stroke Brain w/o Contrast In Process Unspecified. EDMS 23:36 Triage completed. cp4 23:39 Arm band placed on right wrist. Patient placed in an exam room, on a stretcher. cp4 23:41 No provider procedures requiring assistance completed. Initial lab(s) drawn, by ED cp4 staff, sent to lab. Inserted saline lock: 20 gauge in right antecubital area, using aseptic technique. Blood collected. Flushed with 10 mL NS. 23:41 Bed in low position. Call light in reach. Side rails up X2. cp4 23:46 X-ray completed. Portable x-ray completed in exam room. Patient tolerated procedure mh1 well. 23:51 Stroke CXR 1 View In Process Unspecified. EDMS 0309 00:16 CT Head Angio In Process Unspecified. EDMS 00:17 CT Neck Angio In Process Unspecified. EDMS 03:15 Maricarmen Akbar is Primary Nurse. cp4 03:18 Inserted saline lock: 22 gauge in right forearm, using aseptic technique. Flushed with cp4 10 mL NS. 04:59 Rosalva Melo MD is Hospitalizing Provider. rt 06:16 Patient admitted, IV remains in place. cp4 06:17 Provided Education on: admission. cp4 Administered Medications: 08/01 23:28 Drug: Naloxone IVP 0.4 mg IVP once Route: IVP; Site: right forearm; 08/02 05:20 Follow up: Response: No adverse reaction cp4 00:41 Drug: NS 0.9% IV 1000 ml IV at 1 bolus Per protocol; to be given as a bolus over 60 cp4 minutes Route: IV; Rate: 1 bolus; Site: right antecubital; 05:20 Follow up: IV Status: Completed infusion cp4 01:13 Drug: Norepinephrine IV 0.1 mcg/kg/min IV at calculated rate See Administration cp4 Instructions; (Standard concentration 4 mg / 250 mL D5W); Recommended max rate 3 mcg/kg/min; Titrate 0.05 mcg/kg/min as often as every 5 minutes to achieve goal (see titration policy); Goal parameter MAP greater than 65 mmHg. Route: IV; Rate: calculated rate; Site: right antecubital; 01:13 Follow up: Rate change 5 mcg/min cp4 04:20 Follow up: Rate change mcg/min cp4 04:35 Follow up: Rate change 5 mcg/kg/min cp4 05:16 Follow up: Rate change 3 mcg/min cp4 05:45 Follow up: Rate change 2 mcg/min cp4 06:23 Follow up: Rate change 1 mcg/min cp4 07:00 Follow up: Response: No adverse reaction; IV Status: Infusion continued upon admission jl7 Medication: 08/01 23:41 VIS not applicable for this client. cp4 Outcome: 08/02 05:00 Decision to Hospitalize by Provider. rt 06:16 Admitted to ER Hold. Please see [facility] for further documentation. cp4 06:16 Condition: stable 06:16 Instructed on the need for admit, 13:04 Patient left the ED. ap3 Signatures: Dispatcher [employer] EDMS Vivian Walters RN RN Shi Iverson 1 Tiffany Pierce RN RN jl7 Kathie Ag RN RN ap3 Shant Walters MD MD rt Maricarmen Akbar cp4 Cassandra Azar Britnie bf2 Corrections: (The following items were deleted from the chart) 08/01 23:40 23:32 BP 82 / 52; Pulse 56bpm; Resp 16bpm; EtCO2 100 mmHg; Temp 98.4F; 77.11 kg; Height cp4 5 ft. 6 in.; BMI: 27.4; cp4
--- NOTE | 2024-08-02 05:01 | EDPHYS ---
Physician Documentation [facility] Name: Sol Whittaker Age: 83 yrs Sex: Female : 1940 Arrival Date: 08/01/2024 Time: 23:10 Bed 3 Private MD: ED Physician Shant Walters HPI: 08/02 01:43 This 83 yrs old Female presents to ER via Stretcher with complaints of Unresponsive. rt 01:43 Patient presents to the ED with loss of consciousness. The patient reportedly was rt seeing her daughter who is upstairs with a broken hip, became lightheaded, lost consciousness. The patient's granddaughter states that she may have intermittently taken a medicine that was not hers. She was noted to have pinpoint pupils. No other history could be elicited, symptoms are moderate in severity, no other aggravating elevating factors.. Historical: - Allergies: 08/01 23:36 MING INHIBITORS; cp4 23:36 Codeine; cp4 23:36 metoclopramide HCl; cp4 23:36 sulfamethoxazole; cp4 23:36 TRIMETHOPRIM; cp4 - PMHx: 23:36 diabetes mellitus; Hypertensive disorder; cp4 - PSHx: 23:36 Appendectomy; Cholecystectomy; cp4 - Immunization history:: Adult Immunizations unknown. - Infectious Disease History:: Denies. - Social history:: Smoking status: unknown. ROS: 03 01:43 Unable to obtain ROS due to altered mental status, rt Exam: 01:43 Constitutional: The patient appears Somnolent rt 01:43 Eyes: Pupils constricted, pinpoint. 01:43 ECG was reviewed by the Attending Physician. 01:43 Neuro: Somnolent, moves all 4 extremities to noxious stimuli,, 01:48 Cardiovascular: Regular rate and rhythm with a normal S1 and S2. No gallops, murmurs, rt or rubs. Normal PMI, no JVD. No pulse deficits. Respiratory: Lungs have equal breath sounds bilaterally, clear to auscultation and percussion. No rales, rhonchi or wheezes noted. No increased work of breathing, no retractions or nasal flaring. Abdomen/GI: Soft, non-tender, with normal bowel sounds. No distension or tympany. No guarding or rebound. No evidence of tenderness throughout. Skin: Warm, dry with normal turgor. Normal color with no rashes, no lesions, and no evidence of cellulitis. MS/ Extremity: Pulses equal, no cyanosis. Neurovascular intact. Full, normal range of motion. Vital Signs: 08/01 23:39 BP 82 / 52; Pulse 63; Resp 16; Temp 98.4; Pulse Ox 100% ; Weight 81.65 kg; Height 5 ft. cp4 6 in. ; Pain 0/10; 08/02 00:15 BP 100 / 69; Pulse 60; Resp 16; Pulse Ox 98% on 2 lpm NC; cp4 00:39 BP 67 / 40; Pulse 63; Resp 16; Pulse Ox 97% ; cp4 01:20 BP 75 / 57; Pulse 66; Resp 16; Pulse Ox 96% ; cp4 01:31 BP 84 / 42; Pulse 75; Resp 16; Pulse Ox 96% ; cp4 01:59 BP 100 / 65; Pulse 71; Resp 16; Pulse Ox 97% ; cp4 03:15 BP 96 / 70; Pulse 69; Resp 15; Pulse Ox 95% ; cp4 03:45 BP 108 / 61; Pulse 65; Resp 15; Pulse Ox 96% ; cp4 04:06 BP 135 / 74; Pulse 72; Resp 15; Pulse Ox 100% ; cp4 04:34 BP 96 / 73; Pulse 65; Resp 15; Pulse Ox 99% ; cp4 04:55 BP 134 / 86; Pulse 70; Resp 15; Pulse Ox 100% ; cp4 05:16 BP 120 / 70; Pulse 88; Resp 15; Pulse Ox 100% ; cp4 05:41 BP 128 / 76; Pulse 71; Resp 14; Pulse Ox 100% ; cp4 06:23 BP 134 / 66; Pulse 67; Resp 15; Pulse Ox 100% on 2 lpm NC; cp4 06:32 BP 101 / 69; Pulse 64; Resp 14; Pulse Ox 100% ; cp4 06:58 BP 104 / 83; Pulse 68; Resp 14; Pulse Ox 99% ; cp4 08/01 23:39 Body Mass Index 29.05 (81.65 kg, 167.64 cm) cp4 08/01 23:39 Pain Scale: Adult cp4 MDM: 08/01 23:21 Medical Screening Exam initiated rt 08/02 05:05 Differential Diagnosis Polypharmacy, hypotension, syncope, dysrhythmia. Data reviewed: rt vital signs, nurses notes, lab test result(s), EKG, radiologic studies. Consideration of Admission/Observation Patient was admitted/placed on observation. Management of patient was discussed with the following: Hospitalist: Agrees to admit. I considered the following discharge prescriptions or medication management in the emergency department Medications were administered in the Emergency Department. See MAR. Independent interpretation of the following test(s) in the Emergency Department CT Scan: My interpretation is No intracranial hemorrhage syndrome interpretation of CT scan images. Care significantly affected by the following chronic conditions: Diabetes. Counseling: I had a detailed discussion with the patient and/or guardian regarding the historical points, exam findings, and any diagnostic results supporting the discharge/admit diagnosis, lab results, radiology results, the need for further work-up and treatment in the hospital. Response to treatment: the patient's symptoms have mildly improved after treatment. 08/01 23:22 Order name: Basic Metabolic Panel; Complete Time: 00:07 rt 08/01 23:22 Order name: CBC with Diff; Complete Time: 23:56 rt 08/01 23:22 Order name: Hepatic Function; Complete Time: 00:07 rt 08/01 23:22 Order name: High Sensitivity Troponin; Complete Time: 00:07 rt 08/01 23:22 Order name: Protime (+inr); Complete Time: 00:07 rt 08/01 23:22 Order name: Ptt, Activated; Complete Time: 00:07 rt 08/01 23:33 Order name: Glucose, Ancillary Testing; Complete Time: 23:56 EDMS 08/02 03:59 Order name: UAM rt 08/02 03:59 Order name: UDS rt 08/02 04:52 Order name: Glucose, Ancillary Testing EDMS 08/02 05:36 Order name: Basic Metabolic Panel EDMS 08/02 05:36 Order name: CBC with Automated Diff EDMS 08/02 05:36 Order name: Lactate w/ 2H reflex if indic. EDMS 08/02 05:36 Order name: Thyroid Stimulating Hormone EDMS 08/02 05:36 Order name: Troponin High Sensitivity EDMS 08/02 05:36 Order name: Troponin High Sensitivity EDMS 08/02 05:36 Order name: Troponin High Sensitivity EDMS 08/02 05:36 Order name: Troponin High Sensitivity EDMS 08/02 05:42 Order name: Procalcitonin EDMS 08/01 23:22 Order name: CT Head Angio rt 08/01 23:22 Order name: CT Neck Angio rt 08/01 23:22 Order name: CT Stroke Brain w/o Contrast rt 08/01 23:22 Order name: Stroke CXR 1 View rt 08/01 23:22 Order name: Accucheck; Complete Time: 23:31 rt 08/01 23:22 Order name: Cardiac monitoring; Complete Time: 23:31 rt 08/01 23:22 Order name: EKG - Nurse/Tech; Complete Time: 23:31 rt 08/01 23:22 Order name: IV Saline Lock; Complete Time: 23:31 rt 03 23:22 Order name: Labs collected and sent; Complete Time: 23:31 rt 08/01 23:22 Order name: NPO; Complete Time: 23:31 rt 08/01 23:22 Order name: O2 Per Protocol; Complete Time: 23:31 rt 08/01 23:22 Order name: O2 Sat Monitoring; Complete Time: 23:31 rt 08/01 23:22 Order name: Stroke Swallow Screen; Complete Time: 06:29 rt EC:43 Rate is 64 beats/min. Rhythm is regular, Normal Sinus Rhythm with No ectopy. QRS [place] rt is Normal. IL interval is normal. QRS interval is normal. QT interval is normal. No Q waves. T waves are Normal. No ST changes noted. Interpreted by me. Administered Medications: 08/01 23:28 Drug: Naloxone IVP 0.4 mg IVP once Route: IVP; Site: right forearm; 08/02 05:20 Follow up: Response: No adverse reaction cp4 00:41 Drug: NS 0.9% IV 1000 ml IV at 1 bolus Per protocol; to be given as a bolus over 60 cp4 minutes Route: IV; Rate: 1 bolus; Site: right antecubital; 05:20 Follow up: IV Status: Completed infusion cp4 01:13 Drug: Norepinephrine IV 0.1 mcg/kg/min IV at calculated rate See Administration cp4 Instructions; (Standard concentration 4 mg / 250 mL D5W); Recommended max rate 3 mcg/kg/min; Titrate 0.05 mcg/kg/min as often as every 5 minutes to achieve goal (see titration policy); Goal parameter MAP greater than 65 mmHg. Route: IV; Rate: calculated rate; Site: right antecubital; 01:13 Follow up: Rate change 5 mcg/min cp4 04:20 Follow up: Rate change mcg/min cp4 04:35 Follow up: Rate change 5 mcg/kg/min cp4 05:16 Follow up: Rate change 3 mcg/min cp4 05:45 Follow up: Rate change 2 mcg/min cp4 06:23 Follow up: Rate change 1 mcg/min cp4 07:00 Follow up: Response: No adverse reaction; IV Status: Infusion continued upon admission [id number] Disposition Summary: 08/02/24 05:00 Hospitalization Ordered Notes: Hospitalization Status: Inpatient Admission rt Provider: Rosalva Melo rt Location: Intensive Care Unit rt Condition: Serious rt Problem: new rt Symptoms: have improved rt Bed/Room Type: Standard rt Room Assignment: 2-(08/02/24 11:17) bc6 Diagnosis - Altered mental status, unspecified rt - Hypotension, unspecified rt Forms: - Medication Reconciliation Form rt - SBAR form rt - Leadership Thank You Letter rt Critical care time excluding procedures: 05:05 Critical care time: Bedside Care: 30 minutes, Consultation: 5 minutes. Total time: 35 rt minutes Signatures: Dispatcher [employer] EDVivian Reyna RN RN kl [place], Ryan, MD MD rt Ivory Celeste bc6 Maricarmen Akbar cp4 Tiffany Pierce RN jl7 Corrections: (The following items were deleted from the chart) 08/01 23:23 23:23 BASIC METABOLIC PANEL+C.LAB.BRZ ordered. EDMS EDMS 23:23 23:23 CBC+H.LAB.BRZ ordered. EDMS EDMS 23:23 23:23 HEPATIC FUNCTION+C.LAB.BRZ ordered. EDMS EDMS 23:23 23:23 Troponin High Sensitivity+C.LAB.BRZ ordered. EDMS EDMS 23:23 23:23 PROTIME (+INR)+COAG.LAB.BRZ ordered. EDMS EDMS 23:23 23:23 PTT, ACTIVATED+COAG.LAB.BRZ ordered. EDMS EDMS 23:23 23:23 Head Angio+CT.RAD.BRZ ordered. EDMS EDMS 23:23 23:23 Neck Angio+CT.RAD.BRZ ordered. EDMS EDMS 23:23 23:23 CT-STROKE BRAIN W/O CONTRAST+CT.RAD.BRZ ordered. EDMS EDMS 23:23 Chest Single View+RAD.RAD.BRZ ordered. EDMS EDMS 08/02 06:09 05:00 rt kl 06:16 06:09 7- kl kl 11:17 06:16 bc6
[2024-08-02] MEDS ORDERED: ONDANSETRON 4 MG/2 ML VIAL IV PRN (05:30)
[2024-08-02] MEDS ORDERED: ACETAMINOPHEN 500 MG TAB PO PRN (05:30)
--- NOTE | 2024-08-02 05:40 | P.HP ---
Patient History Date of Service: 08/02/24 History of Present Illness: Is an 83-year-old female with a past medical history of diabetes and hypertension who is visiting her daughter here in the hospital when she lost consciousness and a rapid response was called. She was taken to the ED for further evaluation. Head CT was negative. She was found to be hypotensive and bolused with fluids and eventually placed on Levophed. EKG showed no acute changes. As per my discussion with nursing staff she may have accidentally taken her daughter's medication. Allergies MING Inhibitors Allergy (Verified 11/30/13 12:43) Shortness of breath codeine Adverse Reaction (Verified 11/30/13 12:43) Shortness of breath metoclopramide HCl [From Reglan] Adverse Reaction (Verified 11/30/13 12:43) Itching sulfamethoxazole [From Septra] Adverse Reaction (Verified 11/30/13 12:43) Nausea/Vomiting trimethoprim [From Septra] Adverse Reaction (Verified 11/30/13 12:43) Nausea/Vomiting Review of Systems is unable to be obtained Physical Examination - Physical Exam General: Confused HEENT: Normocephalic Neck: Supple Respiratory: Clear to auscultation bilaterally Cardiovascular: No edema Capillary refill: <2 Seconds Gastrointestinal: Normal bowel sounds Musculoskeletal: No clubbing Integumentary: No rashes Neurological: Abnormal speech Lymphatics: No axilla or inguinal lymphadenopathy - Studies Laboratory Data (last 24 hrs) 08/01/24 08/01/24 08/01/24 23:30 23:30 23:30 WBC 6.30 Hgb 11.8 L Hct 35.8 L Plt Count 207 PT 10.8 INR 0.94 APTT 30.0 Sodium 138 Potassium 3.8 BUN 27 H Creatinine 1.21 H Glucose 151 H Total Bilirubin 0.3 AST 13 L ALT 23 Alkaline Phosphatase 77 Assessment and Plan - Plan Loss of consciousness Acute metabolic encephalopathy Hypotension Left pleural effusion Type 2 diabetes Hypertension Elevated creatinine She was given fluids now on Levophed Wean levo as able Naloxone given Sliding scale insulin Lactic acid pending Urine drug screen pending Urinalysis pending CTA head and neck without any acute abnormality Chest x-ray and head CT without any acute abnormality Procalcitonin pending DVT prophylaxis with SCDs - Advance Directives Does patient have a Living Will: No Does patient have a Durable POA for Healthcare: No
[2024-08-02] MEDS: NA CHLORIDE 0.9% 1,000 ML IV SCH (05:53)
[2024-08-02 07:27] LABS: Absolute Eosinophils 0.4 K/uL (0-0.5); Absolute Lymphocytes (CBC) 2.3 K/uL (0.7-4.9); Absolute Monocytes 0.4 K/uL (0.1-1.3); Absolute Neutrophil 3.5 K/uL (1.8-8.0); Basophils % 0.5 % (0-1.3); Eosinophils % 5.6 % (0-4.4); Hematocrit 35.6 % (36.0-45.0); Hemoglobin 11.8 g/dL (12.0-15.0); Lymphocytes % 34.8 % (15.3-44.8); MCH 29.3 pg (27.0-35.0); MCV 88.8 fL (80-100); MPV 9.8 fL (7.6-11.3); Monocytes % 6.6 % (3.3-12.3); Neutrophils % 52.5 % (41.7-73.7); Nucleated Red Blood Cells % 0.1 % (0-0); Platelets 210 thou/uL (152-406); RBC Red Blood Cell Count 4.01 M/uL (3.86-4.86); Red Cell Distribution Width 13.3 % (12.1-15.2)
[2024-08-02 07:32] LABS: Anion Gap 7.1 mEq/L (5.0-15.0); Potassium 4.1 mEq/L (3.5-5.1); Thyroid Stimulating Hormone 0.961 uIU/mL (0.358-3.740)
[2024-08-02 13:10] VITALS: BMI 25.9
[2024-08-02] MEDS ORDERED: PHENOL 1.4% ORAL SPRAY 180ML MM PRN (14:35)
[2024-08-02 16:00] LABS: Sqamous Epithelial None Seen /HPF (None Seen); Urine Bacteria <20 /HPF (<20); Urine Bilirubin NEGATIVE (Negative); Urine Blood Trace (Negative); Urine Clarity Extremely Turbid (Clear); Urine Color Light-Yellow (Yellow); Urine Culture Reflex Order REFLEXED; Urine Glucose NEGATIVE (Negative); Urine Ketones NEGATIVE (Negative); Urine Micro Reflex YN NO BILL MICROSCOPIC; Urine Nitrite NEGATIVE (Negative); Urine Protein NEGATIVE (Negative); Urine RBC <5 /HPF (None Seen); Urine Urobilinogen Normal (Normal); Urine WBC >50 /HPF (<5); Urine WBC Clump Rare /HPF (None Seen)
[2024-08-02 16:04] LABS: Barbiturates NEGATIVE (NEGATIVE); Benzodiazepines NEGATIVE (NEGATIVE); Cocaine NEGATIVE (NEGATIVE); METHAMPHETAM NEGATIVE (NEGATIVE); Methadone NEGATIVE (NEGATIVE); Opiates NEGATIVE (NEGATIVE); Phencyclidine NEGATIVE (NEGATIVE); THC Cannibis NEGATIVE (NEGATIVE)
[2024-08-02 16:07] LABS: Arterial Blood Carboxyhemoglob 0.4 % (0-1.5); Blood Gas Oxyhemoglobin 96.2 % (94-97); Blood Gas THB 12.3 g/dl (12-18); Blood O2 Saturation 97.6 % (92-98.5)
[2024-08-02] MEDS: Mupirocin NASAL 2 APPL/1 GM TUBE NAS SCH (21:00)
[2024-08-02 21:45] LABS: Arterial Blood Carboxyhemoglob 0.7 % (0-1.5); Blood Gas Oxyhemoglobin 96.6 % (94-97); Blood Gas THB 11.8 g/dl (12-18); Blood O2 Saturation 98.4 % (92-98.5)
--- NOTE | 2024-08-03 00:06 | P.PN ---
Subjective Date of Service: 08/02/24 Patient is lethargic and difficult to arouse. She responds to painful stimuli. Patient was found to be hypercapnic and BiPAP placed. Review of Systems 10-point ROS is otherwise unremarkable Physical Examination - Vital Signs Temperature: 97.1 F Blood Pressure: 115/77 Pulse: 66 Respirations: 18 Pulse Ox (%): 100 - Physical Exam General: Other ( Lethargic and difficult to arouse) HEENT: Atraumatic, PERRLA, EOMI Neck: Supple, JVD not distended Respiratory: Diminished ( but otherwise clear) Cardiovascular: Regular rate/rhythm, Normal S1 S2, No murmurs Gastrointestinal: Normal bowel sounds, Soft and benign, Non-distended, No tenderness Musculoskeletal: No clubbing, No swelling, No tenderness Neurological: Sensation intact, Cranial nerves 3-12 intact - Studies Laboratory Data (last 24 hrs) 08/01/24 08/01/24 08/01/24 23:30 23:30 23:30 WBC 6.30 Hgb 11.8 L Hct 35.8 L Plt Count 207 PT 10.8 INR 0.94 APTT 30.0 Sodium 138 Potassium 3.8 BUN 27 H Creatinine 1.21 H Glucose 151 H Total Bilirubin 0.3 AST 13 L ALT 23 Alkaline Phosphatase 77 Medications List Reviewed: Yes Assessment & Plan - Problems (Diagnosis) (1) Acute hypercapnic respiratory failure Current Visit: Yes Status: Acute (2) Accidental overdose Current Visit: Yes Status: Acute - Plan Plan: 1. Acute hypercapnic respiratory her. Repeat ABGs in the morning. ABGs have shown improvement. Continue with monitoring respiratory status . Continue with nebs as needed and IV steroids. Continue with aggressive IV hydration. 2. Accidental overdose; concerns that patient took her daughter's medications and is unresponsive at this time. Continue with monitoring clinical status. Discharge Plan: Home Plan to discharge in: Greater than 2 days - Advance Directives Does patient have a Living Will: No Does patient have a Durable POA for Healthcare: No - Code Status/Comfort Care Code Status Assessed: Yes Code Status: Full Code Critical Care: Yes Time Spent Managing PTS Care (In Minutes): 35
[2024-08-03 00:49] LABS: Troponin High Sensitivity 7.7 pg/mL (<58.9)
[2024-08-03 08:02] LABS: Anion Gap 11.9 mEq/L (5.0-15.0); Potassium 4.9 mEq/L (3.5-5.1)
[2024-08-03] MEDS: ROSUVASTATIN 10 MG TAB PO SCH (08:31)
[2024-08-03] MEDS: CITALOPRAM 10 MG TABLET PO SCH (08:31)
[2024-08-03] MEDS: GABAPENTIN 300 MG CAP PO SCH (08:31)
[2024-08-03] MEDS: LOSARTAN POTASSIUM 50 MG TABLET PO SCH (08:31)
[2024-08-03] MEDS: BUSPIRONE HCL 15 MG TABLET PO SCH (08:31)
[2024-08-03 08:47] LABS: Absolute Eosinophils 0.4 K/uL (0-0.5); Absolute Lymphocytes (CBC) 2.1 K/uL (0.7-4.9); Absolute Monocytes 0.6 K/uL (0.1-1.3); Absolute Neutrophil 6.5 K/uL (1.8-8.0); Basophils % 0.3 % (0-1.3); Eosinophils % 4.3 % (0-4.4); Hematocrit 39.1 % (36.0-45.0); Hemoglobin 12.8 g/dL (12.0-15.0); MCH 29.2 pg (27.0-35.0); MCHC 32.6 g/dL (32.0-36.0); MCV 89.5 fL (80-100); MPV 9.9 fL (7.6-11.3); Monocytes % 6.6 % (3.3-12.3); Neutrophils % 66.8 % (41.7-73.7); Nucleated Red Blood Cells % 0.1 % (0-0); Platelets 196 thou/uL (152-406); RBC Red Blood Cell Count 4.37 M/uL (3.86-4.86); Red Cell Distribution Width 13.7 % (12.1-15.2)
[2024-08-03 09:52] VITALS: O2SAT 99
--- NOTE | 2024-08-03 11:31 | RAD REPORT ---
EXAMINATION: XR Foot Right 2 View CLINICAL INDICATION: Female, 83 years old. [facility] MAIN foot pain TECHNIQUE: 3 view radiographs of the left foot were obtained. COMPARISON: No prior exam. FINDINGS: No evidence of fracture or dislocation. Normal alignment. No evidence of arthropathy or oth er focal bone lesion. Soft tissues are unremarkable. Moderate to advanced degenerative changes most notably at the midfoot articulations. Moderate calcaneal spur. Enthesopathy at the Achilles tendon at tachment. IMPRESSION: No acute or significant abnormalities. Degenerative changes as above.
[2024-08-03 12:59] VITALS: TEMP 97.8
[2024-08-03 15:50] VITALS: BP 139/94
--- NOTE | 2024-08-04 11:08 | EKG ---
Test Date: 2024-08-01 Test Time: 23:25:36 E/M Engineer: CURTIS MEASUREMENT RESULTS: Intervals: Rate: 64 WV: 204 QRSD: 82 QT: 434 QTc: 447 [place]: P: 76 WV: 204 QRS: 81 T: 60 INTERPRETIVE STATEMENTS: Normal sinus rhythm Normal ECG Compared to ECG 10/31/2021 11:12:03 Ventricular premature complex(es) no longer present Electronically Signed On 08-04-24 11:01:42 CDT by Omar Meier
--- NOTE | 2024-08-07 12:02 | P.DS ---
Discharge Date: 08/03/24 Disposition: ROUTINE DISCHARGE Discharge Condition: GOOD - Problems (1) Acute hypercapnic respiratory failure Status: Acute (2) Accidental overdose Status: Acute Brief History of Present Illness: Is an 83-year-old female with a past medical history of diabetes and hypertension who is visiting her daughter here in the hospital when she lost consciousness and a rapid response was called. She was taken to the ED for further evaluation. Head CT was negative. She was found to be hypotensive and bolused with fluids and eventually placed on Levophed. EKG showed no acute changes. As per my discussion with nursing staff she may have accidentally taken her daughter's medication. Hospital Course: Patient accidentally ingested her daughter's pills. After IV hydration she woke up patient was doing much better. Patient improved much quicker than anticipated. She was unresponsive on arrival and she had the additional overdose that led her unresponsive. She met inpatient criteria at that time. Currently, she is more awake and alert and ambulating without difficulty. She did have some pain in her ankle for which we x-rayed which looked normal. At this time patient is doing well and stable for discharge home. Vital Signs/Physical Exam: Temp Pulse Resp BP Pulse Ox 97.8 F 93 H 25 H 139/94 H 99 08/03/24 12:00 08/03/24 15:00 08/03/24 15:00 08/03/24 15:00 08/03/24 15:00 General: Alert, In no apparent distress, Oriented x3 Laboratory Data at Discharge: WBC 9.70 thou/uL (4.3-10.9) 08/03/24 08:10 Hgb 12.8 g/dL (12.0-15.0) D 08/03/24 08:10 Hct 39.1 % (36.0-45.0) 08/03/24 08:10 Plt Count 196 thou/uL (152-406) 08/03/24 08:10 PT 10.8 SECONDS (10-13.0) 08/01/24 23:30 INR 0.94 08/01/24 23:30 APTT 30.0 SECONDS (27.2-37.4) 08/01/24 23:30 Sodium 143 mEq/L (136-145) 08/03/24 07:24 Potassium 4.9 mEq/L (3.5-5.1) D 08/03/24 07:24 BUN 9 mg/dL (7-18) 08/03/24 07:24 Creatinine 0.76 mg/dL (0.55-1.02) 08/03/24 07:24 Glucose 93 mg/dL (74-106) 08/03/24 07:24 Magnesium 2.0 mg/dL (1.6-2.4) 08/03/24 00:10 Total Bilirubin 0.3 mg/dL (0.2-1.0) 08/01/24 23:30 AST 13 U/L (15-37) L 08/01/24 23:30 ALT 23 U/L (13-56) 08/01/24 23:30 Alkaline Phosphatase 77 U/L (45-117) 08/01/24 23:30 Home Medications: Buspirone HCl 15 mg PO DAILY 08/02/24 Citalopram [Celexa*] 20 mg PO DAILY 08/02/24 Estradiol [Estrace] 08/02/24 Gabapentin 300 mg PO DAILY 08/02/24 Lansoprazole [Prevacid] 30 mg PO DAILY 08/02/24 Losartan Potassium 25 mg PO DAILY 08/02/24 Metformin HCl 500 mg PO BID 08/02/24 Rosuvastatin [Crestor*] 20 mg PO DAILY 08/02/24 Tramadol HCl 25 mg PO Q12H PRN #10 tab 08/03/24 predniSONE [Deltasone] 20 mg PO DAILY #5 tab 08/03/24 New Medications: predniSONE [Deltasone] 20 mg PO DAILY #5 tab Tramadol HCl 25 mg PO Q12H PRN #10 tab PRN Reason: Pain Scale 8-10 (Severe) Physician Discharge Instructions: PROBLEM: Accidental Overdose GOAL: Clear understanding of disease process INSTRUCTIONS:make sure to keep meds and labeled Diet: Regular Activity: Fall precautions DME DME: Date Ordered: Name of Company: [employer] Services Needed: Name of Company: Date or Referral: IMMUNIZATION Influenza Vaccine Indicated: No Influenza Vaccine Given: Date Given: Pneumonia Vaccine Indicated: No Pneumonia Vaccine Given: Date Given: Diet:Regular Activity:Fall precautions PHYSICIAN'S DISCHARGE INSTRUCTIONS -DC IV and DC home -Follow-up with PCP in 1 to 2 weeks -Please call Dr. Delvalle at [phone] if any questions regarding hospital stay -Please call nursing station at [phone] if any nursing or medication questions -Return to the emergency room if symptoms worsen Diet: Regular Activity: Fall precautions Followup: Fabio Lucas, [Primary Care Provider] - Time spent managing pt's care (in minutes): 35
== END 2024-08-03 15:25 | disposition home or self-care (01) | DRG 917 ==
LOC: ER 23:10 → ERHOLD 08-02 05:30 → 3RD-ICU 08-02 12:28
PROVIDERS: ADMIT Family Medicine; ATTEND Hospitalist
PROC: 4A033R1 Measurement of Arterial Saturation, Peripheral, Percutaneous Approach (ICD-10-PCS; principal; 2024-08-02)
PROC: 5A09457 Assistance with Respiratory Ventilation, 24-96 Consecutive Hours, Continuous Positive Airway Pressure (ICD-10-PCS; 2024-08-02)
PROC: 02HV33Z Insertion of Infusion Device into Superior Vena Cava, Percutaneous Approach (ICD-10-PCS; 2024-08-02)
PROC: 0T9B70Z Drainage of Bladder with Drainage Device, Via Natural or Artificial Opening (ICD-10-PCS; 2024-08-02)
PROC: 3E043XZ Introduction of Vasopressor into Central Vein, Percutaneous Approach (ICD-10-PCS; 2024-08-02)
DX: T50.901A Poisoning by unspecified drugs, medicaments and biological substances, accidental (unintentional), initial encounter (principal); G93.41 Metabolic encephalopathy; J96.02 Acute respiratory failure with hypercapnia; I10 Essential (primary) hypertension; E11.9 Type 2 diabetes mellitus without complications; Z88.5 Allergy status to narcotic agent; Z88.8 Allergy status to other drugs, medicaments and biological substances; Z90.49 Acquired absence of other specified parts of digestive tract; Z79.52 Long term (current) use of systemic steroids; Z79.84 Long term (current) use of oral hypoglycemic drugs; Z79.899 Other long term (current) drug therapy
CPT/HCPCS: 36415; 36600; 70450; 70496; 70498; 71045; 80048; 80076; 80307; 81001; 82550; 82805; 82947; 83605; 83735; 84145; 84443; 84484; 85025; 85610; 85730; 87077; 87086; 87088; 87186; 93005; 94660; 96361; 96365; 96366; 96375; 99291; 99292; J2310; J7030; Q9967

== ENCOUNTER 2025-01-15 14:26 | Emergency (ER) | payer OTHER ==
--- OUTSIDE RECORDS SUMMARY | 2025-01-15 14:48 | XMS REPORT | Continuity of Care Document ---
Author Name Unknown Address [address] [facility] [place] [address] [facility] Address [address] [facility] [place] [address] Care Team Providers Care Chaser Tar Name Role Phone Fabio Lucas Primary Care Physician [phone] Fabio Lucas Attending Clinician Unavailable Shirley MAR Attending Clinician Unavailable Elsy Rosado Attending Clinician Unavailable Doctor Unassigned, [place] Attending Clinician U eduin Napoles MD, Crow Macias Attending Clinician [phone] [place] Attending Clinician Unavailabl e [place] Attending Clinician Unavailabl e Payers Payer Name Policy Type Policy Number Effective Date Expiration Date Source Aetna Supplement Plan C1 [id number] 2018 00:00:00 [facility] MEDICARE NOVITAS MB [id number] 2007 00:00:00 [facility] Problems Condition Name Condition Details Condition Category Status Onset Date Resolution Date Last Treatment Date Treating Clinician Comments Source [id number] Chronic cystitis Problem [facility] [id number] Asymptomat ic bacteriuri a Problem [facility] [id number] Congenital meatal stenosis Problem [facility] [id number] Lesion of bladder Problem [facility] [id number] Recurrent UTI Problem [facility] Aphthous ulcer of mouth Canker sores oral Problem [facility] [id number] Bilateral carpal tunnel syndrome Problem [facility] [id number] Type 2 diabetes mellitus with diabetic chronic kidney disease Problem [facility] [id number] Stage 3a chronic kidney disease (CKD) Problem [facility] [id number] Environmen rashad allergies Problem [facility] [id number] JIMBO (generaliz ed anxiety disorder) Problem [facility] [id number] Type 2 diabetes mellitus with other diabetic kidney complicati on Problem [facility] [id number] Moderate major depression , single episode Problem [facility] Type II diabetes mellitus without complicati on Controlled type 2 diabetes mellitus without complicati on, without long-term current use of insulin Problem [facility] [id number] Pain in right knee Problem [facility] [id number] Left arm pain Problem [facility] [id number] Other chronic pain Problem [facility] [id number] Abnormal laboratory test result Problem [facility] [id number] Bladder wall thickening Problem [facility] [id number] Acute cystitis with hematuria Problem [facility] 450246760 Microscopi c hematuria Problem [facility] 152400356 History of recurrent UTIs Problem [facility] [id number] Depression with anxiety Problem [facility] Gastroesop hageal reflux disease Gastroesop hageal reflux disease, esophagiti s presence not specified Problem [facility] [id number] Abnormal kidney function Problem [facility] [id number] Anemia, unspecifie d type Problem [facility] Hypertensi on Hypertensi on, unspecifie d type Problem [facility] [id number] 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 Problem [facility] Hyperlipid emia Hyperlipid emia, unspecifie d hyperlipid emia type Problem [facility] Low back pain Low back pain Problem [facility] 78921136 Pain of lower extremity, unspecifie d laterality Problem [facility] [id number] Carotid atheroscle rosis, unspecifie d laterality Problem [facility] 991977965 Difficulty sleeping Problem [facility] 47023023 Diminished pulses in lower extremity Problem [facility] 02129896 Motion sickness, sequela Problem [facility] 642234158 Leukocytos is, unspecifie d type Problem [facility] [id number] 129207 Pain of left thumb Problem [facility] 153323718 Seasonal allergic rhinitis, unspecifie d trigger Problem [facility] [id number] 59128 Right hip pain Problem [facility] 541405178 Right leg pain Problem [facility] 19985360 Bacterial infection of knee joint Problem [facility] 26807028 Oral thrush Problem [facility] 48549454 Polyarthra lgia Problem [facility] [id number] Dizziness Problem [facility] Allergies, Adverse Reactions, Alerts Allergy Name Allergy Type Status Severity Reaction(s) Onset Date Inactive Date Treating Clinician Comments Source Metoclop ramide Propensi ty to adverse reaction s Active Unknown - See comments 10-02 00:00: 00 Grinding teeth [facility] Sulfa (Sulfona mide Antibiot ics) Propensi ty to adverse reaction s Active Unknown - See comments 10-02 00:00: 00 Upset stomach [facility] METOCLOP RAMIDE DRUG INGREDI Active Unknown-Cmnt 10-02 00:00: 00 [facility] RANJIT INHIBITO RS Drug Class Active Unknown-Cmnt 10-02 00:00: 00 [facility] CODEINE DRUG INGREDI Active Unknown-Cmnt 10-02 00:00: 00 [facility] SULFA (SULFONA MIDE ANTIBIOT ICS) Drug Class Active Unknown-Cmnt 10-02 00:00: 00 [facility] Rajnit Inhibito rs Propensi ty to adverse reaction s Active Unknown - See comments 10-02 00:00: 00 Scratchy throat [facility] Codeine Propensi ty to adverse reaction s Active Unknown - See comments 10-02 00:00: 00 hypervent ilate [facility] NO KNOWN ALLERGIE S Drug Class Active [facility] metoclop ramide metoclop ramide Active Unknown [facility] sulfamet hoxazole / trimetho prim sulfamet hoxazole / trimetho prim Active Unknown [facility] Social History Social Habit Start Date Stop Date Quantity Comments Source Sexual orientation [facility] History of Tobacco Use [facility] History of Social function 2023-10-03 00:00:00 2023-10-03 00:00:00 [facility] Sex assigned at 1940 00:00:00 1940 00:00:00 [facility] Smoking Status Start Date Stop Date Source Former Smoker 2024-12-29 00:00:00 2024-12-29 00:00:00 [facility] Never Smoker [facility] Tobacco smoking consumption unknown [facility] Medications Ordered Medication Name Filled Medication Name Start Date Stop Date Current Medication? Ordering Clinician Indication Dosage Frequency Signature (SIG) Comments Components Source Gabapentin 100 MG Gabapentin 100 MG 12-29 00:00: 00 No 1{capsu le_at_b edtime} QD Gabapentin 100 MG predniSONE 10 MG predniSONE 10 MG 12-29 00:00: 00 No predniSONE 10 MG Aspir-81 Aspir-81 12-23 00:00: 00 No Aspir- Mirtazapine 15 MG Mirtazapine 15 MG 12-23 00:00: 00 No 1{table t_at_be dtime} QD Mirtazapin e 15 MG Estradiol 0.1 MG/GM Estradiol 0.1 MG/GM 1-23 00:00: 00 No Estradiol 0.1 MG/GM diclofenac 50 mg EC tablet 5-09 00:00: 00 Yes [id number] 9109 50mg Take 1 tablet by mouth in the morning and 1 tablet in the evening. Take with meals. [facility] cyclobenzap rine 5 mg tablet 4-30 00:00: 00 Yes [facility] metFORMIN 500 mg tablet 4- 00:00: 00 Yes [facility] busPIRone 15 mg tablet 4- 00:00: 00 Yes [facility] lansoprazol e 30 mg capsule 4-05 00:00: 00 Yes [facility] Nitrofurant oin&Nit. Macrocryst 100 mg capsule 4-04 00:00: 00 Yes [facility] cephALEXin 500 mg capsule 4- 00:00: 00 Yes [facility] citalopram 20 mg tablet 3-30 00:00: 00 Yes [facility] DULoxetine 20 mg capsule 3-06 00:00: 00 Yes [facility] gabapentin 300 mg capsule 3-06 00:00: 00 Yes [facility] rosuvastati n 20 mg tablet 3-03 00:00: 00 Yes [facility] Crestor 20 mg Crestor 20 mg No QD Crestor 20 mg D-Mannose 500 MG D-Mannose 500 MG No 1{capsu le} BID D-Mannose 500 MG Losartan Potassium 25 MG Losartan Potassium 25 MG No 1{table t} BID Losartan Potassium 25 MG Immunizations Ordered Immunization Name Filled Immunization Name Date Status Comments Source Moderna COVID-19 Vaccine (Low Dose Booster) Moderna COVID-19 Vaccine (Low Dose Booster) 2021-05-03 15:03:00 Completed [facility] Moderna COVID-19 Vaccine (Low Dose Booster) Moderna COVID-19 Vaccine (Low Dose Booster) 2021-05-03 15:03:00 Completed [facility] Moderna COVID-19 Vaccine (Low Dose Booster) Moderna COVID-19 Vaccine (Low Dose Booster) 2021-05-03 15:03:00 Completed [facility] Moderna COVID-19 Vaccine (Low Dose Booster) Moderna COVID-19 Vaccine (Low Dose Booster) 2021-05-03 15:03:00 Completed [facility] Moderna COVID-19 Vaccine (Low Dose Booster) Moderna COVID-19 Vaccine (Low Dose Booster) 2021-05-03 15:03:00 Completed [facility] Moderna COVID-19 Vaccine (Low Dose Booster) Moderna COVID-19 Vaccine (Low Dose Booster) 2021-05-03 15:03:00 Completed [facility] Moderna COVID-19 Vaccine (Low Dose Booster) Moderna COVID-19 Vaccine (Low Dose Booster) 2021-05-03 15:03:00 Completed [facility] Moderna COVID-19 Vaccine (Low Dose Booster) Moderna COVID-19 Vaccine (Low Dose Booster) 2021-05-03 15:03:00 Completed [facility] Moderna COVID-19 Vaccine (Low Dose Booster) Moderna COVID-19 Vaccine (Low Dose Booster) 2021-05-03 15:03:00 Completed [facility] Prevnar 13 (PCV13) Prevnar 13 (PCV13) 2021-03-23 09:02:00 Completed [facility] Prevnar 13 (PCV13) Prevnar 13 (PCV13) 2021-03-23 09:02:00 Completed [facility] Prevnar 13 (PCV13) Prevnar 13 (PCV13) 2021-03-23 09:02:00 Completed [facility] Prevnar 13 (PCV13) Prevnar 13 (PCV13) 2021-03-23 09:02:00 Completed [facility] Prevnar 13 (PCV13) Prevnar 13 (PCV13) 2021-03-23 09:02:00 Completed [facility] Prevnar 13 (PCV13) Prevnar 13 (PCV13) 2021-03-23 09:02:00 Completed [facility] Prevnar 13 (PCV13) Prevnar 13 (PCV13) 2021-03-23 09:02:00 Completed [facility] Prevnar 13 (PCV13) Prevnar 13 (PCV13) 2021-03-23 09:02:00 Completed [facility] Prevnar 13 (PCV13) Prevnar 13 (PCV13) 2021-03-23 09:02:00 Completed [facility] Moderna COVID-19 Vaccine Moderna COVID-19 Vaccine 2020-09-14 15:04:00 Completed [facility] Moderna COVID-19 Vaccine Moderna COVID-19 Vaccine 2020-09-14 15:04:00 Completed [facility] Moderna COVID-19 Vaccine Moderna COVID-19 Vaccine 2020-09-14 15:04:00 Completed [facility] Moderna COVID-19 Vaccine Moderna COVID-19 Vaccine 2020-09-14 15:04:00 Completed [facility] Moderna COVID-19 Vaccine Moderna COVID-19 Vaccine 2020-09-14 15:04:00 Completed [facility] Moderna COVID-19 Vaccine Moderna COVID-19 Vaccine 2020-09-14 15:04:00 Completed [facility] Moderna COVID-19 Vaccine Moderna COVID-19 Vaccine 2020-09-14 15:04:00 Completed [facility] Moderna COVID-19 Vaccine Moderna COVID-19 Vaccine 2020-09-14 15:04:00 Completed [facility] Moderna COVID-19 Vaccine Moderna COVID-19 Vaccine 2020-09-14 15:04:00 Completed [facility] Moderna COVID-19 Vaccine Moderna COVID-19 Vaccine 2020-08-18 15:03:00 Completed [facility] Moderna COVID-19 Vaccine Moderna COVID-19 Vaccine 2020-08-18 15:03:00 Completed [facility] Moderna COVID-19 Vaccine Moderna COVID-19 Vaccine 2020-08-18 15:03:00 Completed [facility] Moderna COVID-19 Vaccine Moderna COVID-19 Vaccine 2020-08-18 15:03:00 Completed [facility] Moderna COVID-19 Vaccine Moderna COVID-19 Vaccine 2020-08-18 15:03:00 Completed [facility] Moderna COVID-19 Vaccine Moderna COVID-19 Vaccine 2020-08-18 15:03:00 Completed [facility] Moderna COVID-19 Vaccine Moderna COVID-19 Vaccine 2020-08-18 15:03:00 Completed [facility] Moderna COVID-19 Vaccine Moderna COVID-19 Vaccine 2020-08-18 15:03:00 Completed [facility] Moderna COVID-19 Vaccine Moderna COVID-19 Vaccine 2020-08-18 15:03:00 Completed [facility] FLUZONE HIGH DOSE OVER 65 FLUZONE HIGH DOSE OVER 65 2019-02-25 15:17:00 Completed [facility] FLUZONE HIGH DOSE OVER 65 FLUZONE HIGH DOSE OVER 65 2019-02-25 15:17:00 Completed [facility] FLUZONE HIGH DOSE OVER 65 FLUZONE HIGH DOSE OVER 65 2019-02-25 15:17:00 Completed [facility] FLUZONE HIGH DOSE OVER 65 FLUZONE HIGH DOSE OVER 65 2019-02-25 15:17:00 Completed [facility] FLUZONE HIGH DOSE OVER 65 FLUZONE HIGH DOSE OVER 65 2019-02-25 15:17:00 Completed [facility] FLUZONE HIGH DOSE OVER 65 FLUZONE HIGH DOSE OVER 65 2019-02-25 15:17:00 Completed [facility] FLUZONE HIGH DOSE OVER 65 FLUZONE HIGH DOSE OVER 65 2019-02-25 15:17:00 Completed [facility] FLUZONE HIGH DOSE OVER 65 FLUZONE HIGH DOSE OVER 65 2019-02-25 15:17:00 Completed [facility] FLUZONE HIGH DOSE OVER 65 FLUZONE HIGH DOSE OVER 65 2019-02-25 15:17:00 Completed [facility] FLUZONE HIGH DOSE OVER 65 FLUZONE HIGH DOSE OVER 65 2018-02-14 14:24:00 Completed [facility] FLUZONE HIGH DOSE OVER 65 FLUZONE HIGH DOSE OVER 65 2018-02-14 14:24:00 Completed [facility] FLUZONE HIGH DOSE OVER 65 FLUZONE HIGH DOSE OVER 65 2018-02-14 14:24:00 Completed [facility] FLUZONE HIGH DOSE OVER 65 FLUZONE HIGH DOSE OVER 65 2018-02-14 14:24:00 Completed [facility] FLUZONE HIGH DOSE OVER 65 FLUZONE HIGH DOSE OVER 65 2018-02-14 14:24:00 Completed [facility] FLUZONE HIGH DOSE OVER 65 FLUZONE HIGH DOSE OVER 65 2018-02-14 14:24:00 Completed [facility] FLUZONE HIGH DOSE OVER 65 FLUZONE HIGH DOSE OVER 65 2018-02-14 14:24:00 Completed [facility] FLUZONE HIGH DOSE OVER 65 FLUZONE HIGH DOSE OVER 65 2018-02-14 14:24:00 Completed [facility] FLUZONE HIGH DOSE OVER 65 FLUZONE HIGH DOSE OVER 65 2018-02-14 14:24:00 Completed [facility] Moderna COVID-19 Vaccine (Low Dose Booster) Moderna COVID-19 Vaccine (Low Dose Booster) Unknown Completed [facility] Moderna COVID-19 Vaccine Moderna COVID-19 Vaccine Unknown Completed [facility] FLUZONE HIGH DOSE OVER 65 FLUZONE HIGH DOSE OVER 65 Unknown Completed [facility] Prevnar 13 (PCV13) Prevnar 13 (PCV13) Unknown Completed [facility] Moderna COVID-19 Vaccine (Low Dose Booster) Moderna COVID-19 Vaccine (Low Dose Booster) Unknown Completed [facility] Moderna COVID-19 Vaccine Moderna COVID-19 Vaccine Unknown Completed [facility] FLUZONE HIGH DOSE OVER 65 FLUZONE HIGH DOSE OVER 65 Unknown Completed [facility] Prevnar 13 (PCV13) Prevnar 13 (PCV13) Unknown Completed [facility] MODERNA COVID-19 VACCINE (LOW DOSE BOOSTER) MODERNA COVID-19 VACCINE (LOW DOSE BOOSTER) Unknown Completed [facility] Moderna COVID-19 Vaccine Moderna COVID-19 Vaccine Unknown Completed [facility] FLUZONE HIGH DOSE OVER 65 FLUZONE HIGH DOSE OVER 65 Unknown Completed [facility] Prevnar 13 (PCV13) Prevnar 13 (PCV13) Unknown Completed [facility] MODERNA COVID-19 VACCINE (LOW DOSE BOOSTER) MODERNA COVID-19 VACCINE (LOW DOSE BOOSTER) Unknown Completed [facility] Moderna COVID-19 Vaccine Moderna COVID-19 Vaccine Unknown Completed [facility] FLUZONE HIGH DOSE OVER 65 FLUZONE HIGH DOSE OVER 65 Unknown Completed [facility] Prevnar 13 (PCV13) Prevnar 13 (PCV13) Unknown Completed [facility] MODERNA COVID-19 VACCINE (LOW DOSE BOOSTER) MODERNA COVID-19 VACCINE (LOW DOSE BOOSTER) Unknown Completed [facility] Moderna COVID-19 Vaccine Moderna COVID-19 Vaccine Unknown Completed [facility] FLUZONE HIGH DOSE OVER 65 FLUZONE HIGH DOSE OVER 65 Unknown Completed [facility] Prevnar 13 (PCV13) Prevnar 13 (PCV13) Unknown Completed [facility] MODERNA COVID-19 VACCINE (LOW DOSE BOOSTER) MODERNA COVID-19 VACCINE (LOW DOSE BOOSTER) Unknown Completed [facility] Moderna COVID-19 Vaccine Moderna COVID-19 Vaccine Unknown Completed [facility] FLUZONE HIGH DOSE OVER 65 FLUZONE HIGH DOSE OVER 65 Unknown Completed [facility] Prevnar 13 (PCV13) Prevnar 13 (PCV13) Unknown Completed [facility] MODERNA COVID-19 VACCINE (LOW DOSE BOOSTER) MODERNA COVID-19 VACCINE (LOW DOSE BOOSTER) Unknown Completed [facility] Moderna COVID-19 Vaccine Moderna COVID-19 Vaccine Unknown Completed [facility] FLUZONE HIGH DOSE OVER 65 FLUZONE HIGH DOSE OVER 65 Unknown Completed [facility] Prevnar 13 (PCV13) Prevnar 13 (PCV13) Unknown Completed [facility] MODERNA COVID-19 VACCINE (LOW DOSE BOOSTER) MODERNA COVID-19 VACCINE (LOW DOSE BOOSTER) Unknown Completed [facility] Moderna COVID-19 Vaccine Moderna COVID-19 Vaccine Unknown Completed [facility] FLUZONE HIGH DOSE OVER 65 FLUZONE HIGH DOSE OVER 65 Unknown Completed [facility] Prevnar 13 (PCV13) Prevnar 13 (PCV13) Unknown Completed [facility] MODERNA COVID-19 VACCINE (LOW DOSE BOOSTER) MODERNA COVID-19 VACCINE (LOW DOSE BOOSTER) Unknown Completed [facility] Moderna COVID-19 Vaccine Moderna COVID-19 Vaccine Unknown Completed [facility] FLUZONE HIGH DOSE OVER 65 FLUZONE HIGH DOSE OVER 65 Unknown Completed [facility] Prevnar 13 (PCV13) Prevnar 13 (PCV13) Unknown Completed [facility] MODERNA COVID-19 VACCINE (LOW DOSE BOOSTER) MODERNA COVID-19 VACCINE (LOW DOSE BOOSTER) Unknown Completed [facility] Moderna COVID-19 Vaccine Moderna COVID-19 Vaccine Unknown Completed [facility] FLUZONE HIGH DOSE OVER 65 FLUZONE HIGH DOSE OVER 65 Unknown Completed [facility] Prevnar 13 (PCV13) Prevnar 13 (PCV13) Unknown Completed [facility] Fluad (IIV) - SDS - 0.5mL Fluad (IIV) - SDS - 0.5mL Unknown Completed [facility] Moderna COVID-19 Vaccine (Low Dose Booster) Moderna COVID-19 Vaccine (Low Dose Booster) Unknown Completed [facility] Moderna COVID-19 Vaccine Moderna COVID-19 Vaccine Unknown Completed [facility] FLUZONE HIGH DOSE OVER 65 FLUZONE HIGH DOSE OVER 65 Unknown Completed [facility] Prevnar 13 (PCV13) Prevnar 13 (PCV13) Unknown Completed [facility] Moderna COVID-19 Vaccine (Low Dose Booster) Moderna COVID-19 Vaccine (Low Dose Booster) Unknown Completed [facility] Moderna COVID-19 Vaccine Moderna COVID-19 Vaccine Unknown Completed [facility] FLUZONE HIGH DOSE OVER 65 FLUZONE HIGH DOSE OVER 65 Unknown Completed [facility] Prevnar 13 (PCV13) Prevnar 13 (PCV13) Unknown Completed [facility] Moderna COVID-19 Vaccine (Low Dose Booster) Moderna COVID-19 Vaccine (Low Dose Booster) Unknown Completed [facility] Moderna COVID-19 Vaccine Moderna COVID-19 Vaccine Unknown Completed [facility] FLUZONE HIGH DOSE OVER 65 FLUZONE HIGH DOSE OVER 65 Unknown Completed [facility] Prevnar 13 (PCV13) Prevnar 13 (PCV13) Unknown Completed [facility] Moderna COVID-19 Vaccine (Low Dose Booster) Moderna COVID-19 Vaccine (Low Dose Booster) Unknown Completed [facility] Moderna COVID-19 Vaccine Moderna COVID-19 Vaccine Unknown Completed [facility] FLUZONE HIGH DOSE OVER 65 FLUZONE HIGH DOSE OVER 65 Unknown Completed [facility] Prevnar 13 (PCV13) Prevnar 13 (PCV13) Unknown Completed [facility] Moderna COVID-19 Vaccine (Low Dose Booster) Moderna COVID-19 Vaccine (Low Dose Booster) Unknown Completed [facility] Moderna COVID-19 Vaccine Moderna COVID-19 Vaccine Unknown Completed [facility] FLUZONE HIGH DOSE OVER 65 FLUZONE HIGH DOSE OVER 65 Unknown Completed [facility] Prevnar 13 (PCV13) Prevnar 13 (PCV13) Unknown Completed [facility] Moderna COVID-19 Vaccine (Low Dose Booster) Moderna COVID-19 Vaccine (Low Dose Booster) Unknown Completed [facility] Moderna COVID-19 Vaccine Moderna COVID-19 Vaccine Unknown Completed [facility] FLUZONE HIGH DOSE OVER 65 FLUZONE HIGH DOSE OVER 65 Unknown Completed [facility] Prevnar 13 (PCV13) Prevnar 13 (PCV13) Unknown Completed [facility] Moderna COVID-19 Vaccine (Low Dose Booster) Moderna COVID-19 Vaccine (Low Dose Booster) Unknown Completed [facility] Moderna COVID-19 Vaccine Moderna COVID-19 Vaccine Unknown Completed [facility] FLUZONE HIGH DOSE OVER 65 FLUZONE HIGH DOSE OVER 65 Unknown Completed [facility] Prevnar 13 (PCV13) Prevnar 13 (PCV13) Unknown Completed [facility] Moderna COVID-19 Vaccine (Low Dose Booster) Moderna COVID-19 Vaccine (Low Dose Booster) Unknown Completed [facility] Moderna COVID-19 Vaccine Moderna COVID-19 Vaccine Unknown Completed [facility] FLUZONE HIGH DOSE OVER 65 FLUZONE HIGH DOSE OVER 65 Unknown Completed [facility] Prevnar 13 (PCV13) Prevnar 13 (PCV13) Unknown Completed [facility] Moderna COVID-19 Vaccine (Low Dose Booster) Moderna COVID-19 Vaccine (Low Dose Booster) Unknown Completed [facility] Moderna COVID-19 Vaccine Moderna COVID-19 Vaccine Unknown Completed [facility] FLUZONE HIGH DOSE OVER 65 FLUZONE HIGH DOSE OVER 65 Unknown Completed [facility] Prevnar 13 (PCV13) Prevnar 13 (PCV13) Unknown Completed [facility] Moderna COVID-19 Vaccine (Low Dose Booster) Moderna COVID-19 Vaccine (Low Dose Booster) Unknown Completed [facility] Moderna COVID-19 Vaccine Moderna COVID-19 Vaccine Unknown Completed [facility] FLUZONE HIGH DOSE OVER 65 FLUZONE HIGH DOSE OVER 65 Unknown Completed [facility] Prevnar 13 (PCV13) Prevnar 13 (PCV13) Unknown Completed [facility] Moderna COVID-19 Vaccine (Low Dose Booster) Moderna COVID-19 Vaccine (Low Dose Booster) Unknown Completed [facility] Moderna COVID-19 Vaccine Moderna COVID-19 Vaccine Unknown Completed [facility] FLUZONE HIGH DOSE OVER 65 FLUZONE HIGH DOSE OVER 65 Unknown Completed [facility] Prevnar 13 (PCV13) Prevnar 13 (PCV13) Unknown Completed [facility] Moderna COVID-19 Vaccine (Low Dose Booster) Moderna COVID-19 Vaccine (Low Dose Booster) Unknown Completed [facility] Moderna COVID-19 Vaccine Moderna COVID-19 Vaccine Unknown Completed [facility] FLUZONE HIGH DOSE OVER 65 FLUZONE HIGH DOSE OVER 65 Unknown Completed [facility] Prevnar 13 (PCV13) Prevnar 13 (PCV13) Unknown Completed [facility] Moderna COVID-19 Vaccine (Low Dose Booster) Moderna COVID-19 Vaccine (Low Dose Booster) Unknown Completed [facility] Moderna COVID-19 Vaccine Moderna COVID-19 Vaccine Unknown Completed [facility] FLUZONE HIGH DOSE OVER 65 FLUZONE HIGH DOSE OVER 65 Unknown Completed [facility] Prevnar 13 (PCV13) Prevnar 13 (PCV13) Unknown Completed [facility] Vital Signs Vital Name Observation Time Observation Value Comments S ource height 2024-12-29 15:00:00 64 [in_i] Commo n [facility] weight 2024-12-29 15:00:00 156.4 [lb_av] Co mmon [facility] [facility] temperature 2024-12-29 15:00:00 97.6 [degF] Com mon [facility] bmi 2024-12-29 15:00:00 26.84 kg/m2 Comm on [facility] oximetry 2024-12-29 15:00:00 97 % Commo n [facility] respiratory rate 2024-12-29 15:00:00 16 /min Common [facility] blood pressure systolic 2024-12-29 15:00:00 142 mm[Hg] [facility] blood pressure diastolic 2024-12-29 15:00:00 86 mm[Hg] Common [facility] height 2024-12-23 14:15:00 64 [in_i] Commo n [facility] weight 2024-12-23 14:15:00 156 [lb_av] Comm on [facility] temperature 2024-12-23 14:15:00 97.7 [degF] Com [facility] bmi 2024-12-23 14:15:00 26.77 kg/m2 Comm on [facility] oximetry 2024-12-23 14:15:00 98 % Commo n [facility] respiratory rate 2024-12-23 14:15:00 18 /min Common [facility] blood pressure systolic 2024-12-23 14:15:00 138 mm[Hg] [facility] blood pressure diastolic 2024-12-23 14:15:00 76 mm[Hg] Common [facility] height 2024-11-03 13:20:00 64 [in_i] Commo n [facility] weight 2024-11-03 13:20:00 153.2 [lb_av] Co mmon [facility] temperature 2024-11-03 13:20:00 96.7 [degF] Com [facility] bmi 2024-11-03 13:20:00 26.29 kg/m2 Comm on [facility] oximetry 2024-11-03 13:20:00 96 % Commo n [facility] respiratory rate 2024-11-03 13:20:00 18 /min [facility] blood pressure systolic 2024-11-03 13:20:00 126 mm[Hg] [facility] blood pressure diastolic 2024-11-03 13:20:00 62 mm[Hg] [facility] height 2024-09-16 13:15:00 64 [in_i] Commo n [facility] weight 2024-09-16 13:15:00 155 [lb_av] Comm on [facility] temperature 2024-09-16 13:15:00 98.0 [degF] Com [facility] bmi 2024-09-16 13:15:00 26.6 kg/m2 Commo n [facility] oximetry 2024-09-16 13:15:00 98 % Commo n [facility] respiratory rate 2024-09-16 13:15:00 18 /min [facility] blood pressure systolic 2024-09-16 13:15:00 130 mm[Hg] [facility] blood pressure diastolic 2024-09-16 13:15:00 84 mm[Hg] [facility] height 2024-09-01 10:00:00 64 [in_i] Commo n [facility] weight 2024-09-01 10:00:00 154 [lb_av] Comm on [facility] temperature 2024-09-01 10:00:00 97.4 [degF] Com [facility] bmi 2024-09-01 10:00:00 26.43 kg/m2 Comm on [facility] oximetry 2024-09-01 10:00:00 96 % Commo n [facility] respiratory rate 2024-09-01 10:00:00 17 /min Common [facility] blood pressure systolic 2024-09-01 10:00:00 110 mm[Hg] Common [facility] blood pressure diastolic 2024-09-01 10:00:00 68 mm[Hg] [facility] height 2024-08-10 13:20:00 64 [in_i] Commo n [facility] weight 2024-08-10 13:20:00 156.6 [lb_av] Co mmon [facility] temperature 2024-08-10 13:20:00 97.5 [degF] Com mon [facility] bmi 2024-08-10 13:20:00 26.88 kg/m2 Comm on [facility] oximetry 2024-08-10 13:20:00 96 % Commo n [facility] respiratory rate 2024-08-10 13:20:00 17 /min [facility] blood pressure systolic 2024-08-10 13:20:00 117 mm[Hg] Common [facility] blood pressure diastolic 2024-08-10 13:20:00 70 mm[Hg] Common [facility] height 2024-06-22 14:30:00 64 [in_i] Commo n [facility] weight 2024-06-22 14:30:00 159.2 [lb_av] Co mmon [facility] temperature 2024-06-22 14:30:00 97.5 [degF] Com mon [facility] bmi 2024-06-22 14:30:00 27.32 kg/m2 Comm on [facility] oximetry 2024-06-22 14:30:00 96 % Commo n [facility] respiratory rate 2024-06-22 14:30:00 16 /min [facility] blood pressure systolic 2024-06-22 14:30:00 124 mm[Hg] [facility] blood pressure diastolic 2024-06-22 14:30:00 62 mm[Hg] [facility] height 2024-06-18 14:45:00 64 [in_i] Commo n [facility] weight 2024-06-18 14:45:00 162 [lb_av] Comm on [facility] temperature 2024-06-18 14:45:00 97.1 [degF] Com mon [facility] bmi 2024-06-18 14:45:00 27.8 kg/m2 Commo n [facility] oximetry 2024-06-18 14:45:00 96 % Commo n [facility] respiratory rate 2024-06-18 14:45:00 18 /min [facility] blood pressure systolic 2024-06-18 14:45:00 144 mm[Hg] [facility] blood pressure diastolic 2024-06-18 14:45:00 71 mm[Hg] [facility] height 2024-03-18 14:30:00 64 [in_i] Commo n [facility] weight 2024-03-18 14:30:00 163.6 [lb_av] Co mmon [facility] temperature 2024-03-18 14:30:00 97.9 [degF] Com mon [facility] bmi 2024-03-18 14:30:00 28.08 kg/m2 Comm on [facility] oximetry 2024-03-18 14:30:00 96 % Commo n [facility] respiratory rate 2024-03-18 14:30:00 18 /min Common [facility] blood pressure systolic 2024-03-18 14:30:00 109 mm[Hg] [facility] blood pressure diastolic 2024-03-18 14:30:00 71 mm[Hg] [facility] height 2024-02-11 14:30:00 64 [in_i] Commo n [facility] weight 2024-02-11 14:30:00 162 [lb_av] Comm on [facility] temperature 2024-02-11 14:30:00 97.4 [degF] Com mon [facility] bmi 2024-02-11 14:30:00 27.8 kg/m2 Commo n [facility] oximetry 2024-02-11 14:30:00 94 % Commo n [facility] blood pressure systolic 2024-02-11 14:30:00 128 mm[Hg] [facility] blood pressure diastolic 2024-02-11 14:30:00 74 mm[Hg] Common [facility] height 2024-02-11 14:20:00 64 [in_i] Commo n [facility] weight 2024-02-11 14:20:00 162 [lb_av] Comm on [facility] temperature 2024-02-11 14:20:00 97.4 [degF] Com [facility] bmi 2024-02-11 14:20:00 27.8 kg/m2 Commo n [facility] oximetry 2024-02-11 14:20:00 94 % Commo n [facility] blood pressure systolic 2024-02-11 14:20:00 128 mm[Hg] [facility] blood pressure diastolic 2024-02-11 14:20:00 74 mm[Hg] [facility] height 2024-02-11 14:20:00 64 [in_i] Commo n [facility] weight 2024-02-11 14:20:00 162 [lb_av] Comm on [facility] temperature 2024-02-11 14:20:00 97.4 [degF] Com [facility] bmi 2024-02-11 14:20:00 27.8 kg/m2 Commo n [facility] oximetry 2024-02-11 14:20:00 94 % Commo n [facility] blood pressure systolic 2024-02-11 14:20:00 128 mm[Hg] [facility] blood pressure diastolic 2024-02-11 14:20:00 74 mm[Hg] [facility] height 2023-11-20 14:00:00 64 [in_i] Commo n [facility] weight 2023-11-20 14:00:00 164.4 [lb_av] Co mmon [facility] temperature 2023-11-20 14:00:00 97.7 [degF] Com [facility] bmi 2023-11-20 14:00:00 28.22 kg/m2 Comm on [facility] oximetry 2023-11-20 14:00:00 98 % Commo n [facility] respiratory rate 2023-11-20 14:00:00 18 /min Common [facility] blood pressure systolic 2023-11-20 14:00:00 129 mm[Hg] [facility] blood pressure diastolic 2023-11-20 14:00:00 70 mm[Hg] Common [facility] height 2023-11-11 14:00:00 64 [in_i] Commo n [facility] weight 2023-11-11 14:00:00 160 [lb_av] Comm on [facility] temperature 2023-11-11 14:00:00 97.7 [degF] Com [facility] bmi 2023-11-11 14:00:00 27.46 kg/m2 Comm on [facility] oximetry 2023-11-11 14:00:00 97 % Commo n [facility] blood pressure systolic 2023-11-11 14:00:00 134 mm[Hg] Common [facility] blood pressure diastolic 2023-11-11 14:00:00 78 mm[Hg] [facility] Systolic blood pressure 2023-10-03 15:20:00 135 mm[Hg] [facility] Diastolic blood pressure 2023-10-03 15:20:00 86 mm[Hg] [facility] Heart rate 2023-10-03 15:20:00 82 /min [facility] Body height 2023-10-03 15:20:00 167.6 cm [facility] Body weight 2023-10-03 15:20:00 73.301 kg [facility] BMI 2023-10-03 15:20:00 26.08 kg/m2 [facility] height 2023-08-20 15:30:00 64 [in_i] Commo n [facility] weight 2023-08-20 15:30:00 160.8 [lb_av] Co mmon [facility] temperature 2023-08-20 15:30:00 97.7 [degF] Com mon [facility] bmi 2023-08-20 15:30:00 27.6 kg/m2 Commo n [facility] oximetry 2023-08-20 15:30:00 96 % Commo n [facility] respiratory rate 2023-08-20 15:30:00 18 /min Common [facility] blood pressure systolic 2023-08-20 15:30:00 143 mm[Hg] [facility] blood pressure diastolic 2023-08-20 15:30:00 69 mm[Hg] [facility] height 2023-06-12 10:10:00 64 [in_i] Commo n [facility] weight 2023-06-12 10:10:00 175 [lb_av] Comm on [facility] temperature 2023-06-12 10:10:00 98 [degF] Comm on [facility] bmi 2023-06-12 10:10:00 30.04 kg/m2 Comm on [facility] blood pressure systolic 2023-06-12 10:10:00 110 mm[Hg] [facility] blood pressure diastolic 2023-06-12 10:10:00 60 mm[Hg] [facility] height 2023-05-16 09:30:00 64 [in_i] Commo n [facility] weight 2023-05-16 09:30:00 162.2 [lb_av] Co [facility] temperature 2023-05-16 09:30:00 98.8 [degF] Com [facility] bmi 2023-05-16 09:30:00 27.84 kg/m2 Comm on [facility] oximetry 2023-05-16 09:30:00 97 % Commo n [facility] respiratory rate 2023-05-16 09:30:00 16 /min [facility] blood pressure systolic 2023-05-16 09:30:00 103 mm[Hg] [facility] blood pressure diastolic 2023-05-16 09:30:00 58 mm[Hg] [facility] height 2023-04-17 15:45:00 64 [in_i] Commo n [facility] weight 2023-04-17 15:45:00 161.4 [lb_av] Co on [facility] temperature 2023-04-17 15:45:00 97.6 [degF] Com mon [facility] bmi 2023-04-17 15:45:00 27.7 kg/m2 Commo n [facility] oximetry 2023-04-17 15:45:00 99 % Commo n [facility] respiratory rate 2023-04-17 15:45:00 18 /min Common [facility] blood pressure systolic 2023-04-17 15:45:00 135 mm[Hg] [facility] blood pressure diastolic 2023-04-17 15:45:00 67 mm[Hg] [facility] height 2023-02-01 10:40:00 64 [in_i] Commo n [facility] weight 2023-02-01 10:40:00 164.0 [lb_av] Co mmon [facility] temperature 2023-02-01 10:40:00 97.0 [degF] Com mon [facility] bmi 2023-02-01 10:40:00 28.15 kg/m2 Comm on [facility] oximetry 2023-02-01 10:40:00 97 % Commo n [facility] respiratory rate 2023-02-01 10:40:00 18 /min [facility] blood pressure systolic 2023-02-01 10:40:00 126 mm[Hg] [facility] blood pressure diastolic 2023-02-01 10:40:00 68 mm[Hg] [facility] height 2023-02-01 10:30:00 64 [in_i] Commo n [facility] weight 2023-02-01 10:30:00 164.0 [lb_av] Co mmon [facility] temperature 2023-02-01 10:30:00 97.0 [degF] Com mon [facility] bmi 2023-02-01 10:30:00 28.15 kg/m2 Comm on [facility] oximetry 2023-02-01 10:30:00 97 % Commo n [facility] respiratory rate 2023-02-01 10:30:00 18 /min Common [facility] blood pressure systolic 2023-02-01 10:30:00 126 mm[Hg] [facility] blood pressure diastolic 2023-02-01 10:30:00 68 mm[Hg] [facility] height 2022-08-17 09:00:00 64 [in_i] Commo n [facility] weight 2022-08-17 09:00:00 161.6 [lb_av] Co on [facility] temperature 2022-08-17 09:00:00 97.2 [degF] Com [facility] bmi 2022-08-17 09:00:00 27.74 kg/m2 Comm on [facility] oximetry 2022-08-17 09:00:00 97 % Commo n [facility] respiratory rate 2022-08-17 09:00:00 17 /min Common [facility] blood pressure systolic 2022-08-17 09:00:00 132 mm[Hg] Common [facility] blood pressure diastolic 2022-08-17 09:00:00 65 mm[Hg] Common [facility] height 2022-05-04 16:20:00 64 [in_i] Commo n [facility] weight 2022-05-04 16:20:00 158.0 [lb_av] Co on [facility] temperature 2022-05-04 16:20:00 97.3 [degF] Com [facility] bmi 2022-05-04 16:20:00 27.12 kg/m2 Comm on [facility] oximetry 2022-05-04 16:20:00 96 % Commo n [facility] respiratory rate 2022-05-04 16:20:00 16 /min Common [facility] blood pressure systolic 2022-05-04 16:20:00 100 mm[Hg] [facility] blood pressure diastolic 2022-05-04 16:20:00 68 mm[Hg] Common [facility] height 2022-02-02 15:20:00 66 [in_i] Commo n [facility] weight 2022-02-02 15:20:00 164.6 [lb_av] Co mmon [facility] temperature 2022-02-02 15:20:00 97.5 [degF] Com mon [facility] bmi 2022-02-02 15:20:00 26.56 kg/m2 Comm on [facility] oximetry 2022-02-02 15:20:00 95 % Commo n [facility] respiratory rate 2022-02-02 15:20:00 15 /min Common [facility] blood pressure systolic 2022-02-02 15:20:00 112 mm[Hg] [facility] blood pressure diastolic 2022-02-02 15:20:00 66 mm[Hg] Common [facility] height 2022-02-02 14:20:00 66 [in_i] Commo n [facility] weight 2022-02-02 14:20:00 164.6 [lb_av] Co on [facility] temperature 2022-02-02 14:20:00 97.5 [degF] Com [facility] bmi 2022-02-02 14:20:00 26.56 kg/m2 Comm on [facility] oximetry 2022-02-02 14:20:00 95 % Commo n [facility] respiratory rate 2022-02-02 14:20:00 15 /min Common [facility] blood pressure systolic 2022-02-02 14:20:00 112 mm[Hg] [facility] blood pressure diastolic 2022-02-02 14:20:00 66 mm[Hg] [facility] height 2021-11-14 09:40:00 66 [in_i] Commo n [facility] weight 2021-11-14 09:40:00 172 [lb_av] Comm on [facility] temperature 2021-11-14 09:40:00 97.7 [degF] Com [facility] bmi 2021-11-14 09:40:00 27.76 kg/m2 Comm on [facility] height 2021-10-24 16:40:00 66 [in_i] Commo n [facility] weight 2021-10-24 16:40:00 122 [lb_av] Comm on [facility] temperature 2021-10-24 16:40:00 97.2 [degF] Com mon [facility] bmi 2021-10-24 16:40:00 19.69 kg/m2 Comm on [facility] height 2021-10-03 11:00:00 66.00 [in_i] Com [facility] weight 2021-10-03 11:00:00 122.2 [lb_av] Co mmon [facility] temperature 2021-10-03 11:00:00 97.2 [degF] Com [facility] bmi 2021-10-03 11:00:00 19.72 kg/m2 Comm on [facility] oximetry 2021-10-03 11:00:00 97 % Commo n [facility] respiratory rate 2021-10-03 11:00:00 16 /min [facility] blood pressure systolic 2021-10-03 11:00:00 120 mm[Hg] [facility] blood pressure diastolic 2021-10-03 11:00:00 74 mm[Hg] Common [facility] height 2021-07-04 14:40:00 66.00 [in_i] Com [facility] weight 2021-07-04 14:40:00 173 [lb_av] Comm on [facility] temperature 2021-07-04 14:40:00 97.8 [degF] Com [facility] bmi 2021-07-04 14:40:00 27.92 kg/m2 Comm on [facility] oximetry 2021-07-04 14:40:00 95 % Commo n [facility] respiratory rate 2021-07-04 14:40:00 16 /min [facility] blood pressure systolic 2021-07-04 14:40:00 110 mm[Hg] [facility] blood pressure diastolic 2021-07-04 14:40:00 62 mm[Hg] [facility] height 2021-04-17 08:40:00 66.00 [in_i] Com mon [facility] weight 2021-04-17 08:40:00 176 [lb_av] Comm on [facility] bmi 2021-04-17 08:40:00 28.4 kg/m2 Commo n [facility] blood pressure systolic 2021-04-17 08:40:00 115 mm[Hg] [facility] blood pressure diastolic 2021-04-17 08:40:00 75 mm[Hg] [facility] Procedures Procedure Date / Time Performed Performing Clinicia n Source PVR 2024-03-18 00:00:00 [facility] REFERRAL- REQUEST/RESPONSE 2023-10-02 15:06:38 Doctor Unassigned, [place] [facility] REFERRAL- REQUEST/RESPONSE 2023-09-23 20:38:01 Doctor Unassigned, [place] [facility] PVR 2023-04-26 00:00:00 [facility] PVR 2023-04-17 00:00:00 [facility] Encounters Start Date/Time End Date/Time Encounter Type Admission Type Attending Clinicians Care Facility Care Department Encounter ID Source 2024-03-04 14:59:00 Outpatient LucasFabio vanegas [facility] [id number] [facility] 2023-11-11 14:07:00 Outpatient LucasFabio vanegas [facility] [id number] [facility] 2023-06-10 15:03:00 Outpatient LucasMarv vanegash [facility] [id number] [facility] 2022-12-14 14:16:00 Outpatient Fabio Lucas [facility] [id number] [facility] 2022-08-10 09:58:00 Outpatient Fabio Lucas [facility] [id number] [facility] 2022-06-14 13:29:00 Outpatient MAR, Na [facility] [id number] [facility] 2022-05-02 08:37:00 Outpatient Mar, Na [facility] [id number] [facility] 2022-04-12 16:21:00 Outpatient Mar, Na [facility] [id number] [facility] 2022-01-31 09:28:00 Outpatient Mar, Na [facility] [id number] [facility] 2021-11-08 11:15:01 Outpatient Mar, Na [facility] [id number] [facility] 2021-09-29 09:09:02 Outpatient Mar, Na [facility] [id number] [facility] 2021-07-03 14:46:00 Outpatient Mar, Na [facility] [id number] [facility] 2021-06-21 14:22:28 Outpatient Mar, Na [facility] [id number] [facility] 2021-06-21 13:42:15 Outpatient Mar, Na [facility] [id number] [facility] 2021-06-21 13:29:49 Outpatient Mar, Na [facility] [id number] [facility] 2021-06-21 13:29:15 Outpatient Mar, Na [facility] [id number] [facility] 2021-06-21 13:13:13 Outpatient Mar, Na [facility] [id number] [facility] 2021-06-21 13:12:38 Outpatient Mar, Na [facility] [id number] [facility] 2021-06-21 12:39:38 Outpatient Mar, Na [facility] [id number] [facility] 2021-06-21 12:38:55 Outpatient Mar, Na [facility] [id number] [facility] 2021-06-21 12:05:32 Outpatient Mar, Na [facility] [id number] [facility] 2021-06-21 12:05:08 Outpatient Mar, Na [facility] [id number] [facility] 2021-06-21 12:04:34 Outpatient Mar, Na [facility] [id number] [facility] 2021-06-21 12:03:18 Outpatient Elsy Rosado [facility] [id number] [facility] 2021-06-21 11:49:01 Outpatient Elsy Rosado [facility] [id number] [facility] 2021-06-21 11:48:17 Outpatient Elsy Rosado [facility] [id number] [facility] 2021-06-21 11:40:18 Outpatient Elsy Rosado [facility] [id number] [facility] 2024-12-29 00:00:00 2024-12-29 00:00:00 (TEL) [facility] [id number] [facility] 2024-12-29 00:00:00 2024-12-29 00:00:00 OFFICE VISIT ESTAB PT LEVEL 3 [facility] [id number] [facility] 2024-12-23 00:00:00 2024-12-23 00:00:00 OFFICE VISIT ESTAB PT LEVEL 4 [facility] [id number] [facility] 2024-12-22 00:00:00 2024-12-22 00:00:00 (TEL) [facility] [id number] [facility] 2024-11-25 00:00:00 2024-11-25 00:00:00 (TEL) [facility] [id number] [facility] 2024-11-03 00:00:00 2024-11-03 00:00:00 OFFICE VISIT ESTAB PT LEVEL 4 [facility] [id number] [facility] 2024-10-20 00:00:00 2024-10-20 00:00:00 (TEL) [facility] [id number] [facility] 2024-10-20 00:00:00 2024-10-20 00:00:00 (TEL) [facility] [id number] [facility] 2024-09-25 00:00:00 2024-09-25 00:00:00 (TEL) [facility] [id number] [facility] 2024-09-16 00:00:00 2024-09-16 00:00:00 OFFICE VISIT ESTAB PT LEVEL 3 [facility] [id number] [facility] 2024-09-01 00:00:00 2024-09-01 00:00:00 OFFICE VISIT ESTAB PT LEVEL 4 [facility] [id number] [facility] 2024-08-18 00:00:00 2024-08-18 00:00:00 (TEL) [facility] [id number] [facility] 2024-08-10 00:00:00 2024-08-10 00:00:00 (HOSP F/U) Hospital Follow Up [facility] [id number] [facility] 2024-08-05 00:00:00 2024-08-05 00:00:00 (TEL) [facility] [id number] [facility] 2024-08-04 00:00:00 2024-08-04 00:00:00 (TEL) [facility] [id number] [facility] 2024-07-17 00:00:00 2024-07-17 00:00:00 (TEL) [facility] [id number] [facility] 2023-10-02 00:00:00 2024-07-11 07:50:22 Orders Only Doctor Unassigned, [place] Doctor Unassigned, [place] [facility] [id number] [id number] [facility] 2023-09-23 00:00:00 2024-07-11 02:09:26 Orders Only Doctor Unassigned, [place] Doctor Unassigned, [place] [facility] [id number] [facility] 2024-06-22 00:00:00 2024-06-22 00:00:00 OFFICE VISIT ESTAB PT LEVEL 4 STLMLC STLMLC [id number] [facility] 2024-06-18 00:00:00 2024-06-18 00:00:00 OFFICE VISIT ESTAB PT LEVEL 4 STLMLC STLMLC [id number] [facility] 2024-06-02 00:00:00 2024-06-02 00:00:00 (TEL) STLMLC STLMLC [id number] [facility] 2024-05-13 00:00:00 2024-05-13 00:00:00 (TEL) STLMLC STLMLC [id number] [facility] 2024-04-21 00:00:00 2024-04-21 00:00:00 (TEL) STLMLC STLMLC [id number] [facility] 2024-04-17 00:00:00 2024-04-17 00:00:00 ([place]) Nurse Visit STLMLC STLMLC [id number] [facility] 2024-04-15 00:00:00 2024-04-15 00:00:00 (TEL) STLMLC STLMLC [id number] [facility] 2024-03-18 00:00:00 2024-03-18 00:00:00 OFFICE VISIT ESTAB PT LEVEL 3 STLMLC STLMLC [id number] [facility] 2024-02-11 00:00:00 2024-02-11 00:00:00 OFFICE VISIT ESTAB PT LEVEL 4 STLMLC STLMLC [id number] [facility] 2024-02-11 00:00:00 2024-02-11 00:00:00 SUB ANNUAL [facility] WELLNESS VISIT STLMLC STLMLC [id number] [facility] 2024-02-03 00:00:00 2024-02-03 00:00:00 (TEL) STLMLC STLMLC [id number] [facility] 2023-11-20 00:00:00 2023-11-20 00:00:00 OFFICE VISIT ESTAB PT LEVEL 4 STLMLC STLMLC [id number] [facility] 2023-11-11 00:00:00 2023-11-11 00:00:00 OFFICE VISIT ESTAB PT LEVEL 4 STLMLC STLMLC [id number] [facility] 2023-10-03 10:20:20 2023-10-03 23:59:00 Hospital Encounter [facility] [id number] [id number] [id number] [facility] 2023-10-03 10:30:00 2023-10-03 10:40:48 Outpatient R CROW [facility] [id number] [facility] 2023-10-03 10:30:00 2023-10-03 10:40:48 Office Visit Crow [facility] [id number] [id number] [id number] [facility] 2023-09-23 00:00:00 2023-09-23 00:00:00 (TEL) STLMLC STLMLC [id number] [facility] 2023-09-23 00:00:00 2023-09-23 00:00:00 (TEL) STLMLC STLMLC [id number] [facility] 2023-09-11 00:00:00 2023-09-11 00:00:00 (TEL) STLMLC STLMLC [id number] [facility] 2023-08-26 00:00:00 2023-08-26 00:00:00 (TEL) STLMLC STLMLC [id number] [facility] 2023-08-26 00:00:00 2023-08-26 00:00:00 (TEL) STLMLC STLMLC [id number] [facility] 2023-08-20 00:00:00 2023-08-20 00:00:00 OFFICE VISIT ESTAB PT LEVEL 3 STLMLC STLMLC [id number] [facility] 2023-06-12 00:00:00 2023-06-12 00:00:00 OFFICE VISIT ESTAB PT LEVEL 4 STLMLC STLMLC [id number] [facility] 2023-05-24 00:00:00 2023-05-24 00:00:00 (TEL) STLMLC STLMLC [id number] [facility] 2023-05-16 00:00:00 2023-05-16 00:00:00 OFFICE VISIT ESTAB PT LEVEL 4 STLMLC STLMLC [id number] [facility] 2023-05-03 00:00:00 2023-05-03 00:00:00 (TEL) STLMLC STLMLC [id number] [facility] 2023-04-26 00:00:00 2023-04-26 00:00:00 ([place]) Nurse Visit STLMLC STLMLC [id number] [facility] 2023-04-25 00:00:00 2023-04-25 00:00:00 (TEL) STLMLC STLMLC [id number] [facility] 2023-04-17 00:00:00 2023-04-17 00:00:00 OFFICE VISIT NEW PT LEVEL 3 STLMLC STLMLC [id number] [facility] 2023-02-01 00:00:00 2023-02-01 00:00:00 OFFICE VISIT ESTAB PT LEVEL 4 STLMLC STLMLC [id number] [facility] 2023-02-01 00:00:00 2023-02-01 00:00:00 SUB ANNUAL [facility] WELLNESS VISIT STLMLC STLMLC [id number] [facility] 2023-01-25 00:00:00 2023-01-25 00:00:00 (TEL) STLMLC STLMLC [id number] [facility] 2022-12-20 00:00:00 2022-12-20 00:00:00 (TEL) STLMLC STLMLC [id number] [facility] 2022-12-14 00:00:00 2022-12-14 00:00:00 (TEL) STLMLC STLMLC [id number] [facility] 2022-10-09 00:00:00 2022-10-09 00:00:00 (TEL) STLMLC STLMLC [id number] [facility] 2022-09-27 00:00:00 2022-09-27 00:00:00 (TEL) STLMLC STLMLC [id number] [facility] 2022-08-17 00:00:00 2022-08-17 00:00:00 OFFICE VISIT ESTAB PT LEVEL 4 STLMLC STLMLC [id number] [facility] 2022-08-10 00:00:00 2022-08-10 00:00:00 (TEL) STLMLC STLMLC [id number] [facility] 2022-05-04 00:00:00 2022-05-04 00:00:00 (TEL) STLMLC STLMLC [id number] [facility] 2022-05-04 00:00:00 2022-05-04 00:00:00 OFFICE VISIT EST PT LEVEL 3 STLMLC STLMLC [id number] [facility] 2022-04-26 00:00:00 2022-04-26 00:00:00 (TEL) STLMLC STLMLC [id number] [facility] 2022-04-26 00:00:00 2022-04-26 00:00:00 OL DIG E/M SVC 11-20 MIN STLMLC STLMLC [id number] [facility] 2022-04-11 00:00:00 2022-04-11 00:00:00 (TEL) STLMLC STLMLC [id number] [facility] 2022-02-02 00:00:00 2022-02-02 00:00:00 SUB ANNUAL M[facility] WELLNESS VISIT STLMLC STLMLC [id number] [facility] 2022-02-02 00:00:00 2022-02-02 00:00:00 OFFICE VISIT EST PT LEVEL 3 STLMLC STLMLC [id number] [facility] 2021 00:00:00 2021 00:00:00 (TEL) STLMLC STLMLC [id number] [facility] 2021-11-14 00:00:00 2021-11-14 00:00:00 OFFICE VISIT ESTAB PT LEVEL 1 STLMLC STLMLC [id number] [facility] 2021-11-08 00:00:00 2021-11-08 00:00:00 (TEL) STLMLC STLMLC [id number] [facility] 2021-11-08 00:00:00 2021-11-08 00:00:00 OL DIG E/M SVC 11-20 MIN STLMLC STLMLC [id number] [facility] 2021-10-24 00:00:00 2021-10-24 00:00:00 (TEL) STLMLC STLMLC [id number] [facility] 2021-10-24 00:00:00 2021-10-24 00:00:00 OFFICE VISIT EST PT LEVEL 3 STLMLC STLMLC [id number] [facility] 2021-10-03 00:00:00 2021-10-03 00:00:00 OFFICE VISIT ESTAB PT LEVEL 4 STLMLC STLMLC [id number] [facility] 2021-07-04 00:00:00 2021-07-04 00:00:00 OFFICE VISIT ESTAB PT LEVEL 4 STLMLC STLMLC [id number] [facility] 2021-05-11 00:00:00 2021-05-11 00:00:00 (TEL) STLMLC STLMLC [id number] [facility] 2021-05-03 00:00:00 2021-05-03 00:00:00 (COVID Inj) COVID Injection STLMLC STLMLC [id number] [facility] 2021-04-17 00:00:00 2021-04-17 00:00:00 OL DIG E/M SVC 11-20 MIN STLMLC STLMLC [id number] [facility] 2021-01-17 00:00:00 2021-01-17 00:00:00 Outpatient STLMLC STLMLC [id number] [facility] 2020-12-28 00:00:00 2020-12-28 00:00:00 Outpatient STLMLC STLMLC [id number] [facility] 2020-12-19 00:00:00 2020-12-19 00:00:00 Outpatient STLMLC STLMLC [id number] [facility] 2020-12-16 00:00:00 2020-12-16 00:00:00 Outpatient STLMLC STLMLC [id number] [facility] 2020-12-08 00:00:00 2020-12-08 00:00:00 Outpatient STLMLC STLMLC [id number] [facility] 2020-11-20 00:00:00 2020-11-20 00:00:00 Outpatient STLMLC STLMLC [id number] [facility] 2020-11-04 00:00:00 2020-11-04 00:00:00 Outpatient STLMLC STLMLC [id number] [facility] 2020-08-05 00:00:00 2020-08-05 00:00:00 Outpatient STLMLC STLMLC [id number] [facility] 2020-04-19 00:00:00 2020-04-19 00:00:00 Outpatient STLMLC STLMLC [id number] [facility] 2020-04-11 00:00:00 2020-04-11 00:00:00 Outpatient STLMLC STLMLC [id number] [facility] 2020-02-18 00:00:00 2020-02-18 00:00:00 Outpatient STLMLC STLMLC [id number] [facility] Results Test Description Test Time Test Comments Results Result Co mments Source REFERRAL- REQUEST/[id number] 15:06:38[facility] an unspecified provider[id number] 20:38:01 Ordered by an unspecified provider.[facility]/REFL [id number] 00:00:00CLINICAL INFORMATIONPATHOLOGISTREPORT NOTESSCREENERDEXA, BONE DENSITY AXIAL SKELEDEXA, BONE DENSITY AXIAL SKELE
[2025-01-15 15:02] LABS: Absolute Lymphocytes (CBC) 4.1 K/uL (0.7-4.9); Hematocrit 40.4 % (36.0-45.0); Hemoglobin 13.0 g/dL (12.0-15.0); MCH 28.0 pg (27.0-35.0); MCHC 32.1 g/dL (32.0-36.0); MCV 87.1 fL (80-100); MPV 8.8 fL (7.6-11.3); Nucleated RBC Absolute Count 0.0 (0-0); Nucleated Red Blood Cells % 0.0 % (0-0); RBC Red Blood Cell Count 4.64 M/uL (3.86-4.86); White Blood Count 11.80 thou/uL (4.3-10.9)
[2025-01-15 15:23] LABS: ALT/SGPT 38 U/L (13-56); AST/SGOT 14 U/L (15-37); Albumin 3.5 g/dL (3.4-5.0); Albumin/Globulin Ratio 1.0 (1.1-1.8); Alkaline Phosphatase 72 U/L (45-117); Anion Gap 8.1 mEq/L (5.0-15.0); BUN Blood Urea Nitrogen 29 mg/dL (7-18); Globulin 3.5 g/dL (2.3-3.5); Glucose Level 92 mg/dL (74-106); Lipase 24 U/L (13-75); Magnesium 2.2 mg/dL (1.6-2.4); NT PRO-BNP 91 pg/mL (<450); Potassium 4.1 mEq/L (3.5-5.1); Troponin High Sensitivity 6.2 pg/mL (<58.9)
[2025-01-15 15:24] LABS: Bilirubin Indirect, Calculated 0.2 mg/dL (0.2-0.8)
--- NOTE | 2025-01-15 15:29 | RAD REPORT ---
EXAM: Chest Single View HISTORY: 84 years Female CHEST PAIN COMPARISON: 08/13/2024 FINDINGS: LUNGS/PLEURA: The lungs are clear. No pleural effusions or pneumothorax. No pulmonary edema. Similar mild elevation of the left diaphragm. CARDIAC/MEDIASTINUM: The cardiac silhouette is within normal limits. UPPER ABDOMEN: No significant abnormality. BONES: No acute abnormality. LINES/TUBES/OTHER: N/A IMPRESSION: No evidence of acute cardiopulmonary disease.
[2025-01-15 15:35] LABS: PT Prothrombin Time 11.3 SECONDS (10-13.0); Protime INR 1.0
--- NOTE | 2025-01-15 15:49 | ER ---
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 States she breathed into a bag and ll1 it got better. EMS states: VSS NS on monitor. Coronavirus screen: Client denies travel out of the [place] in the last 14 days. At this time, the client does not indicate any symptoms associated with coronavirus-19. Ebola Screen: Patient denies travel to an Ebola-affected area in the 21 days before illness onset. Initial Sepsis Screen: Does the patient meet any 2 criteria? No. Patient's initial sepsis screen is negative. Does the patient have a suspected source of infection? No. Patient's initial sepsis screen is negative. Risk Assessment: Do you want to hurt yourself or someone else? Patient reports no desire to harm self or others. Onset of symptoms was January 15, 2025. 14:39 Method Of Arrival: EMS: [facility] ll1 14:39 Acuity: ANGELA 3 ll1 Triage Assessment: 14:43 General: Appears in no apparent distress. Behavior is calm, cooperative, appropriate ll1 for age. Pain: Denies pain. Neuro: No deficits noted. Cardiovascular: Reports chest pain, had CP earlier. Respiratory: No deficits noted. Historical: - Allergies: 14:42 MING INHIBITORS; ll1 14:42 Codeine; ll1 14:42 metoclopramide HCl; ll1 14:42 sulfamethoxazole; ll1 14:42 TRIMETHOPRIM; ll1 - PMHx: 14:42 diabetes mellitus; Hypertensive disorder; Anxiety; Hypercholesterolemia; ll1 - PSHx: 14:42 Appendectomy; Cholecystectomy; ll1 - Immunization history:: Adult Immunizations up to date. - Infectious Disease History:: Denies. - Social history:: Smoking status: Patient/guardian denies using tobacco, the patient reports quitting approximately 45 years ago. Screenin:52 [facility] ED Fall Risk Assessment (Adult) History of falling in the last 3 months, hb including since admission No falls in past 3 months (0 pts) Confusion or Disorientation No (0 pts) Intoxicated or Sedated No (0 pts) Impaired Gait No (0 pts) Mobility Assist Device Used No (0 pt) Altered Elimination No (0 pt) Score/Fall Risk Level 0 - 2 = Low Risk Maintained a safe environment, Hourly rounding (assess needs \T\ fall precautionary measures) done. Abuse screen: Denies threats or abuse. Nutritional screening: No deficits noted. Tuberculosis screening: No symptoms or risk factors identified. Assessment: 15:55 Reassessment: No changes from previously documented assessment. Patient and/or family ll1 updated on plan of care and expected duration. Pain level reassessed. Patient is alert, oriented x 3, equal unlabored respirations, skin warm/dry/pink. 15:55 Pain: Pain does not radiate. Pain began 2 hours ago. ll1 Vital Signs: 14:39 BP 101 / 84; Pulse 80; Resp 17; Temp 98; Pulse Ox 98% ; Weight 65.77 kg; Height 5 ft. 6 ll1 in. ; Pain 0/10; 15:00 BP 120 / 80; Pulse 72; Resp 17; Pulse Ox 95% on R/A; ll1 15:55 BP 124 / 76; Pulse 72; Resp 17; Pulse Ox 99% ; Pain 0/10; ll1 14:39 Body Mass Index 23.40 (65.77 kg, 167.64 cm) ll1 14:39 Pain Scale: Adult ll1 15:55 Pain Scale: Adult ll1 ED Course: 14:38 Patient arrived in ED. ll1 14:40 Yuliya Lucas MD is Attending Physician. sp3 14:42 Triage completed. ll1 14:42 Fredrick Alvarez FNP-C is PHCP. dr5 14:42 Arm band placed on Patient placed in an exam room, on a stretcher. ll1 14:43 Trinh Walters, QUANG is Primary Nurse. ll1 14:52 Patient has correct armband on for positive identification. Bed in low position. hb Provided Education on: ER procedures and process. Client placed on continuous cardiac and pulse oximetry monitoring. NIBP monitoring applied. ekg monitor on. 14:52 Initial lab(s) drawn, by me, sent to lab. EKG done. Missed attempt(s): 22 gauge in hb right antecubital area. Bleeding controlled, band aid applied, catheter tip intact. Patient maintains SpO2 saturation greater than 95% on room air. 15:12 XRAY Chest (1 view) In Process Unspecified. EDMS 15:55 No provider procedures requiring assistance completed. IV discontinued, intact, ll1 bleeding controlled, No redness/swelling at site. Pressure dressing applied. Administered Medications: No medications were administered Medication: 14:53 VIS not applicable for this client. hb Outcome: 15:48 Discharge ordered by . roxy 15:56 Discharged to home ambulatory, ll1 15:56 Condition: stable 15:56 Discharge instructions given to patient, Instructed on discharge instructions, follow up and referral plans. Demonstrated understanding of instructions, follow-up care, 15:57 Patient left the ED. ll1 Signatures: Dispatcher [employer] EDSD Mikala Nassar, RN Trinh Bedolla RN RN ll1 Yuliya Lucas MD MD sp3 Fredrick Alvarez, CODING FILE CLERK-C CODING FILE CLERK-Cdr5
--- NOTE | 2025-01-15 15:49 | EDPHYS ---
Physician Documentation [facility] Name: Sol Whittaker Age: 84 yrs Sex: Female : 1940 Arrival Date: 01/15/2025 Time: 14:26 Bed 17 Private MD: ED Physician Yuliya Lucas HPI: 01/15 18:31 This 84 yrs old Female presents to ER via EMS with complaints of Chest Pain. dr5 18:31 Onset: The symptoms/episode began/occurred acutely. Patient is a 84-year-old female dr5 with history of diabetes, hypertension, anxiety, hyperlipidemia coming in with shortness of breath and panic attack/epigastric discomfort that started prior to arrival. Patient reports that she was cleaning up her house in order for company to come over. Patient states that on her way here after breathing to bag that her pain is resolved.. Historical: - Allergies: 14:42 MING INHIBITORS; ll1 14:42 Codeine; ll1 14:42 metoclopramide HCl; ll1 14:42 sulfamethoxazole; ll1 14:42 TRIMETHOPRIM; ll1 - PMHx: 14:42 diabetes mellitus; Hypertensive disorder; Anxiety; Hypercholesterolemia; ll1 - PSHx: 14:42 Appendectomy; Cholecystectomy; ll1 - Immunization history:: Adult Immunizations up to date. - Infectious Disease History:: Denies. - Social history:: Smoking status: Patient/guardian denies using tobacco, the patient reports quitting approximately 45 years ago. ROS: 18:31 Constitutional: as per hpi dr5 Exam: 18:31 Constitutional: This is a well developed, well nourished patient who is awake, alert, dr5 and in no acute distress. Head/Face: Normocephalic, atraumatic. Eyes: Pupils equal round and reactive to light, extra-ocular motions intact. Lids and lashes normal. Conjunctiva and sclera are non-icteric and not injected. Cornea within normal limits. Periorbital areas with no swelling, redness, or edema. Neck: Trachea midline, no thyromegaly or masses palpated, and no cervical lymphadenopathy. Supple, full range of motion without nuchal rigidity, or vertebral point tenderness. No Meningismus. Chest/axilla: Normal chest wall appearance and motion. Nontender with no deformity. No lesions are appreciated. Cardiovascular: Regular rate and rhythm with a normal S1 and S2. Normal PMI, no JVD. No pulse deficits. Respiratory: Lungs have equal breath sounds bilaterally, clear to auscultation. No rales, rhonchi or wheezes noted. No increased work of breathing, no retractions or nasal flaring. Back: No spinal tenderness. No costovertebral tenderness. Full range of motion. Skin: Warm, dry with normal turgor. Normal color with no rashes, no lesions, and no evidence of cellulitis. MS/ Extremity: Pulses equal, no cyanosis. Neurovascular intact. Full, normal range of motion. Neuro: Awake and alert, GCS 15, oriented to person, place, time, and situation. Cranial nerves II-XII grossly intact. Motor strength 5/5 in all extremities. Sensory grossly intact. Cerebellar exam normal. Normal gait. Vital Signs: 14:39 BP 101 / 84; Pulse 80; Resp 17; Temp 98; Pulse Ox 98% ; Weight 65.77 kg; Height 5 ft. 6 ll1 in. ; Pain 0/10; 15:00 BP 120 / 80; Pulse 72; Resp 17; Pulse Ox 95% on R/A; ll1 15:55 BP 124 / 76; Pulse 72; Resp 17; Pulse Ox 99% ; Pain 0/10; ll1 14:39 Body Mass Index 23.40 (65.77 kg, 167.64 cm) ll1 14:39 Pain Scale: Adult ll1 15:55 Pain Scale: Adult ll1 MDM: 14:41 Medical Screening Exam initiated sp3 18:31 Differential diagnosis: viral Infection, bacterial infection, NSTEMI, STEMI, congestive dr5 heart failure, pancreatitis, pneumonia, bronchitis. Data reviewed: vital signs, nurses notes, lab test result(s), cardiac enzymes, troponin i, CBC, white blood cell count, hemoglobin, hematocrit, platelets, electrolytes, sodium, potassium, chloride, serum bicarbonate, BUN, creatinine, serum glucose, PT, EKG, radiologic studies, plain films. Consideration of Admission/Observation Escalation of care including admission/observation considered. Escalation considered patient found to have chest pain and or elevated troponin. I considered the following discharge prescriptions or medication management in the emergency department I discussed and recommended Over The Counter medications. Independent interpretation of the following test(s) in the Emergency Department X-Ray: My interpretation is Independent rotation of x-ray did not reveal infiltrates. quality assurance monitor body: rate is 72 beats/min, Rhythm is normal sinus rhythm, regular, with no ectopy, rapid ventricular response, Interpretation: normal rate, normal rhythm. Care significantly affected by the following chronic conditions: Diabetes, hypertension, hyperlipidemia, anxiety. Care significantly affected by the following Social Determinants of Health: Poor access to healthcare and/or lack of insurance, Poor access to transportation, Problems related to employment. Scoring Tools HEART Score: History: ECG: Age: Risk Factors: 1 or 2 risk factors (1), Troponin: Total Score = 3. Counseling: I had a detailed discussion with the patient and/or guardian regarding the historical points, exam findings, and any diagnostic results supporting the discharge/admit diagnosis, the presence of at least one elevated blood pressure reading (>120/80) during this emergency department visit, lab results, radiology results, the need for outpatient follow up, for definitive care, a family practitioner, to return to the emergency department if symptoms worsen or persist or if there are any questions or concerns that arise at home. Special discussion: I discussed with the patient/guardian in detail that at this point there is no indication for admission to the hospital. It is understood, however, that if the symptoms persist or worsen the patient needs to return immediately for re-evaluation. Based on the history and exam findings, there is no indication for further emergent testing or inpatient evaluation. I discussed with the patient/guardian the need to see the primary care provider for further evaluation of the symptoms. ED course: Patient denies chest pain during entire ER stay. Patient reports he is feeling much better. All labs printed and given to patient take to primary care doctor. All labs also explained to patient in detail. Patient reports she is comfortable going home and would like to follow-up with her primary care doctor. All question answered. Strict ER precautions given.. 01/15 14:41 Order name: Basic Metabolic Panel; Complete Time: 15:25 sp3 01/15 14:41 Order name: CBC with Diff; Complete Time: 15: sp3 01/15 14:41 Order name: LFT's; Complete Time: 15:25 sp3 01/15 14:41 Order name: Magnesium; Complete Time: 15:25 sp3 01/15 14:41 Order name: NT PRO-BNP; Complete Time: 15:25 sp3 01/15 14:41 Order name: PT-INR; Complete Time: 15:36 sp3 01/15 14:41 Order name: Troponin HS; Complete Time: 15:25 sp3 01/15 14:41 Order name: Lipase; Complete Time: 15:25 sp3 01/15 14:41 Order name: XRAY Chest (1 view); Complete Time: 15:31 sp3 01/15 14:41 Order name: Cardiac monitoring; Complete Time: 14:43 sp3 01/15 14:41 Order name: EKG - Nurse/Tech; Complete Time: 14:43 sp3 01/15 14:41 Order name: IV Saline Lock; Complete Time: 14:52 sp3 01/15 14:41 Order name: Labs collected and sent; Complete Time: 14:52 3 01/15 14:41 Order name: O2 Per Protocol; Complete Time: 14:43 sp3 01/15 14:41 Order name: O2 Sat Monitoring; Complete Time: 14:43 sp3 EC:43 Rate is 70 beats/min. Rhythm is regular. QRS [place] is Normal. IA interval is normal at dr5 158 msec. QRS interval is normal at 80 msec. QT interval is normal at 366 msec. Clinical impression: Abnormal EKG without significant change and No evidence of ischemia. 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 dr5 - Epigastric pain dr5 Followup: dr5 - With: Emergency Department - When: As needed - Reason: Worsening of condition Followup: dr5 - With: Private Physician - When: 1 - 2 days - Reason: Recheck today's complaints, Continuance of care, Re-evaluation by your physician Discharge Instructions: - Discharge Summary Sheet dr5 - Panic Attack dr5 Forms: - Medication Reconciliation Form dr5 - Patient Portal Instructions dr5 - Leadership Thank You Letter dr5 Signatures: Dispatcher [employer] EDMikala Richards RN RN hb Lewis, Lynsay, RN RN ll1 Yuliya Lucas MD MD sp3 Fredrick Alvarez, [employer]-C [employer]-Cdr5 Corrections: (The following items were deleted from the chart) 14:41 14:41 BASIC METABOLIC PANEL+C.LAB.BRZ ordered. EDMS EDMS 14:41 14:41 CBC+H.LAB.BRZ ordered. EDMS EDMS 14:41 14:41 HEPATIC FUNCTION+C.LAB.BRZ ordered. EDMS EDMS 14:41 14:41 MAGNESIUM+C.LAB.BRZ ordered. EDMS EDMS 14:41 14:41 PROBNP+C.LAB.BRZ ordered. EDMS EDMS 14:41 14:41 PROTIME (+INR)+COAG.LAB.BRZ ordered. EDMS EDMS 14:41 14:41 Troponin High Sensitivity+C.LAB.BRZ ordered. EDMS EDMS 14: 14:41 Chest Single View+RAD.RAD.BRZ ordered. EDMS EDMS 14:42 14:41 LIPASE+C.LAB.BRZ ordered. EDMS EDMS
[2025-01-15 17:21] VITALS: TEMP 98
[2025-01-15 17:25] VITALS: BP 124/76; O2SAT 99
== END 2025-01-15 15:57 | disposition home or self-care (01) ==
LOC: ER 14:26
DX: F41.0 Panic disorder [episodic paroxysmal anxiety] (principal); R10.13 Epigastric pain; I10 Essential (primary) hypertension
CPT/HCPCS: 36415; 71045; 80048; 80076; 83690; 83735; 83880; 84484; 85025; 85610; 93005; 99284